=== PATIENT | female | born 1940 | race Caucasian/White ===

== ENCOUNTER 2022-04-25 10:07 | Inpatient (IN) | payer MEDICARE ==
[~2022-04-25] VITALS: Ht 160 cm; Wt 107.8 kg
[2022-04-25] MEDS ORDERED: RIVA20TA2 PO (11:02)
[2022-04-25] MEDS ORDERED: OXYC1TAB11 PO (11:02)
[2022-04-25] MEDS ORDERED: CYCL10TA25 PO (11:02)
[2022-04-25] MEDS ORDERED: METO50TA7 PO (11:02)
[2022-04-25] MEDS ORDERED: LEVO100T7 PO (11:02)
[2022-04-25] MEDS ORDERED: CFTR1PB IV (11:02)
[2022-04-25] MEDS ORDERED: CYAN-41 PO (11:02)
[2022-04-25 11:15] VITALS: BP 112/65
[2022-04-25] MEDS ORDERED: FLEET ENEMA ADULT 1 EA BTL PR PRN (11:15)
[2022-04-25] MEDS ORDERED: MELATONIN 3 MG TABLET PO PRN (11:15)
[2022-04-25] MEDS ORDERED: diphenhydrAMINE 25 MG TAB (BENADRYL) PO PRN (11:15)
[2022-04-25] MEDS ORDERED: BISACODYL 10 MG SUPP (DULCOLAX) PR PRN (11:15)
[2022-04-25] MEDS ORDERED: guaiFENesin/CODEINE (ROBITUSSIN AC) 10ML UDC PO PRN (11:15)
[2022-04-25] MEDS ORDERED: ACETAMINOPHEN 325 MG TABLET PO PRN (11:15)
[2022-04-25] MEDS ORDERED: ALPRAZolam 0.25 MG (XANAX) TAB PO PRN (11:15)
[2022-04-25] MEDS ORDERED: LACTULOSE SYRUP 10GM/15ML (ENULOSE) 30ML UDC PO PRN (11:15)
[2022-04-25] MEDS ORDERED: CALCIUM CARBONATE 500 MG (TUMS) TAB.CHEW PO PRN (11:15)
[2022-04-25] MEDS ORDERED: LOPERAMIDE 2 MG (IMODIUM) TABLET PO PRN (11:15)
[2022-04-25] MEDS ORDERED: DOCUSATE SODIUM 100 MG (COLACE) CAP PO PRN (11:15)
[2022-04-25] MEDS ORDERED: ONDANSETRON 4 MG (ZOFRAN) ORAL DISSOLVE TAB PO PRN (11:15)
--- NOTE | 2022-04-25 11:54 | Physical Therapy Evaluation ---
PT Evaluation-General Medical Diagnosis Admission Date Apr 25, 2022 at 11:00 Medical Diagnosis: debility Onset Date: Apr 21, 2022 Therapy Diagnosis Therapy Diagnosis: impaired mobility, strength Precautions Precautions/Isolations: Fall Prevention, Standard Precautions Referral Physician: Opal Ortiz DO Reason for Referral: Evaluation/Treatment Medical History Additional Medical History knee surg Reviewed History: Yes Social History Home: [facility] Current Living Status: Children Entry Into Home: Stairs With Railing PT Steps Into Home: 5 Patient states she doesn't have to go to the basement or second floor. Prior Prior Level of Function SCALE: Activities may be completed with or without assistive devices. 9-Xxnaxrlbap-fushaxm completes the activity by him/herself with no assistance from a helper. 5-Set-up or Clean-up Assistance-helper sets up or cleans up; patient completes activity. Glidden assists only prior to or following the activity. 4-Supervision or Touching Assistance-helper provides verbal cues and/or touching/steadying and/or contact guard assistance as patient completes activity. Assistance may be provided throughout the activity or intermittently. 3-Partial/Moderate Assistance-helper does LESS THAN HALF the effort. Glidden lifts, holds or supports trunk or limbs, but provides less than half the effort. 2-Substantial/Maximal Assistance-helper does MORE THAN HALF the effort. Glidden lifts or holds trunk or limbs and provides more than half the effort. 7-Pesedenje-lpgdil does ALL the effort. Patient does none of the effort to complete the activity. Or, the assistance of 2 or more helpers is required for the patient to complete the activity. If activity was not attempted, code reason: 7-Patient Refused. 9-Not Applicable-not attempted and the patient did not perform the activity before the current illness, exacerbation or injury. 10-Not Attempted due to Environmental Limitations-(lack of equipment, weather restraints, etc.). 88-Not Attempted due to Medical Conditions or Safety Concerns. Bed Mobility: 6 Transfers (B,C,W/C): 6 Gait: 6 Indoor Mobility (Ambulation): Independent PT Evaluation-Current Subjective Patient in family vehicle pre tx, agrees to PT, has 9/10 low back pain. Will be co-treating with OT for part of tx due to poor patient mobility, strength, endurance, severe pain with activity, coordinate UE and LE during activity, safety and reduce risk of falls. Pain Section J - Health Conditions 1. Rarely or not at all 2. Occasionally 3. Frequently 4. Almost constantly 8. Unable to answer Pain Effect on Sleep: 4 Pain Interference with Therapy: 4 Pain Interference w/Day-to-Day: 4 Pt/Family Goals to be independent at home Objective Patient Orientation: Person, Place, Situation ROM/Strength ROM Lower Extremities WNL Strength Lower Extremities LLE (hip flexion 3/5, knee flexion 4/5, knee extension 4/5, dorsiflexion 4/5), RLE (hip flexion 3/5, knee flexion 4/5, knee extension 4/5, dorsiflexion 4/5) Sensory Vision: Functional Hearing: Impaired Sensation Right Lower Extremit: Intact Sensation Left Lower Extremity: Intact Transfers Roll Left & Right (QC): 6 Sit to Lying (QC): 4 Lying to Sitting/Side of Bed(Q: 4 Sit to Stand (QC): 4 Chair/Ori-sh-Qzltk Xfer(QC): 4 Toilet Transfer (QC): 4 Car Transfer (QC): 4 Patient performs rolling with independence, supine <-> sit SBA, sit <-> stand and transfers CGA, car transfer CGA. Patient has a lot of pain with movement, needs cues for hand placement and safety. Gait Does the Patient Walk?: Yes Mode of Locomotion: Walk Anticipated Mode of Locomotion: Walk Walk 10 feet (QC): 4 Walk 50 ft with 2 Turns(QC): 4 Walk 150 ft (QC): 4 Walking 10ft/uneven surface-QC: 4 Distance: 150'x2 Gait Assistive Device: FWW Comments/Gait Description Patient can ambulate 150' with a rolling walker with CGA (including 50' with at least 2 turns of 90 degrees and 10' over an uneven surface), gait is antalgic, has poor foot clearance, tends to slide feet across the floor, slow ambulation Wheelchair Training Does the Pt Use a Wheelchair?: No Wheel 50 ft with 2 turns (QC): 9 Wheel 150 ft (QC): 9 Stairs 1 Step (curb) (QC): 4 4 Steps (QC): 88 12 Steps (QC): 88 Walking Assistive Device: Walker Patient can go up and down 1 step using a rolling walker with CGA, cues for foot placement and safety. Balance Sitting Static: Normal Sitting Dynamic: Normal Standing Static: Normal Standing Dynamic: Good Picking up an Object (QC): 4 (CGA using a awning erector) Treatment Patient also toileted and performed some dressing. PT performed bed mobility and transfers, ambulation, stair training, positioning and safety during toileting and dressing, OT performed toileting, dressing, UE positioning and safety during activity. Assessment/Needs Patient in recliner post tx with nurse call, phone, tray, all needs met. Patient has impaired mobility, strength, endurance, severe pain with activity. However, just CGA for transfers and ambulation. Rehab Potential: Fair PT Short Term Goals Short Term Goals Time Frame: May 02, 2022 Sit to stand: 4 (SBA) Chair/oxm-sw-myeky transfer: 4 (SBA) Walk 10 feet: 4 (SBA) Walk 50 feet with two turns: 4 (SBA) Walk 150 feet: 4 (SBA) PT Seed Sorter Goals Seed Sorter Goals PT Jail Goals Time Frame: May 09, 2022 Roll Left to Right (QC): 6 Sit to Lying (QC): 6 Lying-Sitting on Side/Bed(QC): 6 Sit to Stand (QC): 6 Chair/Dju-fz-Kawjr Xfer(QC): 6 Toilet/Commode Transfer (QC): 6 Car Transfer (QC): 6 Does the Patient Walk: Yes Walk 10 feet (QC): 6 Walk 10ft-Uneven Surface(QC): 6 Walk 50ft with 2 Turns (QC): 6 Walk 150 ft (QC): 6 Wheel 50 feet with 2 turns (QC: 9 Wheel 150 feet: 9 1 Step (curb) (QC): 4 (SBA) 4 Steps (QC): 4 (SBA) 12 Steps (QC): 88 Picking up an Object (QC): 6 (using awning erector) PT Plan Problem List Problem List: Activity Tolerance, Functional Strength, Safety, Balance, Gait, Transfer, Bed Mobility, ROM Treatment/Plan Treatment Plan: Continue Plan of Care Treatment Plan: Bed Mobility, Education, Functional Activity Larry, Functional Strength, Group Therapy, Gait, Safety, Therapeutic Exercise, Transfers Treatment Duration: May 09, 2022 Frequency: At least 5 of 7 days/Wk (IRF) Estimated Hrs Per Day: 1.5 hours per day Patient and/or Family Agrees t: Yes Safety Risks/Education Patient Education: Gait Training, Transfer Techniques, Steps, Correct Positioning, Safety Issues Teaching Recipient: Patient Teaching Methods: Demonstration, Discussion Response to Teaching: Reinforcement Needed Discharge Recommendations Plan Patient will perform bed mobility and transfer training, balance and endurance training, functional strengthening, stair training, gait training, and education, to improve functional mobility and independence at home. Therapy Discharge Recommendati: Home & Family, Post Acute PT Time Time In: 1100 Time Out: 1210 DATE: Apr 25, 2022 Total Billed Treatment Time: 60 Total Billed Treatment 1 visit EVM 10' FA 50' PT eval from 2025-0715, OT eval from [id number], co-treat from [id number] MEE SURESH PT Apr 25, 2022 11:54
--- NOTE | 2022-04-25 11:54 | Occupational Therapy Eval ---
OT Evaluation-General/PLF Medical Diagnosis Admission Date Apr 25, 2022 at 11:00 Medical Diagnosis: debility Onset Date: Apr 21, 2022 Therapy Diagnosis Therapy Diagnosis: Decreased ADL status, weakness Precautions Precautions/Isolations: Fall Prevention, Standard Precautions Referral Physician: Angel Brown Reason: Evaluation/Treatment Medical History Additional Medical History nephrolithiasis, HTN, hypothyroidism, morbid obesity, permanent afib, hypertrophic nonobstructive cardiomyopathy, SSS s/p pacemaker placement, HADLEY on CPAP, ESWL, hemorrhoidectomy, L breast biopsy, L knee replacement. Current History ED via EMS from home with reports of rigors upon awakening and new onset of midline low back pain. Social History Home: Single Level Current Living Status: Children (daughter and son in law) ADL-Prior Level of Function SCALE: Activities may be completed with or without assistive devices. 0-Xxmmfggytg-ktsfzlo completes the activity by him/herself with no assistance from a helper. 5-Set-up or Clean-up Assistance-helper sets up or cleans up; patient completes activity. Chamberlain assists only prior to or following the activity. 4-Supervision or Touching Assistance-helper provides verbal cues and/or touching/steadying and/or contact guard assistance as patient completes activity. Assistance may be provided throughout the activity or intermittently. 3-Partial/Moderate Assistance-helper does LESS THAN HALF the effort. Chamberlain lifts, holds or supports trunk or limbs, but provides less than half the effort. 2-Substantial/Maximal Assistance-helper does MORE THAN HALF the effort. [place]lain lifts or holds trunk or limbs and provides more than half the effort. 5-Rkuyusziy-zvxfhj does ALL the effort. Patient does none of the effort to complete the activity. Or, the assistance of 2 or more helpers is required for the patient to complete the activity. If activity was not attempted, code reason: 7-Patient Refused. 9-Not Applicable-not attempted and the patient did not perform the activity before the current illness, exacerbation or injury. 10-Not Attempted due to Environmental Limitations-(lack of equipment, weather restraints, etc.). 88-Not Attempted due to Medical Conditions or Safety Concerns. ADL PLOF Comments Pt reports IND with ADLs and functional mobility at PLOF, no AD. Pt's family reports she should have been using an AD, but pt didn't want to. Pt has a walk in shower with SC. Pt typically assists with cooking/cleaning and letting her daughter's dog outside. Self Care: Independent Functional Cognition: Independent DME/Equipment: Bath Chair, Shower OT Current Status Subjective Pt agreeable to OT Tx. Reports pain 9/10 in low back, indicates this is new since her recent illnesses. Pain Numeric Pain Scale: 9 Location: Lower Location Body Site: Back Mental Status/Objective Patient Orientation: Person, Place, Situation Current Glasses/Contacts: Yes Hearing Aids: No Dentures/Partials: Yes (at home) Hand Dominance: Right Upper Extremity ROM WFL, RUE shoulder flexion to approx 90 degrees, LUE shoulder flexion to approx 110 degrees Upper Extremity Coordination WFL Upper Extremity Sensation WFL Upper Extremity Strength grossly 3+/5 ADL-Treatment Eating (QC): 6 Oral Hygiene (QC): 5 (per pt report) Shower/Bathe Self (QC): 4 (SBA) Upper Body Dressing (QC): 5 (Per pt report) Lower Body Dressing (QC): 4 (Per pt report, SBA) On/Off Footwear (QC): 6 (IND donning/doffing gripper socks and slip on shoes at chair level.) Toileting Hygiene (QC): 4 (SBA) Other Treatments OT evaluation complete. OT/PT cotreat due to skill of 2 clinicians required which a pc network technician could not perform in order to coordinate UE/LEs, decrease fall risk, and due to pt's limitations in pain, strength, and activity tolerance. OT focused on UE placement, ADLs, and cues for sequencing and safety. PT focused on LE placement, gross overall movement, and transfers/mobility. Pt completed functional transfers and mobility using FWW, including car transfer, uneven surface, functional mobility using FWW, step, bed mobility. Pt transferred onto toilet to complete toileting, then transferred to recliner to complete ADLs. Post tx, pt in recliner, call light in reach and all needs met. IND with rolling, SBA supine to/from sit, CGA sit to/from stand, CGA car transfer, CGA 150' with FWW. Pt requires cues for UE placement with walker/transfers. Education OT Patient Education: Correct positioning, Energy conservation, Exercise program, Modified ADL techniques, Progress toward Goal/Update tx plan, Purpose of tx/functional activities, Rehab process Teaching Recipient: Patient Teaching Methods: Discussion Response to Teaching: Verbalize Understanding BIMS CAM BIMS Expression of Ideas and Wants: Without Difficulty Understanding Verbal Content: Understands Brief Interview/Mental Status: Yes IRF JHONNY BIMS: IRF JHONNY BIMS Response (Comments) Value Repitition of Three Words Three 3 Recalls Socks No, Could Not Recall 0 Recalls Blue No, Could Not Recall 0 Recalls Bed No, Could Not Recall 0 Year Correct 3 Month Accurate Within 5 Days 2 Day Correct 1 Total 9 CAM Mental Status Change/Baseline: 0 Inattention: 0 Disorganized thinkin Altered level of consciousness: 0 OT Short Term Goals Short Term Goals Time Frame: May 01, 2022 Shower/bathe self: 5 Upper body dressin Lower body dressin Putting on/taking off footwear: 5 OT Yarn Polishing Machine Operator Goals Yarn Polishing Machine Operator Goals Time Frame: May 17, 2022 Acute change in mental status: 0 Inattention: 0 Disorganized thinkin Altered level of consciousness: 0 Eating (QC): 6 Oral Hygiene (QC): 6 Toileting Hygiene (QC): 6 Shower/Bathe Self (QC): 6 Upper Body Dressing (QC): 6 Lower Body Dressing (QC): 6 On/Off Footwear (QC): 6 Additional Goals: 1-Demonstrate ADL Tasks, 2-Verbalize Understanding, 3-Improv eStrength/Larry 1=Demonstrate adherence to instructed precautions during ADL tasks. 2=Patient will verbalize/demonstrate understanding of assistive devices/modifications for ADL. 3=Patient will improve strength/tolerance for activity to enable patient to p erform ADL's. OT Education/Plan Problem List/Assessment Assessment: Decreased Activ Tolerance, Decreased UE Strength, Impaired Funct Balance, Impaired I ADL's, Impaired Self-Care Skills Discharge Recommendations Plan/Recommendations: Continue POC Treatment Plan/Plan of Care Patient would benefit from OT for education, treatment and training to promote independence in ADL's, mobility, safety and/or upper extremity function for ADL's. Plan of Care: ADL Retraining, Functional Mobility, Group Exercise/Act as Ind, U E Funct Exercise/Act Treatment Duration: May 17, 2022 Frequency: At least 5 of 7 days/Wk (IRF) Estimated Hrs Per Day: 1.5 hours per day Agreement: Yes Rehab Potential: Good Time Start Time: 11:10 Stop Time: 12:10 DATE: Apr 25, 2022 Total Time Billed (hr/min): 60 Billed Treatment Time OT eval from [id number], co-treat from [id number] 1, EVL (10'), FA 2 (30'), ADL (20') JESS REY OT Apr 25, 2022 11:54
--- NOTE | 2022-04-25 12:15 | PM&R Post Admission Assessment ---
PM&R HP Date of Visit: Apr 25, 2022 Time of Visit: 13:00 History of Present Illness CC: Debility from sepsis and E coli bacteremia HPI: This is an 81yoWF clinic patient of [facility] who has a h/o AF and HADLEY on CPAP who presents to the ARU following a hospital course at [facility] where she was admitted for sepsis from UTI and ultimately revealed E coli bacteremia sensitive to Rocephin. Patient feels much better today. Bowels are moving. PLOF was independent with all ADL's and no use of AD. Patient maintained on OAC. Patient has had multiple admits recently for various issues and is in need of strengthening in order to maintain clinical stability. Past Ccccfjf-Ugbeww-Qlukkv Hx Past Med/Social Hx: Reviewed Nursing Past Med/Soc Hx, Reviewed and Corrections made Patient Social History Marrital Status: Employed/Student: retired Alcohol Use: Denies Use Smoking Status: Never a Smoker Immunizations Up To Date Date of Influenza Vaccine: Feb 23, 2022 Past Medical History Respiratory: Sleep Apnea Currently Using CPAP: Yes Currently Using BIPAP: No Cardiac: Atrial Fibrillation, High Cholesterol, Hypertension Genitourinary: Bladder Infection Gastrointestinal: Gastroesophageal Reflux Musculoskeletal: Arthritis, Chronic Back Pain Endocrine: Hypothyroidsim Prior Level of Function Bed Mobility: 6 Transfers: 6 Gait: 6 Indoor Mobility (Ambulation): Independent Self Care: Independent Functional Cognition: Independent Current Level of Fuctioning Roll Left to Right: 6 Sit to Lyin Lying to Sitting/Side of Bed: 4 Sit to Stand: 4 Chair/Kqw-yr-Babpa Xfer: 4 Car Transfer: 4 Does the Patient Walk: Yes Mode of Locomotion: Walk Anticipated Mode of Locomotion: Walk Walk 10 feet: 4 Walk 50 ft with 2 Turns: 4 Walk 150 ft: 4 Walking 10ft on uneven surface: 4 Gait Assistive Device: FWW Does the Pt Use a Wheelchair: No Wheel 50 ft with 2 turns: 9 Wheel 150 ft: 9 1 Step (curb): 4 4 Steps: 88 Walking Assistive Device: Walker 12 Steps: 88 Picking up an Object: 4 (CGA using a metal extrusion supervisor) Eatin Oral Hygiene: 5 (per pt report) Shower/Bathe Self: 4 (SBA) Upper Body Dressin (Per pt report) Lower Body Dressin (Per pt report, SBA) On/Off Footwear: 6 (IND donning/doffing gripper socks and slip on shoes at chair level.) Toileting Hygiene: 4 (SBA) PM&R Allergy/Meds/Data Review Allergies Coded Allergies: No Known Drug Allergies (Unverified , 04/25/22) Home Medications Scheduled Ceftriaxone Sod (Ceftriaxone), 1 GM IV DAILY, (Reported) Cyanocobalamin (Vitamin B-12) (Vitamin B-12), 1,000 MCG PO DAILY, (Reported) Levothyroxine Sodium (Levothyroxine Sodium), 100 MCG PO DAILY, (Reported) Metoprolol Succinate (Metoprolol Succinate), 50 MG PO DAILY, (Reported) Rivaroxaban (Xarelto Tablet), 20 MG PO DAILY, (Reported) Scheduled PRN Cyclobenzaprine HCl (Cyclobenzaprine HCl), 10 MG PO Q8H PRN for MUSCLE SPASMS, (Reported) Oxycodone HCl/Acetaminophen (Oxycodone-Acetaminophen 5-325), 1 EACH PO Q4H PRN for PAIN-SEVERE, (Reported) Current Medications Current Medications Reviewed Review of Systems Constitutional: see HPI, dizziness, malaise, weakness EENTM: no symptoms reported Respiratory: no symptoms reported Cardiovascular: no symptoms reported Gastrointestinal: no symptoms reported Genitourinary: no symptoms reported Musculoskeletal: back pain, joint pain, muscle pain, muscle stiffness, muscle cramps, muscle twitching, muscle weakness Skin: no symptoms reported Psychiatric/Neurological: No Symptoms Reported All Other Systems Reviewed Negative Unless Noted: Yes Physical Exam Physical Exam Vital Signs Capillary Refill : Height, Weight, BMI Height: '" Weight: lbs. oz. kg; BMI Method: General Appearance: No Apparent Distress, WD/WN, Chronically ill, Obese Eyes: Bilateral Eye Normal Inspection, Bilateral Eye PERRL HEENT: PERRL/EOMI, Normal ENT Inspection, Pharynx Normal Neck: Full Range of Motion, Normal Inspection, Non Tender, Supple, Carotid Bruit Respiratory: Chest Non Tender, Lungs Clear, Normal Breath Sounds, No Accessory Muscle Use, No Respiratory Distress Cardiovascular: Regular Rate, Rhythm, No Edema, No Gallop, No JVD, No Murmur, Normal Peripheral Pulses Gastrointestinal: Normal Bowel Sounds, No Organomegaly, No Pulsatile Mass, Non Tender, Soft Back: Normal Inspection, No CVA Tenderness, Decreased Range of Motion Extremity: Normal Capillary Refill, Normal Inspection, Non Tender, No Calf Tenderness, No Pedal Edema Neurologic/Psychiatric: Alert, Oriented x3, No Motor/Sensory Deficits, Normal Mood/Affect, Abnormal Gait, Motor Weakness (generalized) Skin: Normal Color, Warm/Dry Lymphatic: No Adenopathy PM&R Medical Assessment & Plan REHAB/MEDICAL ASSESSMENT AND PLAN: REHAB IMPAIRMENT GROUP: Debility ETIOLOGIC DIAGNOSIS: Debility The comorbidities that impact the patients function and/or functional outcome by: poor stamina, advanced age, recent bacteremia, fall risk REHAB PLAN: The patient is being admitted to our comprehensive inpatient rehabilitation facility and can tolerate the intensity of service consisting of at least: 180 minutes of therapy a day, 5 out of 7 days a week Rehab treatment will consist of: PT OT will focus on regaining function with use of AD in order to prevent fall and increase stamina in order to regain independence The patient/family has a good understanding of our discharge process and will benefit from an interdisciplinary inpatient rehabilitation program. The patient has potential to make improvement and is in need of at least two of the following multidisciplinary therapies including but not limited to physical, occupational, speech, and prosthetics and orthotics. Additionally the patient will need services from respiratory, nutritional services, wound care, psychology, etc. (Customize this to each patient). Given the patients complex condition and risk of further medical complications, rehabilitation services cannot be safely or effectively provided at a lower level of care such as a retirement facility. BARRIERS TO DISCHARGE: advanced age ESTIMATED LOS: 7 days DISPOSITION: Home RELEVANT CHANGES SINCE PREADMISSION SCREENING: I have compared the patients medical and functional status at the time of the preadmission screening and there are: no changes PROGNOSIS: Good REHABILITATION GOALS: 1. PT OT will focus on regaining function with use of AD in order to prevent fall and increase stamina in order to regain independence All the above goals were reviewed with the patient and he/she is in agreement. By signing this document, I acknowledge that I have personally performed a full physical examination on this patient within 24 hours of admission to this inpatient rehabilitation facility and have determined the patient to be able to tolerate the above course of treatment at an intensive level for a reasonable period of time. I will be completing a detailed individualized Plan of Care for this patient by day #4 of the patients stay based upon the Preadmission Screen, the Post-Admission Evaluation, and the therapy evaluations. Admission Dx/Comorbidities: (1) Debility ICD Codes: R53.81 - Other malaise Assessment/Plan Assessment and Plan Assess & Plan/Chief Complaint Assessment: Debility E coli bacteremia maintained on Rocephin HADLEY on CPAP HTN HLP AF UTI OA Chronic pain Plan: Pain control IV abx Monitor closely BM regimen PT OT JEYSON SHEFFIELD DO Apr 25, 2022 12:15
[2022-04-25] MEDS ORDERED: RX-CYCLOBENZAPRINE 10 MG (FLEXERIL) TAB PPK#3 PO PRN (12:30)
[2022-04-25] MEDS ORDERED: CATHETER FLUSH 10 ML SYR IVP PRN (13:00)
--- NOTE | 2022-04-25 13:05 | ST Cognitive Linguistic Eval ---
Speech Evaluation-General Medical Diagnosis Debility Onset Date: Apr 21, 2022 Therapy Diagnosis Therapy Diagnosis: Intact (Baseline) Cognition Precautions Precautions: Fall Precautions/Isolations: Fall Prevention, Standard Precautions Referral Referring Physician: Dr. Ortiz Reason for Referral: Evaluation/Treatment Medical History Current History The patient is an 81 year old female with a past medical history of nephrolithiasis, HTN, hypothyroidism, morbid obesity, permanent atrial fibrillation, hypertrophic non-obstructive cardiomyopathy, SSS s/p pacemaker placement, HADLEY (receiving CPAP), and L knee replacement, who presented to the acute rehabilitation unit with new onset of low back pain. Reviewed History: Yes Social History Current Living Status: Children Speech PLF-Current Status Prior Level of Function The patient (and the patient's son) denied recent concerns, changes, or difficulties with her cognitive, speech, or language ability. Per patient and son, the patient's cognition is at baseline function. Subjective The patient was seated upright in her recliner, awake and alert, upon entrance to her room by the clinician. The patient's son is present at bedside and remains for the assessment. The patient greeted the clinician appropriately and was agreeable to participation in the cognitive linguistic evaluation. Language Eval: Auditory Comprehends Simple Yes/No Ques: Functional Indent/Objects Multiple Martel: Functional Follows 1-Step Commands: Functional Follows General Conversations: Functional Language Eval: Verbal Language Completes Spontaneous Greeting: Functional Produces Auto, Serial Info: Functional Imitates Simple Words/Phrases: Functional Word Finding: Functional Requests Basic Needs: Functional States Basic Personal Info: Functional Language Evaluation: Reading Follows Simple Written Direct: Functional The patient's son provided the patient with his reading glasses which aided the patient's vision. Per son, he will bring the patient's glasses to her in the near future. Cognitive Patient Orientation The patient was independently oriented to self, location, month, day of the week, and year. Objective Cognitive Domain Attention: WNL Memory: WNL Problem Solving: Mild (Baseline.) Visuospatial Skills: Mild (Aided with the presence of reading glasses.) Composite Severity Rating: WNL (Minimal impairments (baseline).) Clock Drawing Severity Rating: WNL Objective Formal/Standardized Tests [facility] Mental Status Exam (UMS) Results The patient demonstrated a result of +26/30 on the SLUMS correlating to cognitive linguistic skills within normal limits per SLUMS protocol. Oral Motor/Speech Production The patient does not display dysarthria or apraxia of speech. The patient is 100% intelligible in known and unknown contexts. Impression The patient displayed minimal cognitive deficits throughout the standardized screening in the areas of problem solving. The clinician discussed the patient's impairments with the patient and the patient's son. Per patient's son (and patient), the patient is currently at baseline cognitive function. If a decline in the patient's cognitive status is appreciated by the patient, family member o r staff, the clinician encourages a follow up evaluation and consult. Speech-Plan Treatment Plan Speech Therapy Treatment Plan: Discontinue ST Treatment Duration: Apr 25, 2022 Frequency: 1 time per week Estimated Hrs Per Day: .5 hour per day Rehab Potential: Good Pt/Family Agrees to Plan: Yes Safety Risks/Education Teaching Recipient: Patient, Family Teaching Methods: Discussion Response to Teaching: Verbalize Understanding Education Topics Provided: Results, Recommendations, Plan of Care Time Speech Therapy Time In: 12:10 Speech Therapy Time Out: 12:40 DATE: Apr 25, 2022 Total Billed Time: 30 Billed Treatment Time 1, NOLBERTO JUNG ELIZABETH ST Apr 25, 2022 13:05
--- NOTE | 2022-04-25 13:16 | Occupational Ther Daily Note ---
OT Current Status-Daily Note Subjective Pt up in recliner, agreeable to OT tx. Mental Status/Objective Patient Orientation: Normal For Age ADL-Treatment Therapy Code Descriptions/Definitions Functional [place] Measure: 0=Not Assessed/NA 4=Minimal Assistance 1=Total Assistance 5=Supervision or Setup 2=Maximal Assistance 6=Modified [place] 3=Moderate Assistance 7=Complete IndependenceSCALE: Activities may be completed with or without assistive devices. 4-Qqgnwqvypv-nrhxvix completes the activity by him/herself with no assistance from a helper. 5-Set-up or Clean-up Assistance-helper sets up or cleans up; patient completes activity. [place] assists only prior to or following the activity. 4-Supervision or Touching Assistance-helper provides verbal cues and/or touching/steadying and/or contact guard assistance as patient completes activity. Assistance may be provided throughout the activity or intermittently. 3-Partial/Moderate Assistance-helper does LESS THAN HALF the effort. [place] lifts, holds or supports trunk or limbs, but provides less than half the effort. 2-Substantial/Maximal Assistance-helper does MORE THAN HALF the effort. [place] lifts or holds trunk or limbs and provides more than half the effort. 0-Oygeatmhw-ubhdvv does ALL the effort. Patient does none of the effort to complete the activity. Or, the assistance of 2 or more helpers is required for the patient to complete the activity. If activity was not attempted, code reason: 7-Patient Refused. 9-Not Applicable-not attempted and the patient did not perform the activity before the current illness, exacerbation or injury. 10-Not Attempted due to Environmental Limitations-(lack of equipment, weather restraints, etc.). 88-Not Attempted due to Medical Conditions or Safety Concerns. Eating (QC): 6 Other Treatment Pt up in recliner after lunch, agreeable to OT tx with focus on increasing BUE strength, fine motor strength/coordination and activity tolerance. Pt removed beads from moderate resistance theraputty, able to locate all beads without cues. Post tx, pt in recliner, call light in reach and all needs met. OT Short Term Goals Short Term Goals Time Frame: May 01, 2022 Shower/bathe self: 5 Upper body dressin Lower body dressin Putting on/taking off footwear: 5 OT Longterm Goals Defensive Line Coach Goals Time Frame: May 17, 2022 Acute change in mental status: 0 Inattention: 0 Disorganized thinkin Altered level of consciousness: 0 Eating (QC): 6 Oral Hygiene (QC): 6 Toileting Hygiene (QC): 6 Shower/Bathe Self (QC): 6 Upper Body Dressing (QC): 6 Lower Body Dressing (QC): 6 On/Off Footwear (QC): 6 Additional Goals: 1-Demonstrate ADL Tasks, 2-Verbalize Understanding, 3- ImproveStrength/Larry 1=Demonstrate adherence to instructed precautions during ADL tasks. 2=Patient will verbalize/demonstrate understanding of assistive devices/modifications for ADL. 3=Patient will improve strength/tolerance for activity to enable patient to perform ADL's. OT Education/Plan Problem List/Assessment Assessment: Decreased Activ Tolerance, Decreased UE Strength, Impaired Funct Balance, Impaired I ADL's, Impaired Self-Care Skills Discharge Recommendations Plan/Recommendations: Continue POC Treatment Plan/Plan of Care Patient would benefit from OT for education, treatment and training to promote independence in ADL's, mobility, safety and/or upper extremity function for ADL's. Plan of Care: ADL Retraining, Functional Mobility, Group Exercise/Act as Ind, UE Funct Exercise/Act Treatment Duration: May 17, 2022 Frequency: At least 5 of 7 days/Wk (IRF) Estimated Hrs Per Day: 1.5 hours per day Agreement: Yes Rehab Potential: Good Time Start Time: 12:55 Stop Time: 13:10 DATE: Apr 25, 2022 Total Time Billed (hr/min): 15 Billed Treatment Time 1, FA JESS REY OT Apr 25, 2022 13:16
[2022-04-25] MEDS: CATHETER FLUSH 10 ML SYR IVP SCH ×2 (14:00→20:54)
--- NOTE | 2022-04-25 14:28 | Physical Therapy Daily Note ---
PT Daily Note-Current Subjective Pt. in recliner, agrees to sup and seated LE ex. Pt. c/o pain in low back with attempts to move trunk and body up in chair and as she raised and lowered her head and trunk in he recliner Pain Numeric Pain Scale: 6 Location: Medial Location Body Site: Back Pain Description: Ache Section J - Health Conditions 1. Rarely or not at all 2. Occasionally 3. Frequently 4. Almost constantly 8. Unable to answer Pain Effect on Sleep: 4 Pain Interference with Therapy: 4 Pain Interference w/Day-to-Day: 4 Appearance appears fatigued, eyes closed mostly, low voice Mental Status Patient Orientation: Normal For Age Transfers SCALE: Activities may be completed with or without assistive devices. 9-Xtwgxabrnr-bqmgxuo completes the activity by him/herself with no assistance from a helper. 5-Set-up or Clean-up Assistance-helper sets up or cleans up; patient completes activity. [place] assists only prior to or following the activity. 4-Supervision or Touching Assistance-helper provides verbal cues and/or touching/steadying and/or contact guard assistance as patient completes activity. Assistance may be provided throughout the activity or intermittently. 3-Partial/Moderate Assistance-helper does LESS THAN HALF the effort. [place] lifts, holds or supports trunk or limbs, but provides less than half the effort. 2-Substantial/Maximal Assistance-helper does MORE THAN HALF the effort. [place] lifts or holds trunk or limbs and provides more than half the effort. 3-Bknewjajy-jkbijy does ALL the effort. Patient does none of the effort to complete the activity. Or, the assistance of 2 or more helpers is required for the patient to complete the activity. If activity was not attempted, code reason: 7-Patient Refused. 9-Not Applicable-not attempted and the patient did not perform the activity before the current illness, exacerbation or injury. 10-Not Attempted due to Environmental Limitations-(lack of equipment, weather restraints, etc.). 88-Not Attempted due to Medical Conditions or Safety Concerns. scooted self up in recliner with it reclined Exercises Supine Ex: Bridging, Ankle pumps, Quad Set, Glut sets, Heel Slides, Scooting, Straight leg raise, Hip abd/add Supine Reps: 15 Treatments instruction in use of recliner for positioning and comfort, sup and sit LE exs Assessment Current Status: Good Progress pt. fatigued PT Short Term Goals Short Term Goals Time Frame: May 02, 2022 Sit to stand: 4 (SBA) Chair/zmt-rt-zwvuq transfer: 4 (SBA) Walk 10 feet: 4 (SBA) Walk 50 feet with two turns: 4 (SBA) Walk 150 feet: 4 (SBA) PT Residential Goals Drawer In Hand Goals PT Residential Goals Time Frame: May 09, 2022 Roll Left & Right (QC): 6 Sit to Lying (QC): 6 Lying-Sitting on Side/Bed(QC): 6 Sit to Stand (QC): 6 Chair/Ngu-zp-Pqgsj Xfer(QC): 6 Toilet Transfer (QC): 6 Car Transfer (QC): 6 Does the Patient Walk: Yes Walk 10 feet (QC): 6 Walk 50ft with 2 Turns (QC): 6 Walk 150 ft (QC): 6 Walking 10ft on Uneven Surface: 6 1 Step (curb) (QC): 4 (SBA) 4 Steps (QC): 4 (SBA) 12 Steps (QC): 88 Picking up an Object (QC): 6 (using molding plasterer) Wheel 50 feet with 2 turns (QC: 9 Wheel 150 feet: 9 PT Plan Treatment/Plan Treatment Plan: Continue Plan of Care Treatment Plan: Bed Mobility, Education, Functional Activity Larry, Functional Strength, Group Therapy, Gait, Safety, Therapeutic Exercise, Transfers Treatment Duration: May 09, 2022 Frequency: At least 5 of 7 days/Wk (IRF) Estimated Hrs Per Day: 1.5 hours per day Patient and/or Family Agrees t: Yes Safety Risks/Education Patient Education: Correct Positioning, Safety Issues Teaching Recipient: Patient Teaching Methods: Demonstration, Discussion Response to Teaching: Verbalize Understanding, Return Demonstration, Reinforcement Needed Time Time In: 1410 Time Out: 1425 DATE: Apr 25, 2022 Total Billed Treatment Time: 15 Total Billed Treatment 1,EX15m NIKITA NEWELL RN MATERNAL CHILD Apr 25, 2022 14:28
[2022-04-25] MEDS: oxyCODONE/APAP 5/325MG (PERCOCET 5) TABLET PO PRN (17:36)
[2022-04-25] MEDS: SENNA W/DOCUSATE (SENOKOT S) TABLET PO SCH (20:53)
[2022-04-25] MEDS: DOCUSATE SODIUM 100 MG (COLACE) CAP PO SCH (20:53)
[2022-04-25 20:54] VITALS: BP 106/56
[2022-04-25] MEDS: polyethylene glycoL POWDER 17 GM (MIRALAX) PACK PO SCH (21:10)
[2022-04-26] MEDS: CATHETER FLUSH 10 ML SYR IVP SCH ×3 (04:10→21:48)
[2022-04-26] MEDS: oxyCODONE/APAP 5/325MG (PERCOCET 5) TABLET PO PRN ×4 (04:10→21:37)
[2022-04-26] MEDS: LEVOTHYROXINE 100 MCG (LEVOTHROID) TAB PO SCH (06:00)
[2022-04-26 06:12] LABS: BASOPHILS % (AUTO) 0 % (0-10); EOSINOPHILS # (AUTO) 0.1 10^3/uL (0.0-0.3); EOSINOPHILS % (AUTO) 1 % (0-10); HEMATOCRIT 27 % (35-52); HEMOGLOBIN 8.1 g/dL (11.5-16.0); LYMPHOCYTES # (AUTO) 1.2 10^3/uL (1.0-4.0); LYMPHOCYTES % (AUTO) 15 % (12-44); MEAN CORPUSCULAR HEMOGLOBIN 25 pg (25-34); MEAN CORPUSCULAR HGB CONC 31 g/dL (32-36); MEAN CORPUSCULAR VOLUME 81 fL (80-99); MEAN PLATELET VOLUME 10.7 fL (9.0-12.2); MONOCYTES # (AUTO) 0.6 10^3/uL (0.0-1.0); MONOCYTES % (AUTO) 8 % (0-12); NEUTROPHILS # (AUTO) 5.9 10^3/uL (1.8-7.8); NEUTROPHILS % (AUTO) 74 % (42-75); PLATELET COUNT 262 10^3/uL (130-400)
[2022-04-26 06:30] LABS: ALBUMIN 2.6 GM/DL (3.2-4.5)
[2022-04-26 06:31] LABS: CALCIUM 8.1 MG/DL (8.5-10.1)
[2022-04-26 06:34] LABS: BILIRUBIN,TOTAL 0.8 MG/DL (0.1-1.0)
[2022-04-26 06:36] LABS: CREATININE SERUM 0.7 MG/DL (0.60-1.30)
--- NOTE | 2022-04-26 07:14 | PM&R H&P / Post Admit Assess ---
DAVID WARD 04/26/22 0714: History of Present Illness HPI/Chief Complaint Carmen Saunders (goes by [place]) is an 81yo F who was [facility] after having a UTI caused by E.coli. She was being treated for chronic back pain and reported a h/o poor eating/nutrition. She has been seen for her conditions by her PCP Nadeen Carpenter in [place], and said that the best alleviator of her back pain has been Biofreeze treatments. She was seen with her daughter in the room, both of them requested a medication plan that uses [facility] for the pharmacy, saying they would want a handwritten prescription if necessary. Source: patient, family Exam Limitations: no limitations Date Seen 04/25/22 Attending Physician [facility] PCP Admitting Physician: Opal Sheffield DO Attending Physician: Opal Sheffield DO Referring Physician Date of Admission Apr 25, 2022 at 11:00 Home Medications & Allergies Home Medications Reviewed patient Home Medication Reconciliation performed by pharmacy medication reconciliations emg technician and/or nursing. Patients Allergies have been reviewed. Allergies Allergies Coded Allergies No Known Drug Allergies (Oegqpyxiqu91/1/22) Past Fmuaqzc-Kfkzes-Fndbuf Hx Past Med/Social Hx: Reviewed Nursing Past Med/Soc Hx, Reviewed and Corrections made Patient Social History Marrital Status: Number of Children: 4 Number of living children: 4 Employed/Student: retired Alcohol Use: Denies Use Recreational Drug Use: No Smoking Status: Former Smoker 2nd Hand Smoke Exposure: No Physical Abuse Screen: No Sexual Abuse: No Recent Foreign Travel: No Contact w/other who traveled: No Recent Hopitalizations: Yes Recent Infectious Disease Expo: No Social History very active before Covid pandemic, smoked for 75 years but quit cold turkey, no drinking, rec drugs. no caffeine Immunizations Up To Date Tetanus Booster (TDap): Unknown Pediatric: No Date of Influenza Vaccine: Feb 23, 2022 Seasonal Allergies Seasonal Allergies: Yes Past Medical History Surgeries: Breast, Joint Replacement Cataract, hemmoroid Respiratory: Sleep Apnea Currently Using CPAP: Yes Currently Using BIPAP: No Cardiac: Atrial Fibrillation, High Cholesterol, Hypertension : No Reproductive: No Sexually Transmitted Disease: No HIV/AIDS: No Female Reproductive Disorders: Denies Genitourinary: Bladder Infection Gastrointestinal: Gastroesophageal Reflux Musculoskeletal: Arthritis, Chronic Back Pain Endocrine: Hypothyroidsim Are Your Blood Sugars Over 250: No HEENT: Macular Degeneration Loss of Vision: Right Hearing Impairment: Denies Cancer: Had a Breast biopsy (can't recall exactly how long ago) results came back negative. History of Blood Disorders: No Adverse Reaction to Blood [place]: No Family History Cancer (Brother(67yo) and Sister(60yo) both had bladder cancer) Review of Systems Constitutional: weakness Respiratory: no symptoms reported Cardiovascular: no symptoms reported Gastrointestinal: diarrhea, loss of appetite Genitourinary: no symptoms reported : No Control/STD Prophylaxis: None Musculoskeletal: back pain, muscle pain Skin: no symptoms reported Psychiatric/Neurological: No Symptoms Reported Physical Exam Exam Vital Signs Vital Signs Date Time Temp Pulse Resp B/P (MAP) Pulse Ox O2 Delivery O2 Flow Rate FiO2 04/25/22 21:16 98 Room Air 04/25/22 20:54 36.4 81 18 106/56 (73) Capillary Refill : General Appearance: No Apparent Distress, WD/WN, Chronically ill, Obese HEENT: PERRL/EOMI, Normal ENT Inspection, Pharynx Normal Neck: Full Range of Motion, Normal Inspection, Non Tender, Supple Respiratory: Chest Non Tender, Lungs Clear, Normal Breath Sounds, No Accessory Muscle Use, No Respiratory Distress Cardiovascular: Regular Rate, Rhythm, No Edema, No Gallop, No JVD, No Murmur, Normal Peripheral Pulses Gastrointestinal: Normal Bowel Sounds, No Organomegaly, No Pulsatile Mass, Non Tender, Soft Back: No CVA Tenderness, Decreased Range of Motion, Vertebral Tenderness Extremity: Normal Capillary Refill, Normal Inspection, Non Tender, No Calf Tenderness, No Pedal Edema Neurologic/Psychiatric: Alert, Oriented x3, No Motor/Sensory Deficits, Normal Mood/Affect Reflexes: 2+ Bicep (R), 2+ Bicep (L), 2+ Tricep (R), 2+ Tricep (L), 2+ Knee (R), 2+ Knee (L), 2+ Ankle (R), 2+ Ankle (L) Skin: Normal Color, Warm/Dry Lymphatic: No Adenopathy Results Results/Procedures Labs Laboratory Tests 04/26/22 05:55 Patient resulted labs reviewed. Assessment/Plan Assessment and Plan Assess & Plan/Chief Complaint A: Bacteremia 2/2 E.coli Chronic Back pain Poor nutrition P: Abx Rehab and Biofreeze Meal plan Post Admission Physician Asses The preadmission screen agrees with the post admission assessment that the patient is a good candidate for inpatient rehabilitation. The patient will have a comprehensive program of inpatient rehabilitation with a goal of maximizing level of functional independence prior to discharge home with [family]. The patient will have PT/OT ninety minutes per day, each discipline, five days a week for gait, strengthening, conditioning, balance, ADLs, any patient/family/caregiver training as necessary. Speech therapy to do cognitive assessment and treat as indicated. Rehabilitation nursing to assist with bowel, bladder, skin, wound care, medication administration, pain management. Cast Iron Dipper to assist with discharge planning, community reentry. SCD's for DVT prophylaxis. She appears to be well motivated to participate in three hours of therapy a day. She should be able to tolerate three hours of therapy a day from a medical standpoint. She should benefit from the three hours of therapy a day. She has a reasonable discharge plan, reasonable discharge rehabilitation goals and a supportive family. She has various comorbidities that need to be closely monitored with medications and treatments adjusted on a daily basis as needed. These include: [] Barriers to discharge for this patient who had been independent prior to this are for her to be modified independent to supervision for ADLs and mobility s kills prior to discharge home with [family], so as to lessen the burden of the caregivers. Risks for this patient include: 1. Fall 2. Fracture 3. DVT 4. Pulmonary embolism 5. Wound infection 6. Skin breakdown 7. Contractures 8. Poorly controlled pain 9. Urinary retention 10. UTI 11. Respiratory infection 12. Aspiration [] Estimated Length of Stay: []days Prognosis: Rehab prognosis appears good for goal of discharge home with [family] modified independent to supervision for ADLs and mobility skills. General: Alert, Oriented X3, Cooperative, No Acute Distress HEENT: Atraumatic, PERRLA, Mucous Memb Moist/[place] Neck: No JVD, No Thyromegaly, +2 Carotid Pulse No Bruit, No LAD Lungs: Clear to Auscultation Heart: Other (Afib) Abdomen: Normal Bowel Sounds, No Tenderness Extremities: No Clubbing, No Cyanosis, Normal Pulses Skin: No Rashes, No Significant Lesion Neuro: Normal Speech, Strength at 5/5 X4 Ext, Normal Tone, Sensation Intact, Cranial Nerves 3-12 NL Psych/Mental Status: Mental Status NL, Mood NL Supervisory-Addendum Brief Verification & Attestation Participated in pt care: history Personally performed: exam, history Care discussed with: Medical Student Procedures: n/a OPAL SHEFFIELD DO 04/27/22 0540: History of Present Illness Source: patient, family Exam Limitations: no limitations Time Seen by a Provider: 10:00 Past Qwnwmoy-Kyvceh-Ruohqs Hx Past Med/Social Hx: Reviewed Nursing Past Med/Soc Hx, Reviewed and Corrections made Patient Social History Marrital Status: single Review of Systems Constitutional: see HPI Physical Exam Exam General Appearance: No Apparent Distress, WD/WN, Chronically ill, Obese Post Admission Physician Asses Date seen by provider: Apr 25, 2022 Time seen by provider: 10:00 Admisison Dx: (1) Debility General: Alert, Oriented X3, Cooperative, No Acute Distress Supervisory-Addendum Brief Verification & Attestation Participated in pt care: history, MDM, physical Personally performed: exam, history, MDM, supervision of care Care discussed with: Medical Student Procedures: n/a Results interpretation: Verified all documentation Verification and Attestation of Medical Student E/M Service A medical student performed and documented this service in my presence. I reviewed and verified all information documented by the medical student and made modifications to such information, when appropriate. I personally performed the physical exam and medical decision making. Opal Sheffield, Apr 27, 2022,05:39 DAVID WARD Apr 26, 2022 07:14 OPAL SHEFFIELD DO Apr 27, 2022 05:40
[2022-04-26 07:42] VITALS: BP 104/70
[2022-04-26] MEDS: CYANOCOBALAMIN 1,000 MCG (VITAMIN B-12) TABLET PO SCH (08:13)
[2022-04-26] MEDS: SENNA W/DOCUSATE (SENOKOT S) TABLET PO SCH ×2 (08:13→21:48)
[2022-04-26] MEDS: DOCUSATE SODIUM 100 MG (COLACE) CAP PO SCH ×2 (08:13→21:47)
[2022-04-26] MEDS: meTOproloL SUCCINATE 50 MG (TOPROL XL) TAB PO SCH (08:14)
[2022-04-26] MEDS: RIVAROXABAN 20 MG TABLET (XARELTO) PO SCH (08:14)
[2022-04-26] MEDS ORDERED: CEFTRIAXONE SOD IV SCH (09:00)
[2022-04-26 09:09] VITALS: BP 106/59
[2022-04-26] MEDS: cefTRIAXone 1 GM/50 ML (PRE-MIX) IV SCH (09:14)
[2022-04-26] MEDS: CYCLOBENZAPRINE 10 MG (FLEXERIL) TAB PO PRN (09:20)
[2022-04-26] MEDS: polyethylene glycoL POWDER 17 GM (MIRALAX) PACK PO SCH ×2 (09:25→21:48)
--- NOTE | 2022-04-26 10:05 | Occupational Ther Daily Note ---
OT Current Status-Daily Note Subjective Pt agreeable to OT tx, rates 10/10 pain across lower back. Pain Numeric Pain Scale: 10-Worst Possible Pain Location: Lower Location Body Site: Back Mental Status/Objective Patient Orientation: Normal For Age ADL-Treatment Therapy Code Descriptions/Definitions Functional [place] Measure: 0=Not Assessed/NA 4=Minimal Assistance 1=Total Assistance 5=Supervision or Setup 2=Maximal Assistance 6=Modified [place] 3=Moderate Assistance 7=Complete IndependenceSCALE: Activities may be completed with or without assistive devices. 6-Tfkyyktbyo-kxbykbi completes the activity by him/herself with no assistance from a helper. 5-Set-up or Clean-up Assistance-helper sets up or cleans up; patient completes a ctivity. [place] assists only prior to or following the activity. 4-Supervision or Touching Assistance-helper provides verbal cues and/or touching/steadying and/or contact guard assistance as patient completes activity. Assistance may be provided throughout the activity or intermittently. 3-Partial/Moderate Assistance-helper does LESS THAN HALF the effort. [place] lifts, holds or supports trunk or limbs, but provides less than half the effort. 2-Substantial/Maximal Assistance-helper does MORE THAN HALF the effort. [place] lifts or holds trunk or limbs and provides more than half the effort. 1-Yvtbomegm-dbccuq does ALL the effort. Patient does none of the effort to complete the activity. Or, the assistance of 2 or more helpers is required for the patient to complete the activity. If activity was not attempted, code reason: 7-Patient Refused. 9-Not Applicable-not attempted and the patient did not perform the activity before the current illness, exacerbation or injury. 10-Not Attempted due to Environmental Limitations-(lack of equipment, weather restraints, etc.). 88-Not Attempted due to Medical Conditions or Safety Concerns. Eating (QC): 6 Oral Hygiene (QC): 6 Shower/Bathe Self (QC): 5 Upper Body Dressing (QC): 5 Lower Body Dressing (QC): 5 On/Off Footwear: 5 (slip on shoes. Pt declined socks due to back pain.) Toileting Hygiene (QC): 6 Toilet Transfer (QC): 6 Other Treatment Pt in recliner, used FWW to transfer into bathroom. Pt completed toileting, showering, dressing, and oral care, taking rest breaks as needed for pain. Pt then completed functional tasks at recliner in order to increase BUE strength, fine motor strength and activity tolerance. Pt removed beads from moderate r esistance, green, theraputty, locating all beads without cues. Pt then completed fine motor rubber band activity, placing/removing rubber bands from pegboard, following printed pattern. Pt had several errors on 1st pattern, 0 errors on 2nd pattern, and 2 errors on last pattern. Pt states she has had vision deficits since getting COVID, but hasn't been back to her eye doctor for new prescription. Post tx, pt in recliner, call light in reach and all needs met. Education OT Patient Education: Correct positioning, Energy conservation, Modified ADL techniques, Progress toward Goal/Update tx plan, Purpose of tx/functional activities, Rehab process Teaching Recipient: Patient Teaching Methods: Discussion Response to Teaching: Verbalize Understanding OT Short Term Goals Short Term Goals Time Frame: May 01, 2022 Shower/bathe self: 5 Upper body dressin Lower body dressin Putting on/taking off footwear: 5 OT Longterm Goals [place]der Goals Time Frame: May 17, 2022 Acute change in mental status: 0 Inattention: 0 Disorganized thinkin Altered level of consciousness: 0 Eating (QC): 6 Oral Hygiene (QC): 6 Toileting Hygiene (QC): 6 Shower/Bathe Self (QC): 6 Upper Body Dressing (QC): 6 Lower Body Dressing (QC): 6 On/Off Footwear (QC): 6 Additional Goals: 1-Demonstrate ADL Tasks, 2-Verbalize Understanding, 3- ImproveStrength/Larry 1=Demonstrate adherence to instructed precautions during ADL tasks. 2=Patient will verbalize/demonstrate understanding of assistive devices/modifications for ADL. 3=Patient will improve strength/tolerance for activity to enable patient to perform ADL's. OT Education/Plan Problem List/Assessment Assessment: Decreased Activ Tolerance, Decreased UE Strength, Impaired Funct Balance, Impaired I ADL's Discharge Recommendations Plan/Recommendations: Continue POC Treatment Plan/Plan of Care Patient would benefit from OT for education, treatment and training to promote independence in ADL's, mobility, safety and/or upper extremity function for ADL's. Plan of Care: ADL Retraining, Functional Mobility, Group Exercise/Act as Ind, UE Funct Exercise/Act Treatment Duration: May 17, 2022 Frequency: At least 5 of 7 days/Wk (IRF) Estimated Hrs Per Day: 1.5 hours per day Agreement: Yes Rehab Potential: Good Time Start Time: 09:00 Stop Time: 10:30 DATE: Apr 26, 2022 Total Time Billed (hr/min): 90 Billed Treatment Time 1, ADL 4 (60'), FA 2 (30') JESS ERY OT Apr 26, 2022 10:05
--- NOTE | 2022-04-26 10:33 | Individualized Plan of Care ---
Individualized Plan of Care Rehab Nursing IPOC Order Admission Date Apr 25, 2022 at 11:00 Current Orders Orders Admission Order(Inpt,Obs,Sdc) (04/25/22 11:11) Vital Signs: Per Unit Policy ( 08,16,00 (04/25/22 11:11) Brennan Leong (04/25/22 11:11) Sequential Compression Device (04/25/22 11:11) Piccoloist-Inpt Rehab Con (04/25/22 11:11) Rehab Nursing Orders-Ipoc (04/25/22 11:11) Physical Therapy Rehab Orders (04/25/22 11:11) Occupational Therapy Rehab Ord (04/25/22 11:11) Speech Therapy Rehab Orders (04/25/22 11:11) Cbc With Automated Diff (04/26/22 06:00) Comprehensive Metabolic Panel (04/26/22 06:00) Precautions (Aru) (04/25/22 11:11) Weekly Weight WEEK (04/25/22 11:11) Rehab-Intensity Of Therapy (04/25/22 11:11) Initiate Admission Nursing Pro .admission (04/25/22 11:11) Alprazolam Tablet (Xanax Tablet) (04/25/22 11:15) Calcium Carbonate Chew Tablet (Antacid C (04/25/22 11:15) Diphenhydramine Tablet (Benadryl Tablet) (04/25/22 11:15) Docusate Sodium Capsule (Colace Capsule) (04/25/22 21:00) Docusate Sodium Capsule (Colace Capsule) (04/25/22 11:15) Bisacodyl Suppository (Dulcolax Supposit (04/25/22 11:15) Lactulose Oral Solution (Enulose Oral So (04/25/22 11:15) Na Phos/Na Biphos Enema (Fleet Enema Preet (04/25/22 11:15) Guaifenesin/Codeine Syrup (Robitussin Ac (04/25/22 11:15) Loperamide Tablet (Imodium Tablet) (04/25/22 11:15) Melatonin Tablet (Melatonin Tablet) (04/25/22 11:15) Polyethylene Glycol Powder Pkt (Miralax (04/25/22 21:00) Ondansetron Oral Dissolve Tab (Zofran (04/25/22 11:15) Senna S Tablet (Senokot S Tablet) (04/25/22 21:00) Acetaminophen Tablet/Caplet (Tylenol T (04/25/22 11:15) Code/Resuscitation (04/25/22 11:11) Initiate Admission Nursing Pro .admission (04/25/22 11:11) Admission Arrival Bed Request (04/25/22 11:19) Sodium 2g (2000 Mg) (04/25/22 Breakfast) Nursing Communication (Order) (04/25/22 11:30) Patient Visit (04/25/22 ) Speech Sound Lang Comp (04/25/22 ) Treat. Speech/Lang/Voice (04/25/22 ) Cyanocobalamin Tablet (Vitamin B-12 Tabl (04/26/22 09:00) Rx-Cyclobenzaprine Tablet (Rx-Flexeril T (04/25/22 12:30) Levothyroxine Tablet (Synthroid Tablet) (04/26/22 06:30) Metoprolol Succinate (Xl) Tab (Toprol Xl (04/26/22 09:00) Oxycodone/Apap 5/325mg Tablet (Percocet (04/25/22 12:30) Rivaroxaban Tablet (Xarelto Tablet) (04/26/22 08:00) (Nf) Ceftriaxone Sod (Ceftriaxone) (04/26/22 09:00) Ceftriaxone 1 Gm Pre-Mix (Rocephin 1 Gm (04/26/22 09:00) Cyclobenzaprine Tablet (Flexeril Tablet) (04/25/22 13:00) Sodium Chloride Flush (Catheter Flush Sy (04/25/22 13:00) Sodium Chloride Flush (Catheter Flush Sy (04/25/22 14:00) Patient Visit (04/25/22 ) Exercise Therap, Ea 15 Min (04/25/22 ) Patient Visit (04/25/22 ) Pt Eval Moderate Complexity (04/25/22 ) Functional Activities, Ea 15 (04/25/22 ) Iron Test (Fe) (04/26/22 10:11) Vitamin B 12 (04/26/22 10:11) Patient Visit (04/26/22 ) Gait Training, Ea 15 Min (04/26/22 ) Exercise Therap, Ea 15 Min (04/26/22 ) Patient Visit (04/26/22 ) Exercise Therap, Ea 15 Min (04/26/22 ) Gait Training, Ea 15 Min (04/26/22 ) Rehab Nursing Orders: Ongoing Assess. of Cognitive Status, Ongoing Assess. of Function Status, Bladder Management, Bladder Scan, Bladder Training, Bowel M anagement, Bowel Training, Disease Management & Educaiton, DVT Prophylaxis, Fall Prevention, Fluid/Electrolyte/Nutrition Mgmt, Infection Prevention, Medication Management & Education, Management of Risks & Complications, Management of Skin Intergrity, Nutrition Management, Pain Management, Patient/Family Support, Wound Management Intensity of Therapy to be met Patient to be seen: Min.3h per day/5 of 7d PT IPOC Problem List: Activity Tolerance, Functional Strength, Safety, Balance, Gait, Transfer, Bed Mobility, ROM Treatment Plan: Continue Plan of Care Bed Mobility, Education, Functional Activity Larry, Functional Strength, Group Therapy, Gait, Safety, Therapeutic Exercise, Transfers Treatment Duration: May 09, 2022 Frequency: At least 5 of 7 days/Wk (IRF) Estimated Hrs Per Day: 1.5 hours per day OT IPOC Problems: Decreased Activ Tolerance, Decreased UE Strength, Impaired Funct Balance, Impaired I ADL's OT Treatment, Training and Edu: Yes Plan of Care: ADL Retraining, Functional Mobility, Group Exercise/Act as Ind, UE Funct Exercise/Act Treatment Duration: May 17, 2022 Frequency: At least 5 of 7 days/Wk (IRF) Estimated Hrs Per Day: 1.[address] IPOC Speech Therapy Treatment Plan: Discontinue ST Treatment Duration: Apr 25, 2022 Frequency: 1 time per week Estimated Hrs Per Day: .5 hour per day Piccoloist/Case Mgmt Piccoloist/Case Managemen: Discharge Planning Dietitian/Story Teller Dietitian/Story Teller to monitor nutritional status and make changes and/or recommendations as needed and work with speech pathology on dietary upgrades as the occur. Physician IPOC Medical Issues being managed closely and that require the 24 hour availability of a physician: Recent sepsis with bacteremia from UTI will require close monitoring to prevent any setback and decompensation and will require close monitoring of IV abx Medical Issues: Bowel/Bladder Function, DVT Prophylaxis, Falls Precautions, F luid/Electrolyte/Nutrition Balance, Infection Protection, Pain Management Brief Synthesis of Preadmission Screen, Post-Admission Evaluation, and Therapy Evaluations: Recent PT OT will require aggressive therapy in order to regain prior PLOF in order to return home Medical Prognosis: Good Anticipated Length of Stay: 7 days JEYSON SHEFFIELD DO Apr 26, 2022 10:33
--- NOTE | 2022-04-26 10:33 | PM&R Progress Note ---
Subjective HPI/CC On Admission Date Seen by Provider: Apr 26, 2022 Carmen Saunders (goes by Mary) is an 81yo F who was transfered to ARU from [facility] after having a UTI caused by E.coli. She was being treated for chronic back pain and reported a h/o poor eating/nutrition. She has been seen for her conditions by her PCP Nadeen Carpenter in [place], and said that the best alleviator of her back pain has been Biofreeze treatments. She was seen with her daughter in the room, both of them requested a medication plan that uses [facility] for the pharmacy, saying they would want a handwritten prescription if necessary. Subjective/Events-last exam 04/26/2022: Pt is having a lot of pain Percocet and Flexeril given Biofreeze will be added IV Rocephin will be continued for the full 14 days Metoprolol will be maintained even though BP is 109 Review of Systems General: Fatigue, Malaise Objective Exam Vital Signs Vital Signs Date Time Temp Pulse Resp B/P (MAP) Pulse Ox O2 Delivery O2 Flow Rate FiO2 04/26/22 21:45 NIV CPAP 04/26/22 21:00 36.7 86 18 113/66 (82) 96 Capillary Refill : General Appearance: No Apparent Distress, WD/WN, Chronically ill, Obese HEENT: PERRL/EOMI, Normal ENT Inspection, Pharynx Normal Neck: Full Range of Motion, Normal Inspection, Non Tender, Supple Respiratory: Chest Non Tender, Lungs Clear, Normal Breath Sounds, No Accessory Muscle Use, No Respiratory Distress Cardiovascular: Regular Rate, Rhythm, No Edema, No Gallop, No JVD, No Murmur, Normal Peripheral Pulses Gastrointestinal: Normal Bowel Sounds, No Organomegaly, No Pulsatile Mass, Non Tender, Soft Back: No CVA Tenderness, Decreased Range of Motion, Vertebral Tenderness Extremity: Normal Capillary Refill, Normal Inspection, Non Tender, No Calf Tenderness, No Pedal Edema Neurologic/Psychiatric: Alert, Oriented x3, No Motor/Sensory Deficits, Normal Mood/Affect Reflexes: 2+ Bicep (R), 2+ Bicep (L), 2+ Tricep (R), 2+ Tricep (L), 2+ Knee (R), 2+ Knee (L), 2+ Ankle (R), 2+ Ankle (L) Skin: Normal Color, Warm/Dry Lymphatic: No Adenopathy Results/Procedures Lab Laboratory Tests 04/26/22 05:55 Patient resulted labs reviewed. FIM Transfers Therapy Code Descriptions/Definitions Functional [place] Measure: 0=Not Assessed/NA 4=Minimal Assistance 1=Total Assistance 5=Supervision or Setup 2=Maximal Assistance 6=Modified [place] 3=Moderate Assistance 7=Complete IndependenceSCALE: Activities may be completed with or without assistive devices. 0-Apzsrltgki-fpwzcfi completes the activity by him/herself with no assistance from a helper. 5-Set-up or Clean-up Assistance-helper sets up or cleans up; patient completes activity. [place] assists only prior to or following the activity. 4-Supervision or Touching Assistance-helper provides verbal cues and/or touching/steadying and/or contact guard assistance as patient completes activity. Assistance may be provided throughout the activity or intermittently. 3-Partial/Moderate Assistance-helper does LESS THAN HALF the effort. [place] lifts, holds or supports trunk or limbs, but provides less than half the effort. 2-Substantial/Maximal Assistance-helper does MORE THAN HALF the effort. [place] lifts or holds trunk or limbs and provides more than half the effort. 4-Xdlnuultl-lnujls does ALL the effort. Patient does none of the effort to complete the activity. Or, the assistance of 2 or more helpers is required for the patient to complete the activity. If activity was not attempted, code reason: 7-Patient Refused. 9-Not Applicable-not attempted and the patient did not perform the activity before the current illness, exacerbation or injury. 10-Not Attempted due to Environmental Limitations-(lack of equipment, weather restraints, etc.). 88-Not Attempted due to Medical Conditions or Safety Concerns. Roll Left to Right (QC): 6 Sit to Lying (QC): 4 Sit to Stand (QC): 4 Chair/Rsd-br-Mchoy Xfer(QC): 4 Car Transfer (QC): 4 Gait Training Does the Patient Walk?: Yes Walk 10 feet (QC): 4 Walk 50 ft with 2 Turns(QC): 4 Walk 150 ft (QC): 4 Walking 10ft/uneven surface-QC: 4 Gait Assistive Device: FWW Wheelchair Training Does the Pt Use a Wheelchair?: No Wheel 50 ft with 2 turns (QC): 9 Wheel 150 ft (QC): 9 Stair Training 1 Step (curb) (QC): 4 4 Steps (QC): 88 12 Steps (QC): 88 Balance Picking up an Object (QC): 4 (CGA using a shake cutter) ADL-Treatment Eating (QC): 6 Oral Hygiene (QC): 6 Shower/Bathe Self (QC): 5 Upper Body Dressing (QC): 5 Lower Body Dressing (QC): 5 On/Off Footwear (QC): 5 (slip on shoes. Pt declined socks due to back pain.) Toileting Hygiene (QC): 6 Toilet Transfer (QC): 6 Assessment/Plan Assessment and Plan Assess & Plan/Chief Complaint Assessment: Debility E coli bacteremia maintained on Rocephin HADLEY on CPAP HTN HLP AF UTI OA Chronic pain Plan: Pain control IV abx Monitor closely BM regimen PT OT 04/26/2022: Supportive care Rocephin (1) Debility JEYSON SHEFFIELD DO Apr 26, 2022 10:33
--- NOTE | 2022-04-26 11:00 | Physical Therapy Daily Note ---
PT Daily Note-Current Subjective Pt found seated upon entry. Agreed to PT. Does not rate or report any change in pain. Pain Numeric Pain Scale: 0-No Pain Section J - Health Conditions 1. Rarely or not at all 2. Occasionally 3. Frequently 4. Almost constantly 8. Unable to answer Pain Effect on Sleep: 4 Pain Interference with Therapy: 4 Pain Interference w/Day-to-Day: 4 Mental Status Patient Orientation: Person, Time, Situation Transfers SCALE: Activities may be completed with or without assistive devices. 4-Hoyyujomif-fhkqbja completes the activity by him/herself with no assistance from a helper. 5-Set-up or Clean-up Assistance-helper sets up or cleans up; patient completes activity. [place] assists only prior to or following the activity. 4-Supervision or Touching Assistance-helper provides verbal cues and/or touching/steadying and/or contact guard assistance as patient completes activity. Assistance may be provided throughout the activity or intermittently. 3-Partial/Moderate Assistance-helper does LESS THAN HALF the effort. [place] lift s, holds or supports trunk or limbs, but provides less than half the effort. 2-Substantial/Maximal Assistance-helper does MORE THAN HALF the effort. [place] lifts or holds trunk or limbs and provides more than half the effort. 5-Pcfhhnten-ugfqxy does ALL the effort. Patient does none of the effort to complete the activity. Or, the assistance of 2 or more helpers is required for the patient to complete the activity. If activity was not attempted, code reason: 7-Patient Refused. 9-Not Applicable-not attempted and the patient did not perform the activity before the current illness, exacerbation or injury. 10-Not Attempted due to Environmental Limitations-(lack of equipment, weather restraints, etc.). 88-Not Attempted due to Medical Conditions or Safety Concerns. Sit to Stand (QC): 4 Pt CGA /c sit<->stand trfs. Gait Training Does the Patient Walk?: Yes Distance: 200, 200, 200 Walk 10 feet (QC): 4 Walk 50 ft with 2 Turns(QC): 4 Walk 150 ft (QC): 4 Gait Persons Needed: 1 Gait Assistive Device: FWW Pt CGA /c gait training. Required standing RBs. Amb. 600ft total Wheelchair Training Does the Pt Use a Wheelchair?: No Exercises Seated Therapy Exercises: Ankle pumps, Long arc quads, Hip flexion, Hip abd/add Seated Reps: 20 Pt tolerated exercises well /c no report of increase pain. Assessment Current Status: Good Progress Pt tolerated Tx well and did not report any changes in pain. Continue to progress pt as tolerated per POC. PT Short Term Goals Short Term Goals Time Frame: May 02, 2022 Sit to stand: 4 (SBA) Chair/ilo-lp-jkwry transfer: 4 (SBA) Walk 10 feet: 4 (SBA) Walk 50 feet with two turns: 4 (SBA) Walk 150 feet: 4 (SBA) PT Halfway Goals Halfway Goals PT Seasonal Clerk Goals Time Frame: May 09, 2022 Roll Left & Right (QC): 6 Sit to Lying (QC): 6 Lying-Sitting on Side/Bed(QC): 6 Sit to Stand (QC): 6 Chair/Xca-od-Tuhfq Xfer(QC): 6 Toilet Transfer (QC): 6 Car Transfer (QC): 6 Does the Patient Walk: Yes Walk 10 feet (QC): 6 Walk 50ft with 2 Turns (QC): 6 Walk 150 ft (QC): 6 Walking 10ft on Uneven Surface: 6 1 Step (curb) (QC): 4 (SBA) 4 Steps (QC): 4 (SBA) 12 Steps (QC): 88 Picking up an Object (QC): 6 (using regional psychiatric director) Wheel 50 feet with 2 turns (QC: 9 Wheel 150 feet: 9 PT Plan Treatment/Plan Treatment Plan: Continue Plan of Care Treatment Plan: Bed Mobility, Education, Functional Activity Larry, Functional Strength, Group Therapy, Gait, Safety, Therapeutic Exercise, Transfers Treatment Duration: May 09, 2022 Frequency: At least 5 of 7 days/Wk (IRF) Estimated Hrs Per Day: 1.5 hours per day Patient and/or Family Agrees t: Yes Time Time In: 0800 Time Out: 0900 DATE: Apr 26, 2022 Total Billed Treatment Time: 60 Total Billed Treatment 1 visit GT 2x EX 2x MIGUEL MEIER SUPERVISOR FISH BAIT PROCESSING Apr 26, 2022 11:00
--- NOTE | 2022-04-26 13:39 | Physical Therapy Daily Note ---
PT Daily Note-Current Subjective Pt found sitting upon entry. Agreed to PT. Reports back pain 9/10. Pain Numeric Pain Scale: 9 Section J - Health Conditions 1. Rarely or not at all 2. Occasionally 3. Frequently 4. Almost constantly 8. Unable to answer Pain Effect on Sleep: 4 Pain Interference with Therapy: 4 Pain Interference w/Day-to-Day: 4 Mental Status Patient Orientation: Person, Time, Situation Transfers SCALE: Activities may be completed with or without assistive devices. 0-Sceqzoxzgz-aruhtra completes the activity by him/herself with no assistance from a helper. 5-Set-up or Clean-up Assistance-helper sets up or cleans up; patient completes activity. [place] assists only prior to or following the activity. 4-Supervision or Touching Assistance-helper provides verbal cues and/or touching/steadying and/or contact guard assistance as patient completes activity. Assistance may be provided throughout the activity or intermittently. 3-Partial/Moderate Assistance-helper does LESS THAN HALF the effort. [place] lifts, holds or supports trunk or limbs, but provides less than half the effort. 2-Substantial/Maximal Assistance-helper does MORE THAN HALF the effort. [place] lifts or holds trunk or limbs and provides more than half the effort. 5-Tivqegiuy-hqofqb does ALL the effort. Patient does none of the effort to complete the activity. Or, the assistance of 2 or more helpers is required for the patient to complete the activity. If activity was not attempted, code reason: 7-Patient Refused. 9-Not Applicable-not attempted and the patient did not perform the activity before the current illness, exacerbation or injury. 10-Not Attempted due to Environmental Limitations-(lack of equipment, weather restraints, etc.). 88-Not Attempted due to Medical Conditions or Safety Concerns. Sit to Stand (QC): 4 Pt SBA /c sit <->stand trfs. Gait Training Does the Patient Walk?: Yes Distance: 400, 200, 200 Walk 10 feet (QC): 4 Walk 50 ft with 2 Turns(QC): 4 Walk 150 ft (QC): 4 Gait Persons Needed: 1 Gait Assistive Device: FWW Pt SBA /c gait training. Amb. 800ft total. Wheelchair Training Does the Pt Use a Wheelchair?: No Exercises Seated Therapy Exercises: Ankle pumps, Long arc quads, Hip flexion Seated Reps: 15 Pt completed exercises /c no report of increase pain. Assessment Current Status: Fair Progress Pt continues to report back pain. Requires VCs for foot clearance during gait. Continue to progress pt as tolerated per POC. PT Short Term Goals Short Term Goals Time Frame: May 02, 2022 Sit to stand: 4 (SBA) Chair/atq-cm-tzbje transfer: 4 (SBA) Walk 10 feet: 4 (SBA) Walk 50 feet with two turns: 4 (SBA) Walk 150 feet: 4 (SBA) PT Halfway Goals Stick Feeder Goals PT Stick Feeder Goals Time Frame: May 09, 2022 Roll Left & Right (QC): 6 Sit to Lying (QC): 6 Lying-Sitting on Side/Bed(QC): 6 Sit to Stand (QC): 6 Chair/Aez-wz-Uaygt Xfer(QC): 6 Toilet Transfer (QC): 6 Car Transfer (QC): 6 Does the Patient Walk: Yes Walk 10 feet (QC): 6 Walk 50ft with 2 Turns (QC): 6 Walk 150 ft (QC): 6 Walking 10ft on Uneven Surface: 6 1 Step (curb) (QC): 4 (SBA) 4 Steps (QC): 4 (SBA) 12 Steps (QC): 88 Picking up an Object (QC): 6 (using helminthology teacher) Wheel 50 feet with 2 turns (QC: 9 Wheel 150 feet: 9 PT Plan Treatment/Plan Treatment Plan: Continue Plan of Care Treatment Plan: Bed Mobility, Education, Functional Activity Larry, Functional Strength, Group Therapy, Gait, Safety, Therapeutic Exercise, Transfers Treatment Duration: May 09, 2022 Frequency: At least 5 of 7 days/Wk (IRF) Estimated Hrs Per Day: 1.5 hours per day Patient and/or Family Agrees t: Yes Time Time In: 1300 Time Out: 1330 DATE: Apr 26, 2022 Total Billed Treatment Time: 30 Total Billed Treatment 1 visit GT 1x EX 1x MAJOR,MIGUEL METAPHYSICIAN Apr 26, 2022 13:39
--- NOTE | 2022-04-26 13:40 | Progress Note ---
DAVID WARD 04/26/22 1340: Progress Note S: Carmen Saunders (goes by Mary) is an 81yo F who was transfered to [facility] from [facility] after having a UTI caused by E.coli. She was being treated for chronic back pain and reported a h/o poor eating/nutrition. She has been seen for her conditions by her PCP Nadeen Carpenter in [place], and said that the best alleviator of her back pain has been Biofreeze treatments which her daughter was said to be bringing in today 04/26/22. She was seen with her daughter in the room. She is acclimating well to her treatments. She had low blood pressure today and was behaving a little more lethargic, pain is being managed well. O: V/S: T(36.5) HR(80) RR(20) BP(106/59) SpO2(96 RA) Exam: General Appearance: No Apparent Distress, WD/WN, Obese Neck: Full Range of Motion, Normal Inspection, Non Tender, Supple, Respiratory: Chest Non Tender, Lungs Clear, Normal Breath Sounds, No Accessory Muscle Use, No Respiratory Distress Cardiovascular: Regular Rate, Rhythm, No Edema, No Gallop, No JVD, No Murmur, Normal Peripheral Pulses Gastrointestinal: Normal Bowel Sounds, No Organomegaly, No Pulsatile Mass, Non Tender, Soft Back: Normal Inspection, denies tenderness, Decreased Range of Motion Extremity: Normal Capillary Refill, Normal Inspection, Non Tender, No Calf Tenderness, No Pedal Edema Neurologic/Psychiatric: Alert, Oriented x3, No Motor/Sensory Deficits, Normal Mood/Affect, Abnormal Gait, Motor Weakness (generalized) Skin: Normal Color, Warm/Dry Lymphatic: No Adenopathy Labs: labs shown signs of anemia A: Debility Poor nutrition Hypotension Pain Chronic anemia P: Aggressive pain management OT PT given metoprolol for low BP meal plan Check Ferritin/B12 levels OPAL SHEFFIELD DO 04/27/22 9241: Supervisory-Addendum Brief Verification & Attestation Participated in pt care: history, MDM, physical Personally performed: exam, history, MDM, supervision of care Care discussed with: Medical Student Procedures: n/a Results interpretation: Verified all documentation Verification and Attestation of Medical Student E/M Service A medical student performed and documented this service in my presence. I reviewed and verified all information documented by the medical student and made modifications to such information, when appropriate. I personally performed the physical exam and medical decision making. Opal Sheffield, Apr 27, 2022,06:27 DAVID WARD Apr 26, 2022 13:40 OPAL SHEFFIELD DO Apr 27, 2022 06:27
[2022-04-26 21:00] VITALS: BP 113/66
[2022-04-27] MEDS: oxyCODONE/APAP 5/325MG (PERCOCET 5) TABLET PO PRN ×4 (02:13→19:46)
[2022-04-27] MEDS: LEVOTHYROXINE 100 MCG (LEVOTHROID) TAB PO SCH (06:24)
[2022-04-27] MEDS: CATHETER FLUSH 10 ML SYR IVP SCH ×3 (06:24→20:01)
--- NOTE | 2022-04-27 06:50 | PM&R Progress Note ---
Subjective HPI/CC On Admission Date Seen by Provider: Apr 27, 2022 Time Seen by Provider: 12:30 Carmen Saunders (goes by Mary) is an 81yo F who was transfered to [facility] from [facility] after having a UTI caused by E.coli. She was being treated for chronic back pain and reported a h/o poor eating/nutrition. She has been seen for her conditions by her PCP Nadeen Carpenter in [place], and said that the best alleviator of her back pain has been Biofreeze treatments. She was seen with her daughter in the room, both of them requested a medication plan that uses [facility] for the pharmacy, saying they would want a handwritten prescription if necessary. Subjective/Events-last exam 04/27/2022: Still complaining of a lot of back pain but it is muscle skeletal in nature IV antibiotics continue Supportive care we will continue K pad will be ordered Patient appears to be very tired and unsure if she will totally recover from this illness 04/26/2022: Pt is having a lot of pain Percocet and Flexeril given Biofreeze will be added IV Rocephin will be continued for the full 14 days Metoprolol will be maintained even though BP is 109 Review of Systems General: Fatigue, Malaise Musculoskeletal: back pain Objective Exam Vital Signs Vital Signs Date Time Temp Pulse Resp B/P (MAP) Pulse Ox O2 Delivery O2 Flow Rate FiO2 04/27/22 20:30 Room Air 04/27/22 19:26 36.9 80 20 109/54 (72) 98 Capillary Refill : General Appearance: No Apparent Distress, WD/WN, Chronically ill, Obese HEENT: PERRL/EOMI, Normal ENT Inspection, Pharynx Normal Neck: Full Range of Motion, Normal Inspection, Non Tender, Supple Respiratory: Chest Non Tender, Lungs Clear, Normal Breath Sounds, No Accessory Muscle Use, No Respiratory Distress Cardiovascular: Regular Rate, Rhythm, No Edema, No Gallop, No JVD, No Murmur, Normal Peripheral Pulses Gastrointestinal: Normal Bowel Sounds, No Organomegaly, No Pulsatile Mass, Non Tender, Soft Back: No CVA Tenderness, Decreased Range of Motion, Vertebral Tenderness Extremity: Normal Capillary Refill, Normal Inspection, Non Tender, No Calf Tenderness, No Pedal Edema Neurologic/Psychiatric: Alert, Oriented x3, No Motor/Sensory Deficits, Normal Mood/Affect Reflexes: 2+ Bicep (R), 2+ Bicep (L), 2+ Tricep (R), 2+ Tricep (L), 2+ Knee (R), 2+ Knee (L), 2+ Ankle (R), 2+ Ankle (L) Skin: Normal Color, Warm/Dry Lymphatic: No Adenopathy Results/Procedures Lab Patient resulted labs reviewed. FIM Transfers Therapy Code Descriptions/Definitions Functional [place] Measure: 0=Not Assessed/NA 4=Minimal Assistance 1=Total Assistance 5=Supervision or Setup 2=Maximal Assistance 6=Modified [place] 3=Moderate Assistance 7=Complete IndependenceSCALE: Activities may be completed with or without assistive devices. 4-Tkltawhoqq-adfvrnl completes the activity by him/herself with no assistance from a helper. 5-Set-up or Clean-up Assistance-helper sets up or cleans up; patient completes activity. [place] assists only prior to or following the activity. 4-Supervision or Touching Assistance-helper provides verbal cues and/or touching/steadying and/or contact guard assistance as patient completes activity. Assistance may be provided throughout the activity or intermittently. 3-Partial/Moderate Assistance-helper does LESS THAN HALF the effort. [place] lifts, holds or supports trunk or limbs, but provides less than half the effort. 2-Substantial/Maximal Assistance-helper does MORE THAN HALF the effort. [place] lifts or holds trunk or limbs and provides more than half the effort. 9-Umtqkzaud-njyebl does ALL the effort. Patient does none of the effort to complete the activity. Or, the assistance of 2 or more helpers is required for the patient to complete the activity. If activity was not attempted, code reason: 7-Patient Refused. 9-Not Applicable-not attempted and the patient did not perform the activity before the current illness, exacerbation or injury. 10-Not Attempted due to Environmental Limitations-(lack of equipment, weather restraints, etc.). 88-Not Attempted due to Medical Conditions or Safety Concerns. Roll Left to Right (QC): 6 Sit to Lying (QC): 4 Sit to Stand (QC): 4 Chair/Qqn-dr-Saojp Xfer(QC): 4 Car Transfer (QC): 4 Gait Training Does the Patient Walk?: Yes Distance: 400, 200, 200 Walk 10 feet (QC): 4 Walk 50 ft with 2 Turns(QC): 4 Walk 150 ft (QC): 4 Walking 10ft/uneven surface-QC: 4 Gait Persons Needed: 1 Gait Assistive Device: FWW Wheelchair Training Does the Pt Use a Wheelchair?: No Wheel 50 ft with 2 turns (QC): 9 Wheel 150 ft (QC): 9 Stair Training 1 Step (curb) (QC): 4 4 Steps (QC): 88 12 Steps (QC): 88 Balance Picking up an Object (QC): 4 (CGA using a knitting machine operator automatic) ADL-Treatment Eating (QC): 6 Oral Hygiene (QC): 6 Shower/Bathe Self (QC): 5 Upper Body Dressing (QC): 5 Lower Body Dressing (QC): 5 On/Off Footwear (QC): 5 (slip on shoes. Pt declined socks due to back pain.) Toileting Hygiene (QC): 6 Toilet Transfer (QC): 6 Assessment/Plan Assessment and Plan Assess & Plan/Chief Complaint Assessment: Debility E coli bacteremia maintained on Rocephin HADLEY on CPAP HTN HLP AF UTI OA Chronic pain Plan: Pain control IV abx Monitor closely BM regimen PT OT 04/26/2022: Supportive care Rocephin 04/27/2022: Pain control Try to resolve apathy (1) Debility JYESON SHEFFIELD DO Apr 27, 2022 06:50
[2022-04-27] MEDS: SENNA W/DOCUSATE (SENOKOT S) TABLET PO SCH ×2 (09:24→19:46)
[2022-04-27] MEDS: cefTRIAXone 1 GM/50 ML (PRE-MIX) IV SCH (09:24)
[2022-04-27] MEDS: CYANOCOBALAMIN 1,000 MCG (VITAMIN B-12) TABLET PO SCH (09:24)
[2022-04-27] MEDS: polyethylene glycoL POWDER 17 GM (MIRALAX) PACK PO SCH ×2 (09:24→20:01)
[2022-04-27] MEDS: RIVAROXABAN 20 MG TABLET (XARELTO) PO SCH (09:24)
[2022-04-27] MEDS: meTOproloL SUCCINATE 50 MG (TOPROL XL) TAB PO SCH (09:24)
[2022-04-27] MEDS: DOCUSATE SODIUM 100 MG (COLACE) CAP PO SCH ×2 (09:24→19:46)
[2022-04-27 09:50] VITALS: BP 113/60
--- NOTE | 2022-04-27 11:04 | Physical Therapy Daily Note ---
PT Daily Note-Current Subjective Pt in bed upon arrival and agrees to PT. Reports her back is hurting quite a bit today. Pain Numeric Pain Scale: 9 Location Body Site: Back Section J - Health Conditions 1. Rarely or not at all 2. Occasionally 3. Frequently 4. Almost constantly 8. Unable to answer Pain Effect on Sleep: 4 Pain Interference with Therapy: 4 Pain Interference w/Day-to-Day: 4 Mental Status Patient Orientation: Person, Place, Time, Situation Transfers SCALE: Activities may be completed with or without assistive devices. 6-Anftkgjjew-rvtsndh completes the activity by him/herself with no assistance from a helper. 5-Set-up or Clean-up Assistance-helper sets up or cleans up; patient completes activity. [place] assists only prior to or following the activity. 4-Supervision or Touching Assistance-helper provides verbal cues and/or touching/steadying and/or contact guard assistance as patient completes activity. Assistance may be provided throughout the activity or intermittently. 3-Partial/Moderate Assistance-helper does LESS THAN HALF the effort. [place] lifts, holds or supports trunk or limbs, but provides less than half the effort. 2-Substantial/Maximal Assistance-helper does MORE THAN HALF the effort. [place] lifts or holds trunk or limbs and provides more than half the effort. 3-Cmfupscur-ezzykw does ALL the effort. Patient does none of the effort to complete the activity. Or, the assistance of 2 or more helpers is required for the patient to complete the activity. If activity was not attempted, code reason: 7-Patient Refused. 9-Not Applicable-not attempted and the patient did not perform the activity before the current illness, exacerbation or injury. 10-Not Attempted due to Environmental Limitations-(lack of equipment, weather restraints, etc.). 88-Not Attempted due to Medical Conditions or Safety Concerns. Sit to Stand (QC): 4 Gait Training Does the Patient Walk?: Yes Distance: 300' Walk 10 feet (QC): 5 Walk 50 ft with 2 Turns(QC): 4 Walk 150 ft (QC): 4 Gait Persons Needed: 1 Gait Assistive Device: FWW slow, antalgic Treatments Pt TFs from bed and amb into BR. Uses BR independently and then amb into ma and TFs back to recliner post treatment w/ call light nearby and all needs met. Assessment Current Status: Good Progress The further the pt ambs today the less antalgic her gait becomes but fatigues towards end of treatment. PT Short Term Goals Short Term Goals Time Frame: May 02, 2022 Sit to stand: 4 (SBA) Chair/sbs-nx-tnmnf transfer: 4 (SBA) Walk 10 feet: 4 (SBA) Walk 50 feet with two turns: 4 (SBA) Walk 150 feet: 4 (SBA) PT Long-Term Goals Long-Term Goals PT Long-Term Goals Time Frame: May 09, 2022 Roll Left & Right (QC): 6 Sit to Lying (QC): 6 Lying-Sitting on Side/Bed(QC): 6 Sit to Stand (QC): 6 Chair/Pjp-kj-Rcres Xfer(QC): 6 Toilet Transfer (QC): 6 Car Transfer (QC): 6 Does the Patient Walk: Yes Walk 10 feet (QC): 6 Walk 50ft with 2 Turns (QC): 6 Walk 150 ft (QC): 6 Walking 10ft on Uneven Surface: 6 1 Step (curb) (QC): 4 (SBA) 4 Steps (QC): 4 (SBA) 12 Steps (QC): 88 Picking up an Object (QC): 6 (using tellers supervisor) Wheel 50 feet with 2 turns (QC: 9 Wheel 150 feet: 9 PT Plan Problem List Problem List: Activity Tolerance, Functional Strength Treatment/Plan Treatment Plan: Continue Plan of Care Treatment Plan: Bed Mobility, Education, Functional Activity Larry, Functional Strength, Group Therapy, Gait, Safety, Therapeutic Exercise, Transfers Treatment Duration: May 09, 2022 Frequency: At least 5 of 7 days/Wk (IRF) Estimated Hrs Per Day: 1.5 hours per day Patient and/or Family Agrees t: Yes Safety Risks/Education Patient Education: Gait Training, Transfer Techniques Teaching Recipient: Patient Teaching Methods: Discussion Response to Teaching: Return Demonstration Time Time In: 814 Time Out: 08 DATE: Apr 27, 2022 Total Billed Treatment Time: 20 Total Billed Treatment 1, Gt JACKELYN CHAUDHARY SENIOR ADMINISTRATOR SUPPORT Apr 27, 2022 11:04
[2022-04-27] MEDS: IRON SUCROSE 200 MG/10 ML (VENOFER) VIAL IV SCH (13:18)
[2022-04-27 19:26] VITALS: BP 109/54
[2022-04-28] MEDS: oxyCODONE/APAP 5/325MG (PERCOCET 5) TABLET PO PRN ×4 (03:07→20:10)
[2022-04-28] MEDS: LEVOTHYROXINE 100 MCG (LEVOTHROID) TAB PO SCH (06:04)
[2022-04-28] MEDS: CATHETER FLUSH 10 ML SYR IVP SCH ×3 (06:04→20:14)
--- NOTE | 2022-04-28 06:18 | PM&R Progress Note ---
Subjective HPI/CC On Admission Date Seen by Provider: Apr 28, 2022 Time Seen by Provider: 13:00 Carmen Saunders (goes by Mary) is an 81yo F who was transfered to [facility] from [facility] after having a UTI caused by E.coli. She was being treated for chronic back pain and reported a h/o poor eating/nutrition. She has been seen for her conditions by her PCP Nadeen Carpenter in [place], and said that the best alleviator of her back pain has been Biofreeze treatments. She was seen with her daughter in the room, both of them requested a medication plan that uses [facility] for the pharmacy, saying they would want a handwritten prescription if necessary. Subjective/Events-last exam 04/28/2022: No major issues Back pain is still presents Bilateral lower back is where pain is will get xray tomorrow 04/27/2022: Still complaining of a lot of back pain but it is muscle skeletal in nature IV antibiotics continue Supportive care we will continue K pad will be ordered Patient appears to be very tired and unsure if she will totally recover from this illness 04/26/2022: Pt is having a lot of pain Percocet and Flexeril given Biofreeze will be added IV Rocephin will be continued for the full 14 days Metoprolol will be maintained even though BP is 109 Review of Systems General: Fatigue, Malaise Musculoskeletal: back pain Objective Exam Vital Signs Vital Signs Date Time Temp Pulse Resp B/P (MAP) Pulse Ox O2 Delivery O2 Flow Rate FiO2 04/28/22 09:03 98 Room Air 04/28/22 07:30 36.6 52 20 138/76 (96) Capillary Refill : General Appearance: No Apparent Distress, WD/WN, Chronically ill, Obese HEENT: PERRL/EOMI, Normal ENT Inspection, Pharynx Normal Neck: Full Range of Motion, Normal Inspection, Non Tender, Supple Respiratory: Chest Non Tender, Lungs Clear, Normal Breath Sounds, No Accessory Muscle Use, No Respiratory Distress Cardiovascular: Regular Rate, Rhythm, No Edema, No Gallop, No JVD, No Murmur, Normal Peripheral Pulses Gastrointestinal: Normal Bowel Sounds, No Organomegaly, No Pulsatile Mass, Non Tender, Soft Back: No CVA Tenderness, Decreased Range of Motion, Vertebral Tenderness Extremity: Normal Capillary Refill, Normal Inspection, Non Tender, No Calf Tenderness, No Pedal Edema Neurologic/Psychiatric: Alert, Oriented x3, No Motor/Sensory Deficits, Normal Mood/Affect Reflexes: 2+ Bicep (R), 2+ Bicep (L), 2+ Tricep (R), 2+ Tricep (L), 2+ Knee (R), 2+ Knee (L), 2+ Ankle (R), 2+ Ankle (L) Skin: Normal Color, Warm/Dry Lymphatic: No Adenopathy Results/Procedures Lab Patient resulted labs reviewed. FIM Transfers Therapy Code Descriptions/Definitions Functional [place] Measure: 0=Not Assessed/NA 4=Minimal Assistance 1=Total Assistance 5=Supervision or Setup 2=Maximal Assistance 6=Modified [place] 3=Moderate Assistance 7=Complete IndependenceSCALE: Activities may be completed with or without assistive devices. 7-Bczhtobtqx-rthffeg completes the activity by him/herself with no assistance from a helper. 5-Set-up or Clean-up Assistance-helper sets up or cleans up; patient completes activity. [place] assists only prior to or following the activity. 4-Supervision or Touching Assistance-helper provides verbal cues and/or touching/steadying and/or contact guard assistance as patient completes activity. Assistance may be provided throughout the activity or intermittently. 3-Partial/Moderate Assistance-helper does LESS THAN HALF the effort. [place] lifts, holds or supports trunk or limbs, but provides less than half the effort. 2-Substantial/Maximal Assistance-helper does MORE THAN HALF the effort. [place] lifts or holds trunk or limbs and provides more than half the effort. 6-Tbkvdvyje-fmmzpo does ALL the effort. Patient does none of the effort to compl ete the activity. Or, the assistance of 2 or more helpers is required for the patient to complete the activity. If activity was not attempted, code reason: 7-Patient Refused. 9-Not Applicable-not attempted and the patient did not perform the activity before the current illness, exacerbation or injury. 10-Not Attempted due to Environmental Limitations-(lack of equipment, weather restraints, etc.). 88-Not Attempted due to Medical Conditions or Safety Concerns. Roll Left to Right (QC): 6 Sit to Lying (QC): 4 Sit to Stand (QC): 4 Chair/Emt-nu-Jkohv Xfer(QC): 4 Car Transfer (QC): 4 Gait Training Does the Patient Walk?: Yes Distance: 300' Walk 10 feet (QC): 5 Walk 50 ft with 2 Turns(QC): 4 Walk 150 ft (QC): 4 Walking 10ft/uneven surface-QC: 4 Gait Persons Needed: 1 Gait Assistive Device: FWW Wheelchair Training Does the Pt Use a Wheelchair?: No Wheel 50 ft with 2 turns (QC): 9 Wheel 150 ft (QC): 9 Stair Training 1 Step (curb) (QC): 4 4 Steps (QC): 88 12 Steps (QC): 88 Balance Picking up an Object (QC): 4 (CGA using a insurance salesman) ADL-Treatment Eating (QC): 6 Oral Hygiene (QC): 6 Shower/Bathe Self (QC): 5 Upper Body Dressing (QC): 5 Lower Body Dressing (QC): 5 On/Off Footwear (QC): 5 (slip on shoes. Pt declined socks due to back pain.) Toileting Hygiene (QC): 6 Toilet Transfer (QC): 6 Assessment/Plan Assessment and Plan Assess & Plan/Chief Complaint Assessment: Debility E coli bacteremia maintained on Rocephin HADLEY on CPAP HTN HLP AF UTI OA Chronic pain Plan: Pain control IV abx Monitor closely BM regimen PT OT 04/26/2022: Supportive care Rocephin 04/27/2022: Pain control Try to resolve apathy 04/28/2022: Xray tomorrow Monitor pain Kpad (1) Debility JEYSON SHEFFIELD DO Apr 28, 2022 06:18
[2022-04-28 07:30] VITALS: BP 138/76
[2022-04-28] MEDS: meTOproloL SUCCINATE 50 MG (TOPROL XL) TAB PO SCH (08:08)
[2022-04-28] MEDS: SENNA W/DOCUSATE (SENOKOT S) TABLET PO SCH ×2 (08:08→20:10)
[2022-04-28] MEDS: cefTRIAXone 1 GM/50 ML (PRE-MIX) IV SCH (08:08)
[2022-04-28] MEDS: CYANOCOBALAMIN 1,000 MCG (VITAMIN B-12) TABLET PO SCH (08:08)
[2022-04-28] MEDS: polyethylene glycoL POWDER 17 GM (MIRALAX) PACK PO SCH ×2 (08:08→20:14)
[2022-04-28] MEDS: DOCUSATE SODIUM 100 MG (COLACE) CAP PO SCH ×2 (08:08→20:10)
[2022-04-28] MEDS: RIVAROXABAN 20 MG TABLET (XARELTO) PO SCH (08:09)
[2022-04-28 19:57] VITALS: BP 106/70
[2022-04-29] MEDS: oxyCODONE/APAP 5/325MG (PERCOCET 5) TABLET PO PRN ×4 (01:17→20:11)
--- NOTE | 2022-04-29 05:22 | PM&R Progress Note ---
Subjective HPI/CC On Admission Date Seen by Provider: Apr 29, 2022 Time Seen by Provider: 08:30 Carmen Saunders (goes by Mary) is an 81yo F who was transfered to [facility] from [facility] after having a UTI caused by E.coli. She was being treated for chronic back pain and reported a h/o poor eating/nutrition. She has been seen for her conditions by her PCP Nadeen Carpenter in [place], and said that the best alleviator of her back pain has been Biofreeze treatments. She was seen with her daughter in the room, both of them requested a medication plan that uses [facility] for the pharmacy, saying they would want a handwritten prescription if necessary. Subjective/Events-last exam 04/29/2022: Doing well Back pain is an issue Xray reveals severe DJD 04/28/2022: No major issues Back pain is still presents Bilateral lower back is where pain is will get xray tomorrow 04/27/2022: Still complaining of a lot of back pain but it is muscle skeletal in nature IV antibiotics continue Supportive care we will continue K pad will be ordered Patient appears to be very tired and unsure if she will totally recover from this illness 04/26/2022: Pt is having a lot of pain Percocet and Flexeril given Biofreeze will be added IV Rocephin will be continued for the full 14 days Metoprolol will be maintained even though BP is 109 Review of Systems General: Fatigue, Malaise Musculoskeletal: back pain Objective Exam Vital Signs Vital Signs Date Time Temp Pulse Resp B/P (MAP) Pulse Ox O2 Delivery O2 Flow Rate FiO2 04/29/22 20:10 36.4 74 20 124/55 (78) 94 NIV CPAP Capillary Refill : General Appearance: No Apparent Distress, WD/WN, Chronically ill, Obese HEENT: PERRL/EOMI, Normal ENT Inspection, Pharynx Normal Neck: Full Range of Motion, Normal Inspection, Non Tender, Supple Respiratory: Chest Non Tender, Lungs Clear, Normal Breath Sounds, No Accessory Muscle Use, No Respiratory Distress Cardiovascular: Regular Rate, Rhythm, No Edema, No Gallop, No JVD, No Murmur, Normal Peripheral Pulses Gastrointestinal: Normal Bowel Sounds, No Organomegaly, No Pulsatile Mass, Non Tender, Soft Back: No CVA Tenderness, Decreased Range of Motion, Vertebral Tenderness Extremity: Normal Capillary Refill, Normal Inspection, Non Tender, No Calf Tenderness, No Pedal Edema Neurologic/Psychiatric: Alert, Oriented x3, No Motor/Sensory Deficits, Normal Mood/Affect Reflexes: 2+ Bicep (R), 2+ Bicep (L), 2+ Tricep (R), 2+ Tricep (L), 2+ Knee (R), 2+ Knee (L), 2+ Ankle (R), 2+ Ankle (L) Skin: Normal Color, Warm/Dry Lymphatic: No Adenopathy Results/Procedures Lab Laboratory Tests 04/29/22 05:40 Patient resulted labs reviewed. FIM Transfers Therapy Code Descriptions/Definitions Functional [place] Measure: 0=Not Assessed/NA 4=Minimal Assistance 1=Total Assistance 5=Supervision or Setup 2=Maximal Assistance 6=Modified [place] 3=Moderate Assistance 7=Complete IndependenceSCALE: Activities may be completed with or without assistive devices. 2-Xaigwjdhnw-cnvdycx completes the activity by him/herself with no assistance from a helper. 5-Set-up or Clean-up Assistance-helper sets up or cleans up; patient completes activity. [place] assists only prior to or following the activity. 4-Supervision or Touching Assistance-helper provides verbal cues and/or touc karma/steadying and/or contact guard assistance as patient completes activity. Assistance may be provided throughout the activity or intermittently. 3-Partial/Moderate Assistance-helper does LESS THAN HALF the effort. [place] lifts, holds or supports trunk or limbs, but provides less than half the effort. 2-Substantial/Maximal Assistance-helper does MORE THAN HALF the effort. [place] lifts or holds trunk or limbs and provides more than half the effort. 0-Vquvhvysf-hteuog does ALL the effort. Patient does none of the effort to complete the activity. Or, the assistance of 2 or more helpers is required for the patient to complete the activity. If activity was not attempted, code reason: 7-Patient Refused. 9-Not Applicable-not attempted and the patient did not perform the activity be fore the current illness, exacerbation or injury. 10-Not Attempted due to Environmental Limitations-(lack of equipment, weather restraints, etc.). 88-Not Attempted due to Medical Conditions or Safety Concerns. Roll Left to Right (QC): 6 Sit to Lying (QC): 4 Sit to Stand (QC): 4 Chair/Cly-eg-Ykzop Xfer(QC): 4 Car Transfer (QC): 4 Gait Training Does the Patient Walk?: Yes Distance: 300' Walk 10 feet (QC): 5 Walk 50 ft with 2 Turns(QC): 4 Walk 150 ft (QC): 4 Walking 10ft/uneven surface-QC: 4 Gait Persons Needed: 1 Gait Assistive Device: FWW Wheelchair Training Does the Pt Use a Wheelchair?: No Wheel 50 ft with 2 turns (QC): 9 Wheel 150 ft (QC): 9 Stair Training 1 Step (curb) (QC): 4 4 Steps (QC): 88 12 Steps (QC): 88 Balance Picking up an Object (QC): 4 (CGA using a supervisor epoxy fabrication) ADL-Treatment Eating (QC): 6 Oral Hygiene (QC): 6 Shower/Bathe Self (QC): 5 Upper Body Dressing (QC): 5 Lower Body Dressing (QC): 5 On/Off Footwear (QC): 5 (slip on shoes. Pt declined socks due to back pain.) Toileting Hygiene (QC): 6 Toilet Transfer (QC): 6 Assessment/Plan Assessment and Plan Assess & Plan/Chief Complaint Assessment: Debility E coli bacteremia maintained on Rocephin HADLEY on CPAP HTN HLP AF UTI OA Chronic pain Plan: Pain control IV abx Monitor closely BM regimen PT OT 04/26/2022: Supportive care Rocephin 04/27/2022: Pain control Try to resolve apathy 04/28/2022: Xray tomorrow Monitor pain Kpad 04/29/2022: Xray reviewed (1) Debility JEYSON SHEFFIELD DO Apr 29, 2022 05:22
[2022-04-29] MEDS: LEVOTHYROXINE 100 MCG (LEVOTHROID) TAB PO SCH (05:43)
[2022-04-29] MEDS: CATHETER FLUSH 10 ML SYR IVP SCH ×3 (06:01→22:25)
[2022-04-29 06:14] LABS: BASOPHILS # (AUTO) 0.1 10^3/uL (0.0-0.1); BASOPHILS % (AUTO) 1 % (0-10); EOSINOPHILS # (AUTO) 0.1 10^3/uL (0.0-0.3); EOSINOPHILS % (AUTO) 1 % (0-10); HEMATOCRIT 28 % (35-52); LYMPHOCYTES # (AUTO) 1.8 10^3/uL (1.0-4.0); LYMPHOCYTES % (AUTO) 23 % (12-44); MEAN CORPUSCULAR HEMOGLOBIN 24 pg (25-34); MEAN CORPUSCULAR HGB CONC 29 g/dL (32-36); MEAN CORPUSCULAR VOLUME 83 fL (80-99); MEAN PLATELET VOLUME 9.9 fL (9.0-12.2); MONOCYTES # (AUTO) 0.6 10^3/uL (0.0-1.0); MONOCYTES % (AUTO) 8 % (0-12); NEUTROPHILS # (AUTO) 5.1 10^3/uL (1.8-7.8); NEUTROPHILS % (AUTO) 65 % (42-75); PLATELET COUNT 412 10^3/uL (130-400); WHITE BLOOD COUNT 7.9 10^3/uL (4.3-11.0)
[2022-04-29 06:29] LABS: ALBUMIN 2.7 GM/DL (3.2-4.5)
[2022-04-29 06:30] LABS: POTASSIUM 4.1 MMOL/L (3.6-5.0)
[2022-04-29 06:31] LABS: CALCIUM 8.3 MG/DL (8.5-10.1)
[2022-04-29 06:32] LABS: TOTAL PROTEIN 6.2 GM/DL (6.4-8.2)
[2022-04-29 06:34] LABS: BILIRUBIN,TOTAL 0.6 MG/DL (0.1-1.0)
[2022-04-29 06:36] LABS: CREATININE SERUM 0.77 MG/DL (0.60-1.30)
[2022-04-29 07:27] VITALS: BP 123/66
[2022-04-29] MEDS: CYANOCOBALAMIN 1,000 MCG (VITAMIN B-12) TABLET PO SCH (07:50)
[2022-04-29] MEDS: RIVAROXABAN 20 MG TABLET (XARELTO) PO SCH (07:50)
[2022-04-29] MEDS: DOCUSATE SODIUM 100 MG (COLACE) CAP PO SCH ×2 (07:50→20:11)
[2022-04-29] MEDS: polyethylene glycoL POWDER 17 GM (MIRALAX) PACK PO SCH ×2 (07:50→20:22)
[2022-04-29] MEDS: SENNA W/DOCUSATE (SENOKOT S) TABLET PO SCH ×2 (08:25→20:22)
--- NOTE | 2022-04-29 09:04 | Physical Therapy Daily Note ---
PT Daily Note-Current Subjective Pt found seated on EOB /c nurse present upon entry. Agreed to PT. Reports back pain but does not describe or rate. States that her pain has not been any better. Pain Numeric Pain Scale: 0-No Pain Section J - Health Conditions 1. Rarely or not at all 2. Occasionally 3. Frequently 4. Almost constantly 8. Unable to answer Pain Effect on Sleep: 4 Pain Interference with Therapy: 4 Pain Interference w/Day-to-Day: 4 Mental Status Patient Orientation: Person, Time, Situation Transfers SCALE: Activities may be completed with or without assistive devices. 6-Esuixtopkw-jtjafcu completes the activity by him/herself with no assistance from a helper. 5-Set-up or Clean-up Assistance-helper sets up or cleans up; patient completes activity. [place] assists only prior to or following the activity. 4-Supervision or Touching Assistance-helper provides verbal cues and/or touching/steadying and/or contact guard assistance as patient completes activity. Assistance may be provided throughout the activity or intermittently. 3-Partial/Moderate Assistance-helper does LESS THAN HALF the effort. [place] lifts, holds or supports trunk or limbs, but provides less than half the effort. 2-Substantial/Maximal Assistance-helper does MORE THAN HALF the effort. [place] lifts or holds trunk or limbs and provides more than half the effort. 0-Ijpawvbti-kihouq does ALL the effort. Patient does none of the effort to complete the activity. Or, the assistance of 2 or more helpers is required for the patient to complete the activity. If activity was not attempted, code reason: 7-Patient Refused. 9-Not Applicable-not attempted and the patient did not perform the activity be fore the current illness, exacerbation or injury. 10-Not Attempted due to Environmental Limitations-(lack of equipment, weather restraints, etc.). 88-Not Attempted due to Medical Conditions or Safety Concerns. Sit to Stand (QC): 6 Pt independent /c sit<->stand trfs. Gait Training Does the Patient Walk?: Yes Distance: 500, 100 Walk 10 feet (QC): 6 Walk 50 ft with 2 Turns(QC): 6 Walk 150 ft (QC): 6 Gait Persons Needed: 1 Gait Assistive Device: FWW Pt independent /c gait training. Amb. 600ft total. Wheelchair Training Does the Pt Use a Wheelchair?: No Exercises Seated Therapy Exercises: Hip abd/add Seated Reps: 20 Standing: Hamstring curls, Heel/toe raises, 3 way Ex=Flex, Abd, Ext, Side steps, Step-ups Standing Reps: 10 Pt tolerated exercises well /c no report in increased pain. Requires seated/standing RBs between sets. Assessment Current Status: Fair Progress Pt tolerated Tx well /c no report of increased pain. Continue to progress pt as tolerated per POC to increase strength and improve functional ability. PT Short Term Goals Short Term Goals Time Frame: May 02, 2022 Sit to stand: 4 (SBA) Chair/stg-mg-wmlci transfer: 4 (SBA) Walk 10 feet: 4 (SBA) Walk 50 feet with two turns: 4 (SBA) Walk 150 feet: 4 (SBA) PT Nursing Home Goals Nursing Home Goals PT Quality Process Engineer Goals Time Frame: May 09, 2022 Roll Left & Right (QC): 6 Sit to Lying (QC): 6 Lying-Sitting on Side/Bed(QC): 6 Sit to Stand (QC): 6 Chair/Kci-dh-Ulmye Xfer(QC): 6 Toilet Transfer (QC): 6 Car Transfer (QC): 6 Does the Patient Walk: Yes Walk 10 feet (QC): 6 Walk 50ft with 2 Turns (QC): 6 Walk 150 ft (QC): 6 Walking 10ft on Uneven Surface: 6 1 Step (curb) (QC): 4 (SBA) 4 Steps (QC): 4 (SBA) 12 Steps (QC): 88 Picking up an Object (QC): 6 (using market development manager) Wheel 50 feet with 2 turns (QC: 9 Wheel 150 feet: 9 PT Plan Treatment/Plan Treatment Plan: Continue Plan of Care Treatment Plan: Bed Mobility, Education, Functional Activity Larry, Functional Strength, Group Therapy, Gait, Safety, Therapeutic Exercise, Transfers Treatment Duration: May 09, 2022 Frequency: At least 5 of 7 days/Wk (IRF) Estimated Hrs Per Day: 1.5 hours per day Patient and/or Family Agrees t: Yes Time Time In: 0800 Time Out: 0900 DATE: Apr 29, 2022 Total Billed Treatment Time: 60 Total Billed Treatment 1 visit GT 2x EX 2x MAJOR,MIGUEL BEAVER TRAPPER Apr 29, 2022 09:04
[2022-04-29] MEDS: cefTRIAXone 1 GM/50 ML (PRE-MIX) IV SCH (09:11)
[2022-04-29] MEDS: meTOproloL SUCCINATE 50 MG (TOPROL XL) TAB PO SCH (09:11)
[2022-04-29 09:12] VITALS: BP 113/71
[2022-04-29] MEDS: IRON SUCROSE 200 MG/10 ML (VENOFER) VIAL IV SCH (09:37)
--- NOTE | 2022-04-29 11:20 | Occupational Ther Daily Note ---
OT Current Status-Daily Note Subjective Pt in recliner, rates back pain 10/10. Mental Status/Objective Patient Orientation: Normal For Age ADL-Treatment Therapy Code Descriptions/Definitions Functional [place] Measure: 0=Not Assessed/NA 4=Minimal Assistance 1=Total Assistance 5=Supervision or Setup 2=Maximal Assistance 6=Modified [place] 3=Moderate Assistance 7=Complete IndependenceSCALE: Activities may be completed with or without assistive devices. 5-Ouzloppwyh-fbkjwuu completes the activity by him/herself with no assistance from a helper. 5-Set-up or Clean-up Assistance-helper sets up or cleans up; patient completes activity. [place] assists only prior to or following the activity. 4-Supervision or Touching Assistance-helper provides verbal cues and/or touching/steadying and/or contact guard assistance as patient completes activity. Assistance may be provided throughout the activity or intermittently. 3-Partial/Moderate Assistance-helper does LESS THAN HALF the effort. [place] lifts, holds or supports trunk or limbs, but provides less than half the effort. 2-Substantial/Maximal Assistance-helper does MORE THAN HALF the effort. [place] lifts or holds trunk or limbs and provides more than half the effort. 0-Mhyuldtls-cltsvs does ALL the effort. Patient does none of the effort to complete the activity. Or, the assistance of 2 or more helpers is required for the patient to complete the activity. If activity was not attempted, code reason: 7-Patient Refused. 9-Not Applicable-not attempted and the patient did not perform the activity before the current illness, exacerbation or injury. 10-Not Attempted due to Environmental Limitations-(lack of equipment, weather restraints, etc.). 88-Not Attempted due to Medical Conditions or Safety Concerns. Eating (QC): 6 Oral Hygiene (QC): 6 Shower/Bathe Self (QC): 5 Upper Body Dressing (QC): 5 Lower Body Dressing (QC): 5 On/Off Footwear: 5 Toileting Hygiene (QC): 6 Toilet Transfer (QC): 6 Other Treatment Pt in recliner, used FWW to transfer into bathroom. Pt completed toileting, showering, dressing, and grooming tasks, then returned to recliner. Pt required some encouragement to attempt LE dressing by herself due to back pain, but able to do it when she attempted. In order to increase BUE strength and fine motor coordination, pt completed reaching pegboard task. Pt able to place x100 pegs into foam pegboard, pt favored RUE with task, requiring cues to complete some pegs with LUE. Post tx, pt in recliner, call light in reach and all needs met. Education OT Patient Education: Correct positioning, Energy conservation, Modified ADL techniques, Progress toward Goal/Update tx plan, Purpose of tx/functional activities, Rehab process Teaching Recipient: Patient Teaching Methods: Discussion Response to Teaching: Verbalize Understanding OT Short Term Goals Short Term Goals Time Frame: May 01, 2022 Shower/bathe self: 5 Upper body dressin Lower body dressin Putting on/taking off footwear: 5 OT Longterm Goals Longterm Goals Time Frame: May 17, 2022 Acute change in mental status: 0 Inattention: 0 Disorganized thinkin Altered level of consciousness: 0 Eating (QC): 6 Oral Hygiene (QC): 6 Toileting Hygiene (QC): 6 Shower/Bathe Self (QC): 6 Upper Body Dressing (QC): 6 Lower Body Dressing (QC): 6 On/Off Footwear (QC): 6 Additional Goals: 1-Demonstrate ADL Tasks, 2-Verbalize Understanding, 3- ImproveStrength/Larry 1=Demonstrate adherence to instructed precautions during ADL tasks. 2=Patient will verbalize/demonstrate understanding of assistive devices/modifications for ADL. 3=Patient will improve strength/tolerance for activity to enable patient to perform ADL's. OT Education/Plan Problem List/Assessment Assessment: Decreased Activ Tolerance, Decreased UE Strength, Impaired I ADL's Discharge Recommendations Plan/Recommendations: Continue POC Treatment Plan/Plan of Care Patient would benefit from OT for education, treatment and training to promote independence in ADL's, mobility, safety and/or upper extremity function for ADL's. Plan of Care: ADL Retraining, Functional Mobility, Group Exercise/Act as Ind, UE Funct Exercise/Act Treatment Duration: May 17, 2022 Frequency: At least 5 of 7 days/Wk (IRF) Estimated Hrs Per Day: 1.5 hours per day Agreement: Yes Rehab Potential: Good Time Start Time: 10:15 Stop Time: 11:45 DATE: Apr 29, 2022 Total Time Billed (hr/min): 90 Billed Treatment Time 1, ADL 4 (60'), FA 2 (30') JESS REY OT Apr 29, 2022 11:20
--- NOTE | 2022-04-29 11:43 | Progress Note ---
DAVID WARD 04/29/22 1143: Progress Note S: Carmen Saunders (goes by Mary) is an 81yo F who was transfered to [facility] from [facility] after having a UTI caused by E.coli. She was being treated for chronic back pain and reported a h/o poor eating/nutrition. She has been seen for her conditions by her PCP Nadeen Carpenter in [place], and said that the best alleviator of her back pain has been Biofreeze treatments which her daughter was said to be bringing in today 04/26/22. Patient on encounter today was sitting up in bed and appeared to be fatigued, she continues to complain of b/l lower back pain around L2-L5, she is going in to recieve an X-ray to rule out any possible Fx. She continues to show improvement and has consistent BMs. D/C plans have been made and scheduled for 05/02/22. O: V/S: T(36.4) HR(60) RR(22) BP(113/71) SpO2(97 RA) Exam: General Appearance: No Apparent Distress, WD/WN, Obese Neck: Full Range of Motion, Normal Inspection, Non Tender, Supple, Respiratory: Chest Non Tender, Lungs Clear, Normal Breath Sounds, No Accessory Muscle Use, No Respiratory Distress Cardiovascular: Regular Rate, Rhythm, No Edema, No Gallop, No JVD, No Murmur, Normal Peripheral Pulses Gastrointestinal: Normal Bowel Sounds, No Organomegaly, No Pulsatile Mass, Non Tender, Soft Back: Normal Inspection, moderate lower back b/l tenderness, Decreased Range of Motion Extremity: Normal Capillary Refill, Normal Inspection, Non Tender, No Calf Tenderness, No Pedal Edema Neurologic/Psychiatric: Alert, Oriented x3, No Motor/Sensory Deficits, Normal Mood/Affect, Abnormal Gait, Motor Weakness (generalized) Skin: Normal Color, Warm/Dry Lymphatic: No Adenopathy Labs: labs shown signs of anemia, high platelet count(~450), low Iron A: Debility Poor nutrition MSK somatic dysfunction of lumbar region Pain Chronic anemia P: Aggressive pain management OT PT given metoprolol for low BP meal plan admin IV iron Lower back Imaging OPAL SHEFFIELD DO 04/30/22 7424: Supervisory-Addendum Brief Verification & Attestation Participated in pt care: history, MDM, physical Personally performed: exam, history, MDM, supervision of care Care discussed with: Medical Student Procedures: n/a Results interpretation: Verified all documentation Verification and Attestation of Medical Student E/M Service A medical student performed and documented this service in my presence. I reviewed and verified all information documented by the medical student and made modifications to such information, when appropriate. I personally performed the physical exam and medical decision making. Opal Sheffield Apr 30, 2022,05:24 DAVID WARD Apr 29, 2022 11:43 OPAL SHEFFIELD DO Apr 30, 2022 05:24
--- NOTE | 2022-04-29 13:04 | Diagnostic Imaging Report ---
INDICATION: Low back pain. Frontal and lateral lumbar spinal radiographs are performed. I have no priors. FINDINGS: There are severe degenerative changes to the discs, endplates, and facets throughout the lumbar spine. There is grade 1 anterolisthesis of L4 on L5 and grade 1 retrolisthesis of L3 on L4. There is disc space narrowing, endplate sclerosis, bulky osteophytes, and sclerotic facet hypertrophy on a chronic degenerative basis as well as rightward convexity degenerative lumbar rotoscoliotic curvature. No definite acute endplate irregularity or appreciable acute fracture. There are aortic atherosclerotic vascular calcifications. IMPRESSION: 1. Severe degenerative changes likely account for multilevel listheses and rightward convexity rotoscoliosis. A fracture deformity could not be identified at this two-view radiographic series. 2. The severity of degenerative changes would likely result in underlying stenosis of canal and/or neural foramina, and if there are neurologic symptoms present or is otherwise indicated, nonemergent follow-up with outpatient lumbar MRI may provide additional utility. Dictated by: Dictated on workstation # [id number]
--- NOTE | 2022-04-29 13:33 | Physical Therapy Daily Note ---
PT Daily Note-Current Subjective Pt found seated upon entry. Agreed to PT. Does not rate or report any change in pain. Pain Numeric Pain Scale: 0-No Pain Section J - Health Conditions 1. Rarely or not at all 2. Occasionally 3. Frequently 4. Almost constantly 8. Unable to answer Pain Effect on Sleep: 4 Pain Interference with Therapy: 4 Pain Interference w/Day-to-Day: 4 Mental Status Patient Orientation: Person, Time, Situation Transfers SCALE: Activities may be completed with or without assistive devices. 6-Adbxqxnxlt-khsbphz completes the activity by him/herself with no assistance from a helper. 5-Set-up or Clean-up Assistance-helper sets up or cleans up; patient completes activity. [place] assists only prior to or following the activity. 4-Supervision or Touching Assistance-helper provides verbal cues and/or touching/steadying and/or contact guard assistance as patient completes activity. Assistance may be provided throughout the activity or intermittently. 3-Partial/Moderate Assistance-helper does LESS THAN HALF the effort. [place] lift s, holds or supports trunk or limbs, but provides less than half the effort. 2-Substantial/Maximal Assistance-helper does MORE THAN HALF the effort. [place] lifts or holds trunk or limbs and provides more than half the effort. 5-Btabhvekw-poguax does ALL the effort. Patient does none of the effort to complete the activity. Or, the assistance of 2 or more helpers is required for the patient to complete the activity. If activity was not attempted, code reason: 7-Patient Refused. 9-Not Applicable-not attempted and the patient did not perform the activity before the current illness, exacerbation or injury. 10-Not Attempted due to Environmental Limitations-(lack of equipment, weather restraints, etc.). 88-Not Attempted due to Medical Conditions or Safety Concerns. Sit to Stand (QC): 6 Pt is independent /c sit<->stand trfs. Gait Training Does the Patient Walk?: Yes Distance: 300, 100 Walk 10 feet (QC): 6 Walk 50 ft with 2 Turns(QC): 6 Walk 150 ft (QC): 6 Gait Persons Needed: 1 Gait Assistive Device: FWW Pt is independent /c gait training. Amb. 400ft total. Wheelchair Training Does the Pt Use a Wheelchair?: No Exercises Seated Therapy Exercises: Hip abd/add Seated Reps: 20 Standing: Heel/toe raises, Step-ups Standing Reps: 10 Pt tolerated exercises well /c no report of increased pain. YTB used for seated abd. Ball used for seated add. Assessment Current Status: Fair Progress Pt tolerates Tx well /c no report of increased pain. Requires seated RBs between exercises. Continue to progress pt as tolerated per POC to increase functional ability and decrease pain. PT Short Term Goals Short Term Goals Time Frame: May 02, 2022 Sit to stand: 4 (SBA) Chair/cwz-is-kiuro transfer: 4 (SBA) Walk 10 feet: 4 (SBA) Walk 50 feet with two turns: 4 (SBA) Walk 150 feet: 4 (SBA) PT Foundation Relations Director Goals Senior Care Goals PT Senior Care Goals Time Frame: May 09, 2022 Roll Left & Right (QC): 6 Sit to Lying (QC): 6 Lying-Sitting on Side/Bed(QC): 6 Sit to Stand (QC): 6 Chair/Kdt-nt-Crqcp Xfer(QC): 6 Toilet Transfer (QC): 6 Car Transfer (QC): 6 Does the Patient Walk: Yes Walk 10 feet (QC): 6 Walk 50ft with 2 Turns (QC): 6 Walk 150 ft (QC): 6 Walking 10ft on Uneven Surface: 6 1 Step (curb) (QC): 4 (SBA) 4 Steps (QC): 4 (SBA) 12 Steps (QC): 88 Picking up an Object (QC): 6 (using digital performance analyst) Wheel 50 feet with 2 turns (QC: 9 Wheel 150 feet: 9 PT Plan Treatment/Plan Treatment Plan: Continue Plan of Care Treatment Plan: Bed Mobility, Education, Functional Activity Larry, Functional Strength, Group Therapy, Gait, Safety, Therapeutic Exercise, Transfers Treatment Duration: May 09, 2022 Frequency: At least 5 of 7 days/Wk (IRF) Estimated Hrs Per Day: 1.5 hours per day Patient and/or Family Agrees t: Yes Time Time In: 1300 Time Out: 1330 DATE: Apr 29, 2022 Total Billed Treatment Time: 30 Total Billed Treatment 1 visit GT 1x EX 1x MAJORMIGUEL ASSEMBLY REPAIRER Apr 29, 2022 13:33
[2022-04-29] MEDS ORDERED: PATIENT MAY USE OWN MED,SINGLE MED TP PRN (13:45)
[2022-04-29] MEDS: BIOFREEZE GEL TP PRN ×2 (15:18→20:11)
[2022-04-29 20:10] VITALS: BP 124/55
[2022-04-29] MEDS: CYCLOBENZAPRINE 10 MG (FLEXERIL) TAB PO PRN (23:01)
[2022-04-30] MEDS: oxyCODONE/APAP 5/325MG (PERCOCET 5) TABLET PO PRN ×4 (03:59→21:01)
[2022-04-30] MEDS: BIOFREEZE GEL TP PRN ×4 (03:59→18:38)
[2022-04-30] MEDS: LEVOTHYROXINE 100 MCG (LEVOTHROID) TAB PO SCH (06:16)
[2022-04-30] MEDS: CATHETER FLUSH 10 ML SYR IVP SCH ×3 (06:16→21:01)
[2022-04-30 07:25] VITALS: BP 114/72
[2022-04-30] MEDS: CYCLOBENZAPRINE 10 MG (FLEXERIL) TAB PO PRN ×2 (07:30→18:38)
[2022-04-30] MEDS: RIVAROXABAN 20 MG TABLET (XARELTO) PO SCH (07:30)
[2022-04-30] MEDS: CYANOCOBALAMIN 1,000 MCG (VITAMIN B-12) TABLET PO SCH (07:30)
[2022-04-30] MEDS: meTOproloL SUCCINATE 50 MG (TOPROL XL) TAB PO SCH (07:31)
[2022-04-30] MEDS: DOCUSATE SODIUM 100 MG (COLACE) CAP PO SCH ×2 (08:12→21:01)
[2022-04-30] MEDS: polyethylene glycoL POWDER 17 GM (MIRALAX) PACK PO SCH ×2 (08:12→21:00)
[2022-04-30] MEDS: SENNA W/DOCUSATE (SENOKOT S) TABLET PO SCH ×2 (08:12→21:00)
--- NOTE | 2022-04-30 09:12 | PM&R Progress Note ---
Subjective HPI/CC On Admission Date Seen by Provider: Apr 30, 2022 Time Seen by Provider: 09:00 Carmen Saunders (goes by Mary) is an 81yo F who was transfered to [facility] from [facility] after having a UTI caused by E.coli. She was being treated for chronic back pain and reported a h/o poor eating/nutrition. She has been seen for her conditions by her PCP Nadeen Carpenter in [place], and said that the best alleviator of her back pain has been Biofreeze treatments. She was seen with her daughter in the room, both of them requested a medication plan that uses [facility] for the pharmacy, saying they would want a handwritten prescription if necessary. Subjective/Events-last exam 04/30/2022: No issues reported Back pain discussed Replace IV 04/29/2022: Doing well Back pain is an issue Xray reveals severe DJD 04/28/2022: No major issues Back pain is still presents Bilateral lower back is where pain is will get xray tomorrow 04/27/2022: Still complaining of a lot of back pain but it is muscle skeletal in nature IV antibiotics continue Supportive care we will continue K pad will be ordered Patient appears to be very tired and unsure if she will totally recover from this illness 04/26/2022: Pt is having a lot of pain Percocet and Flexeril given Biofreeze will be added IV Rocephin will be continued for the full 14 days Metoprolol will be maintained even though BP is 109 Review of Systems General: Fatigue, Malaise Objective Exam Vital Signs Vital Signs Date Time Temp Pulse Resp B/P (MAP) Pulse Ox O2 Delivery O2 Flow Rate FiO2 04/30/22 21:00 NIV CPAP 04/30/22 19:47 36.2 84 20 99/65 (76) 95 Capillary Refill : General Appearance: No Apparent Distress, WD/WN, Chronically ill, Obese HEENT: PERRL/EOMI, Normal ENT Inspection, Pharynx Normal Neck: Full Range of Motion, Normal Inspection, Non Tender, Supple Respiratory: Chest Non Tender, Lungs Clear, Normal Breath Sounds, No Accessory Muscle Use, No Respiratory Distress Cardiovascular: Regular Rate, Rhythm, No Edema, No Gallop, No JVD, No Murmur, Normal Peripheral Pulses Gastrointestinal: Normal Bowel Sounds, No Organomegaly, No Pulsatile Mass, Non Tender, Soft Back: No CVA Tenderness, Decreased Range of Motion, Vertebral Tenderness Extremity: Normal Capillary Refill, Normal Inspection, Non Tender, No Calf Tenderness, No Pedal Edema Neurologic/Psychiatric: Alert, Oriented x3, No Motor/Sensory Deficits, Normal Mood/Affect Reflexes: 2+ Bicep (R), 2+ Bicep (L), 2+ Tricep (R), 2+ Tricep (L), 2+ Knee (R), 2+ Knee (L), 2+ Ankle (R), 2+ Ankle (L) Skin: Normal Color, Warm/Dry Lymphatic: No Adenopathy Results/Procedures Lab Patient resulted labs reviewed. FIM Transfers Therapy Code Descriptions/Definitions Functional [place] Measure: 0=Not Assessed/NA 4=Minimal Assistance 1=Total Assistance 5=Supervision or Setup 2=Maximal Assistance 6=Modified [place] 3=Moderate Assistance 7=Complete IndependenceSCALE: Activities may be completed with or without assistive devices. 5-Jjzovfhvwn-twlbohs completes the activity by him/herself with no assistance from a helper. 5-Set-up or Clean-up Assistance-helper sets up or cleans up; patient completes activity. [place] assists only prior to or following the activity. 4-Supervision or Touching Assistance-helper provides verbal cues and/or touching/steadying and/or contact guard assistance as patient completes activi ty. Assistance may be provided throughout the activity or intermittently. 3-Partial/Moderate Assistance-helper does LESS THAN HALF the effort. [place] lifts, holds or supports trunk or limbs, but provides less than half the effort. 2-Substantial/Maximal Assistance-helper does MORE THAN HALF the effort. [place] lifts or holds trunk or limbs and provides more than half the effort. 4-Ecibzukpa-utdwxy does ALL the effort. Patient does none of the effort to complete the activity. Or, the assistance of 2 or more helpers is required for the patient to complete the activity. If activity was not attempted, code reason: 7-Patient Refused. 9-Not Applicable-not attempted and the patient did not perform the activity before the current illness, exacerbation or injury. 10-Not Attempted due to Environmental Limitations-(lack of equipment, weather restraints, etc.). 88-Not Attempted due to Medical Conditions or Safety Concerns. Roll Left to Right (QC): 6 Sit to Lying (QC): 4 Sit to Stand (QC): 6 Chair/Wnv-fj-Jjkil Xfer(QC): 4 Car Transfer (QC): 4 Gait Training Does the Patient Walk?: Yes Distance: 300, 100 Walk 10 feet (QC): 6 Walk 50 ft with 2 Turns(QC): 6 Walk 150 ft (QC): 6 Walking 10ft/uneven surface-QC: 4 Gait Persons Needed: 1 Gait Assistive Device: FWW Wheelchair Training Does the Pt Use a Wheelchair?: No Wheel 50 ft with 2 turns (QC): 9 Wheel 150 ft (QC): 9 Stair Training 1 Step (curb) (QC): 4 4 Steps (QC): 88 12 Steps (QC): 88 Balance Picking up an Object (QC): 4 (CGA using a non emergency services ambulance driver) ADL-Treatment Eating (QC): 6 Oral Hygiene (QC): 6 Shower/Bathe Self (QC): 5 Upper Body Dressing (QC): 5 Lower Body Dressing (QC): 5 On/Off Footwear (QC): 5 Toileting Hygiene (QC): 6 Toilet Transfer (QC): 6 Assessment/Plan Assessment and Plan Assess & Plan/Chief Complaint Assessment: Debility E coli bacteremia maintained on Rocephin HADLEY on CPAP HTN HLP AF UTI OA Chronic pain Plan: Pain control IV abx Monitor closely BM regimen PT OT 04/26/2022: Supportive care Rocephin 04/27/2022: Pain control Try to resolve apathy 04/28/2022: Xray tomorrow Monitor pain Kpad 04/29/2022: Xray reviewed 04/30/2022: Pain control Xray reviewed w/patient (1) Debility JEYSON SHEFFIELD DO Apr 30, 2022 09:12
--- NOTE | 2022-04-30 09:20 | Occupational Ther Daily Note ---
OT Current Status-Daily Note Subjective Pt in recliner, agreeable to OT Tx. Rates pain 5/10 in low back. Mental Status/Objective Patient Orientation: Normal For Age ADL-Treatment Therapy Code Descriptions/Definitions Functional [place] Measure: 0=Not Assessed/NA 4=Minimal Assistance 1=Total Assistance 5=Supervision or Setup 2=Maximal Assistance 6=Modified [place] 3=Moderate Assistance 7=Complete IndependenceSCALE: Activities may be completed with or without assistive devices. 5-Ncyjqbtupq-wfqdpqm completes the activity by him/herself with no assistance from a helper. 5-Set-up or Clean-up Assistance-helper sets up or cleans up; patient completes activity. [place] assists only prior to or following the activity. 4-Supervision or Touching Assistance-helper provides verbal cues and/or touching/steadying and/or contact guard assistance as patient completes activity. Assistance may be provided throughout the activity or intermittently. 3-Partial/Moderate Assistance-helper does LESS THAN HALF the effort. [place] lifts, holds or supports trunk or limbs, but provides less than half the effort. 2-Substantial/Maximal Assistance-helper does MORE THAN HALF the effort. [place] lifts or holds trunk or limbs and provides more than half the effort. 4-Gpaabxedk-shjsfd does ALL the effort. Patient does none of the effort to complete the activity. Or, the assistance of 2 or more helpers is required for the patient to complete the activity. If activity was not attempted, code reason: 7-Patient Refused. 9-Not Applicable-not attempted and the patient did not perform the activity befo re the current illness, exacerbation or injury. 10-Not Attempted due to Environmental Limitations-(lack of equipment, weather re straints, etc.). 88-Not Attempted due to Medical Conditions or Safety Concerns. Toileting Hygiene (QC): 6 Toilet Transfer (QC): 6 Other Treatment Pt in recliner, agreeable to OT Tx. Pt used FWW to transfer into bathroom, complete toileting, then used FWW to perform functional mobility to therapy gym. OT Tx focused on increasing BUE Strength and activity tolerance. Pt completed arm bike, x10 mins, 20 Watt resistance, no rest breaks. She then removed beads from moderate resistance (green) theraputty, able to locate all beads without cues. Pt placed/removed 1" pegs from foam pegboard for bilaterally reaching activity. Pt completed x100 pegs total. Pt then sorted cards by color, then high to low. Pt completed graded clothes pins, ranging 1-5 lbs, x1 round BUEs. Pt used FWW to return to her room, complete toileting, then transfer to recliner. Post tx, pt in recliner, call light in reach and all needs met. Education OT Patient Education: Correct positioning, Energy conservation, Modified ADL techniques, Progress toward Goal/Update tx plan, Purpose of tx/functional activities, Rehab process Teaching Recipient: Patient Teaching Methods: Discussion Response to Teaching: Verbalize Understanding BIMS CAM BIMS Expression of Ideas and Wants: Without Difficulty Understanding Verbal Content: Usually Understands Brief Interview/Mental Status: Yes IRF JHONNY BIMS: IRF JHONNY BIMS Response (Comments) Value Repitition of Three Words One 1 Recalls Socks No, Could Not Recall 0 Recalls Blue Yes, No Cue Required 2 Recalls Bed Yes, No Cue Required 2 Year Correct 3 Month Accurate Within 5 Days 2 Day Incorrect or No Answer 0 Total 10 CAM Mental Status Change/Baseline: 0 Inattention: 0 Disorganized thinkin Altered level of consciousness: 0 OT Short Term Goals Short Term Goals Time Frame: May 01, 2022 Shower/bathe self: 5 Upper body dressin Lower body dressin Putting on/taking off footwear: 5 OT Building Estimator Goals Intermediate Goals Time Frame: May 17, 2022 Acute change in mental status: 0 Inattention: 0 Disorganized thinkin Altered level of consciousness: 0 Eating (QC): 6 Oral Hygiene (QC): 6 Toileting Hygiene (QC): 6 Shower/Bathe Self (QC): 6 Upper Body Dressing (QC): 6 Lower Body Dressing (QC): 6 On/Off Footwear (QC): 6 Additional Goals: 1-Demonstrate ADL Tasks, 2-Verbalize Understanding, 3- ImproveStrength/Larry 1=Demonstrate adherence to instructed precautions during ADL tasks. 2=Patient will verbalize/demonstrate understanding of assistive devices/modifications for ADL. 3=Patient will improve strength/tolerance for activity to enable patient to perform ADL's. OT Education/Plan Problem List/Assessment Assessment: Decreased Activ Tolerance, Decreased UE Strength, Impaired I ADL's Discharge Recommendations Plan/Recommendations: Continue POC Treatment Plan/Plan of Care Patient would benefit from OT for education, treatment and training to promote independence in ADL's, mobility, safety and/or upper extremity function for ADL's. Plan of Care: ADL Retraining, Functional Mobility, Group Exercise/Act as Ind, UE Funct Exercise/Act Treatment Duration: May 17, 2022 Frequency: At least 5 of 7 days/Wk (IRF) Estimated Hrs Per Day: 1.5 hours per day Agreement: Yes Rehab Potential: Good Time Start Time: 09:00 Stop Time: 10:30 DATE: Apr 30, 2022 Total Time Billed (hr/min): 90 Billed Treatment Time 1, ADL (20'), EX (10'), FA 4 (60') JESS REY OT Apr 30, 2022 09:20
[2022-04-30] MEDS: cefTRIAXone 1 GM/50 ML (PRE-MIX) IV SCH (10:54)
--- NOTE | 2022-04-30 11:51 | Physical Therapy Daily Note ---
PT Daily Note-Current Subjective Pt found seated on EOB upon entry. Agreed to PT. States that she has been feeling better since she first got to the rehab center. Does not rate or report any change in pain. Pain Numeric Pain Scale: 0-No Pain Section J - Health Conditions 1. Rarely or not at all 2. Occasionally 3. Frequently 4. Almost constantly 8. Unable to answer Pain Effect on Sleep: 4 Pain Interference with Therapy: 4 Pain Interference w/Day-to-Day: 4 Mental Status Patient Orientation: Normal For Age Transfers SCALE: Activities may be completed with or without assistive devices. 4-Rzjmovagnf-jktevlu completes the activity by him/herself with no assistance from a helper. 5-Set-up or Clean-up Assistance-helper sets up or cleans up; patient completes activity. [place] assists only prior to or following the activity. 4-Supervision or Touching Assistance-helper provides verbal cues and/or touching/steadying and/or contact guard assistance as patient completes activity. Assistance may be provided throughout the activity or intermittently. 3-Partial/Moderate Assistance-helper does LESS THAN HALF the effort. [place] lifts, holds or supports trunk or limbs, but provides less than half the effort. 2-Substantial/Maximal Assistance-helper does MORE THAN HALF the effort. [place] lifts or holds trunk or limbs and provides more than half the effort. 6-Scykzwzup-hvgnxu does ALL the effort. Patient does none of the effort to comp lete the activity. Or, the assistance of 2 or more helpers is required for the patient to complete the activity. If activity was not attempted, code reason: 7-Patient Refused. 9-Not Applicable-not attempted and the patient did not perform the activity before the current illness, exacerbation or injury. 10-Not Attempted due to Environmental Limitations-(lack of equipment, weather restraints, etc.). 88-Not Attempted due to Medical Conditions or Safety Concerns. Sit to Stand (QC): 6 Pt independent /c sit<->stand trfs. Gait Training Does the Patient Walk?: Yes Distance: 400, 100 Walk 10 feet (QC): 6 Walk 50 ft with 2 Turns(QC): 6 Walk 150 ft (QC): 6 Gait Persons Needed: 1 Gait Assistive Device: FWW Pt independent /c gait training. Amb. 500ft total. Wheelchair Training Does the Pt Use a Wheelchair?: No Exercises Seated Therapy Exercises: Hip abd/add Seated Reps: 20 Standing: Hamstring curls, Heel/toe raises, 3 way Ex=Flex, Abd, Ext, Marching, Side steps, Step-ups Standing Reps: 15 Pt tolerated exercises well /c no report of increased pain. Assessment Current Status: Fair Progress Pt tolerated Tx well /c no report of increased pain. Continue to progress pt as tolerated to increase strength and functional ability. PT Short Term Goals Short Term Goals Time Frame: May 02, 2022 Sit to stand: 4 (SBA) Chair/aqc-vk-eyfak transfer: 4 (SBA) Walk 10 feet: 4 (SBA) Walk 50 feet with two turns: 4 (SBA) Walk 150 feet: 4 (SBA) PT [facility] Goals [facility] Goals PT Accelerator Operator Goals Time Frame: May 09, 2022 Roll Left & Right (QC): 6 Sit to Lying (QC): 6 Lying-Sitting on Side/Bed(QC): 6 Sit to Stand (QC): 6 Chair/Vhj-kc-Uniyb Xfer(QC): 6 Toilet Transfer (QC): 6 Car Transfer (QC): 6 Does the Patient Walk: Yes Walk 10 feet (QC): 6 Walk 50ft with 2 Turns (QC): 6 Walk 150 ft (QC): 6 Walking 10ft on Uneven Surface: 6 1 Step (curb) (QC): 4 (SBA) 4 Steps (QC): 4 (SBA) 12 Steps (QC): 88 Picking up an Object (QC): 6 (using fundraiser) Wheel 50 feet with 2 turns (QC: 9 Wheel 150 feet: 9 PT Plan Treatment/Plan Treatment Plan: Continue Plan of Care Treatment Plan: Bed Mobility, Education, Functional Activity Larry, Functional Strength, Group Therapy, Gait, Safety, Therapeutic Exercise, Transfers Treatment Duration: May 09, 2022 Frequency: At least 5 of 7 days/Wk (IRF) Estimated Hrs Per Day: 1.5 hours per day Patient and/or Family Agrees t: Yes Time Time In: 0800 Time Out: 0900 DATE: Apr 30, 2022 Total Billed Treatment Time: 60 Total Billed Treatment 1 visit GT 2x EX 2x MAJOR,MIGUEL DRAFTER ELECTROMECHANICAL Apr 30, 2022 11:51
--- NOTE | 2022-04-30 12:39 | Progress Note ---
DAVID WARD 04/30/22 1239: Progress Note Hospital Course: Mary Saunders is an 81yo F clinic patient of [facility] who has a h/o AF and HADLEY on CPAP who presented to the ARU 04/25/22 following a hospital course at [facility] where she was admitted for sepsis from UTI and ultimately revealed E coli bacteremia sensitive to Rocephin. Patient feels much better today. Bowels are moving. PLOF was independent with all ADL's and no use of AD. Patient maintained on OAC. Mary entered the ARU with moderate debility and need of strengthening. She entered with low appetite and history of malnourishment, where a meal plan was t hen made for her. She handled her PT/OT treatments well, eating and passing stools consistently, though she continued to complain of lower lumbar back pain b/l. X-ray images were then taken 04/29/22 revealing sever DJD. Her continued improvement led to a plan for DC being established for 05/01/22 where she will be released with her family and continue to recover at home. OPAL SHEFFIELD DO 05/01/22 0543: Supervisory-Addendum Brief Verification & Attestation Participated in pt care: history, MDM, physical Personally performed: exam, history, MDM, supervision of care Care discussed with: Medical Student Procedures: n/a Results interpretation: Verified all documentation Verification and Attestation of Medical Student E/M Service A medical student performed and documented this service in my presence. I reviewed and verified all information documented by the medical student and made modifications to such information, when appropriate. I personally performed the physical exam and medical decision making. Opal Sheffield May 01, 2022,05:43 DAVID WARD Apr 30, 2022 12:39 OPAL SHEFFIELD DO May 01, 2022 05:43
--- NOTE | 2022-04-30 13:59 | Physical Therapy Daily Note ---
PT Daily Note-Current Subjective Pt found seated upon entry. Agreed to PT. States that her back feels sore. Does not rate pain. Pain Numeric Pain Scale: 0-No Pain Section J - Health Conditions 1. Rarely or not at all 2. Occasionally 3. Frequently 4. Almost constantly 8. Unable to answer Pain Effect on Sleep: 4 Pain Interference with Therapy: 4 Pain Interference w/Day-to-Day: 4 Mental Status Patient Orientation: Normal For Age Transfers SCALE: Activities may be completed with or without assistive devices. 6-Hijxyyrdzf-csfqkqj completes the activity by him/herself with no assistance from a helper. 5-Set-up or Clean-up Assistance-helper sets up or cleans up; patient completes activity. [place] assists only prior to or following the activity. 4-Supervision or Touching Assistance-helper provides verbal cues and/or touching/steadying and/or contact guard assistance as patient completes activity. Assistance may be provided throughout the activity or intermittently. 3-Partial/Moderate Assistance-helper does LESS THAN HALF the effort. [place] lift s, holds or supports trunk or limbs, but provides less than half the effort. 2-Substantial/Maximal Assistance-helper does MORE THAN HALF the effort. [place] lifts or holds trunk or limbs and provides more than half the effort. 7-Zbyhkpaiq-xlqbzh does ALL the effort. Patient does none of the effort to complete the activity. Or, the assistance of 2 or more helpers is required for the patient to complete the activity. If activity was not attempted, code reason: 7-Patient Refused. 9-Not Applicable-not attempted and the patient did not perform the activity before the current illness, exacerbation or injury. 10-Not Attempted due to Environmental Limitations-(lack of equipment, weather restraints, etc.). 88-Not Attempted due to Medical Conditions or Safety Concerns. Sit to Stand (QC): 6 Pt independent /c sit<->stand trfs. Gait Training Does the Patient Walk?: Yes Distance: 400, 100 Walk 10 feet (QC): 6 Walk 50 ft with 2 Turns(QC): 6 Walk 150 ft (QC): 6 Gait Persons Needed: 1 Gait Assistive Device: FWW Pt independent /c gait training. Amb. 500ft total. Wheelchair Training Does the Pt Use a Wheelchair?: No Exercises Seated Therapy Exercises: Hip abd/add Seated Reps: 20 Standing: Step-ups Standing Reps: 10 Pt tolerated exercises well /c no report of increased pain. Assessment Current Status: Fair Progress Pt tolerated Tx well /c no report of increased pain. Continue to progress pt as tolerated per POC to increase functional ability. PT Short Term Goals Short Term Goals Time Frame: May 02, 2022 Sit to stand: 4 (SBA) Chair/qlm-qh-yxktl transfer: 4 (SBA) Walk 10 feet: 4 (SBA) Walk 50 feet with two turns: 4 (SBA) Walk 150 feet: 4 (SBA) PT Wireless Team Member Goals Senior Living Goals PT Senior Living Goals Time Frame: May 09, 2022 Roll Left & Right (QC): 6 Sit to Lying (QC): 6 Lying-Sitting on Side/Bed(QC): 6 Sit to Stand (QC): 6 Chair/Kor-wb-Ncmpv Xfer(QC): 6 Toilet Transfer (QC): 6 Car Transfer (QC): 6 Does the Patient Walk: Yes Walk 10 feet (QC): 6 Walk 50ft with 2 Turns (QC): 6 Walk 150 ft (QC): 6 Walking 10ft on Uneven Surface: 6 1 Step (curb) (QC): 4 (SBA) 4 Steps (QC): 4 (SBA) 12 Steps (QC): 88 Picking up an Object (QC): 6 (using quality assurance tech) Wheel 50 feet with 2 turns (QC: 9 Wheel 150 feet: 9 PT Plan Treatment/Plan Treatment Plan: Continue Plan of Care Treatment Plan: Bed Mobility, Education, Functional Activity Larry, Functional Strength, Group Therapy, Gait, Safety, Therapeutic Exercise, Transfers Treatment Duration: May 09, 2022 Frequency: At least 5 of 7 days/Wk (IRF) Estimated Hrs Per Day: 1.5 hours per day Patient and/or Family Agrees t: Yes Time Time In: 1300 Time Out: 1330 DATE: Apr 30, 2022 Total Billed Treatment Time: 30 Total Billed Treatment 1 visit GT 1x EX 1x MAJOR,MIGUEL CASE INVESTIGATOR Apr 30, 2022 13:59
[2022-04-30 19:47] VITALS: BP 99/65
[2022-05-01] MEDS: oxyCODONE/APAP 5/325MG (PERCOCET 5) TABLET PO PRN ×4 (03:03→21:27)
[2022-05-01] MEDS: CATHETER FLUSH 10 ML SYR IVP SCH ×3 (06:11→21:27)
[2022-05-01] MEDS: LEVOTHYROXINE 100 MCG (LEVOTHROID) TAB PO SCH (06:11)
--- NOTE | 2022-05-01 06:22 | PM&R Progress Note ---
Subjective HPI/CC On Admission Date Seen by Provider: May 01, 2022 Time Seen by Provider: 09:00 Carmen Saunders (goes by Mary) is an 81yo F who was transfered to [facility] from [facility] after having a UTI caused by E.coli. She was being treated for chronic back pain and reported a h/o poor eating/nutrition. She has been seen for her conditions by her PCP Nadeen Carpenter in [place], and said that the best alleviator of her back pain has been Biofreeze treatments. She was seen with her daughter in the room, both of them requested a medication plan that uses [facility] for the pharmacy, saying they would want a handwritten prescription if necessary. Subjective/Events-last exam 05/01/2022: Doing well No issues DC tomorrow 04/30/2022: No issues reported Back pain discussed Replace IV 04/29/2022: Doing well Back pain is an issue Xray reveals severe DJD 04/28/2022: No major issues Back pain is still presents Bilateral lower back is where pain is will get xray tomorrow 04/27/2022: Still complaining of a lot of back pain but it is muscle skeletal in nature IV antibiotics continue Supportive care we will continue K pad will be ordered Patient appears to be very tired and unsure if she will totally recover from this illness 04/26/2022: Pt is having a lot of pain Percocet and Flexeril given Biofreeze will be added IV Rocephin will be continued for the full 14 days Metoprolol will be maintained even though BP is 109 Review of Systems General: Fatigue, Malaise Objective Exam Vital Signs Vital Signs Date Time Temp Pulse Resp B/P (MAP) Pulse Ox O2 Delivery O2 Flow Rate FiO2 05/01/22 20:00 Room Air 05/01/22 19:24 36.7 80 18 128/60 (82) 96 Capillary Refill : General Appearance: No Apparent Distress, WD/WN, Chronically ill, Obese HEENT: PERRL/EOMI, Normal ENT Inspection, Pharynx Normal Neck: Full Range of Motion, Normal Inspection, Non Tender, Supple Respiratory: Chest Non Tender, Lungs Clear, Normal Breath Sounds, No Accessory Muscle Use, No Respiratory Distress Cardiovascular: Regular Rate, Rhythm, No Edema, No Gallop, No JVD, No Murmur, Normal Peripheral Pulses Gastrointestinal: Normal Bowel Sounds, No Organomegaly, No Pulsatile Mass, Non Tender, Soft Back: No CVA Tenderness, Decreased Range of Motion, Vertebral Tenderness Extremity: Normal Capillary Refill, Normal Inspection, Non Tender, No Calf Tenderness, No Pedal Edema Neurologic/Psychiatric: Alert, Oriented x3, No Motor/Sensory Deficits, Normal Mood/Affect Reflexes: 2+ Bicep (R), 2+ Bicep (L), 2+ Tricep (R), 2+ Tricep (L), 2+ Knee (R), 2+ Knee (L), 2+ Ankle (R), 2+ Ankle (L) Skin: Normal Color, Warm/Dry Lymphatic: No Adenopathy Results/Procedures Lab Patient resulted labs reviewed. FIM Transfers Therapy Code Descriptions/Definitions Functional [place] Measure: 0=Not Assessed/NA 4=Minimal Assistance 1=Total Assistance 5=Supervision or Setup 2=Maximal Assistance 6=Modified [place] 3=Moderate Assistance 7=Complete IndependenceSCALE: Activities may be completed with or without assistive devices. 7-Biopkfaxpi-pprjcva completes the activity by him/herself with no assistance from a helper. 5-Set-up or Clean-up Assistance-helper sets up or cleans up; patient completes activity. [place] assists only prior to or following the activity. 4-Supervision or Touching Assistance-helper provides verbal cues and/or touching/steadying and/or contact guard assistance as patient completes activity. Assistance may be provided throughout the activity or intermittently. 3-Partial/Moderate Assistance-helper does LESS THAN HALF the effort. [place] lifts, holds or supports trunk or limbs, but provides less than half the effort. 2-Substantial/Maximal Assistance-helper does MORE THAN HALF the effort. [place] lifts or holds trunk or limbs and provides more than half the effort. 7-Rnkeivaqv-mqakik does ALL the effort. Patient does none of the effort to com plete the activity. Or, the assistance of 2 or more helpers is required for the patient to complete the activity. If activity was not attempted, code reason: 7-Patient Refused. 9-Not Applicable-not attempted and the patient did not perform the activity before the current illness, exacerbation or injury. 10-Not Attempted due to Environmental Limitations-(lack of equipment, weather restraints, etc.). 88-Not Attempted due to Medical Conditions or Safety Concerns. Roll Left to Right (QC): 6 Sit to Lying (QC): 4 Sit to Stand (QC): 6 Chair/Gdf-qi-Swtdi Xfer(QC): 4 Car Transfer (QC): 4 Gait Training Does the Patient Walk?: Yes Distance: 400, 100 Walk 10 feet (QC): 6 Walk 50 ft with 2 Turns(QC): 6 Walk 150 ft (QC): 6 Walking 10ft/uneven surface-QC: 4 Gait Persons Needed: 1 Gait Assistive Device: FWW Wheelchair Training Does the Pt Use a Wheelchair?: No Wheel 50 ft with 2 turns (QC): 9 Wheel 150 ft (QC): 9 Stair Training 1 Step (curb) (QC): 4 4 Steps (QC): 88 12 Steps (QC): 88 Balance Picking up an Object (QC): 4 (CGA using a cook house supervisor) ADL-Treatment Eating (QC): 6 Oral Hygiene (QC): 6 Shower/Bathe Self (QC): 5 Upper Body Dressing (QC): 5 Lower Body Dressing (QC): 5 On/Off Footwear (QC): 5 Toileting Hygiene (QC): 6 Toilet Transfer (QC): 6 Assessment/Plan Assessment and Plan Assess & Plan/Chief Complaint Assessment: Debility E coli bacteremia maintained on Rocephin HADLEY on CPAP HTN HLP AF UTI OA Chronic pain Plan: Pain control IV abx Monitor closely BM regimen PT OT 04/26/2022: Supportive care Rocephin 04/27/2022: Pain control Try to resolve apathy 04/28/2022: Xray tomorrow Monitor pain Kpad 04/29/2022: Xray reviewed 04/30/2022: Pain control Xray reviewed w/patient 05/01/2022: DC tomorrow (1) Debility JEYSON SHEFFIELD DO May 01, 2022 06:22
[2022-05-01 07:18] VITALS: BP 108/70
[2022-05-01] MEDS: CYANOCOBALAMIN 1,000 MCG (VITAMIN B-12) TABLET PO SCH (08:15)
[2022-05-01] MEDS: SENNA W/DOCUSATE (SENOKOT S) TABLET PO SCH ×2 (08:15→21:26)
[2022-05-01] MEDS: DOCUSATE SODIUM 100 MG (COLACE) CAP PO SCH ×2 (08:15→21:26)
[2022-05-01] MEDS: polyethylene glycoL POWDER 17 GM (MIRALAX) PACK PO SCH ×2 (08:16→21:19)
[2022-05-01] MEDS: RIVAROXABAN 20 MG TABLET (XARELTO) PO SCH (08:16)
[2022-05-01] MEDS: meTOproloL SUCCINATE 50 MG (TOPROL XL) TAB PO SCH (08:16)
[2022-05-01] MEDS ORDERED: CEFD300C3 PO (09:10)
[2022-05-01] MEDS ORDERED: CYAN-41 PO (09:10)
[2022-05-01] MEDS ORDERED: OXYC1TAB11 PO (09:10)
[2022-05-01] MEDS ORDERED: CYCL10TA25 PO (09:10)
--- NOTE | 2022-05-01 09:23 | Physical Therapy Daily Note ---
PT Daily Note-Current Subjective Pt. agrees to Rx. Explains her recent medical history and that she feels she has progressed and is ready to DC tomorrow, compliments the care here. Pt. states she has pain in low back and rates at 6/10 but states it has not interfered with sleep or her therapies Pain Numeric Pain Scale: 6 Location: Lower Location Body Site: Back Pain Description: Dull Section J - Health Conditions 1. Rarely or not at all 2. Occasionally 3. Frequently 4. Almost constantly 8. Unable to answer Pain Effect on Sleep: 1 Pain Interference with Therapy: 1 Pain Interference w/Day-to-Day: 1 Mental Status Patient Orientation: Normal For Age Transfers SCALE: Activities may be completed with or without assistive devices. 0-Vpowktcwkk-iednnny completes the activity by him/herself with no assistance from a helper. 5-Set-up or Clean-up Assistance-helper sets up or cleans up; patient completes activity. [place] assists only prior to or following the activity. 4-Supervision or Touching Assistance-helper provides verbal cues and/or touching/steadying and/or contact guard assistance as patient completes activity. Assistance may be provided throughout the activity or intermittently. 3-Partial/Moderate Assistance-helper does LESS THAN HALF the effort. [place] lifts, holds or supports trunk or limbs, but provides less than half the effort. 2-Substantial/Maximal Assistance-helper does MORE THAN HALF the effort. [place] lifts or holds trunk or limbs and provides more than half the effort. 8-Bzmsyppmb-bneijw does ALL the effort. Patient does none of the effort to complete the activity. Or, the assistance of 2 or more helpers is required for the patient to complete the activity. If activity was not attempted, code reason: 7-Patient Refused. 9-Not Applicable-not attempted and the patient did not perform the activity before the current illness, exacerbation or injury. 10-Not Attempted due to Environmental Limitations-(lack of equipment, weather restraints, etc.). 88-Not Attempted due to Medical Conditions or Safety Concerns. Roll Left & Right (QC): 6 Sit to Lying (QC): 6 Lying to Sitting/Side of Bed(Q: 6 Sit to Stand (QC): 6 Chair/Axp-iu-Lsnsh Xfer(QC): 6 Toilet Transfer (QC): 6 Car Transfer (QC): 6 Gait Training Does the Patient Walk?: Yes Walk 10 feet (QC): 6 Walk 50 ft with 2 Turns(QC): 6 Walk 150 ft (QC): 6 Walking 10ft/uneven surface-QC: 6 Gait Persons Needed: 1 Gait Assistive Device: FWW a few cues for position in FWW and alignment, no LOB, pt. finds FWW helpful and demonstrates safe use of it Wheelchair Training Does the Pt Use a Wheelchair?: No Stair Training Stair Training: Handrails/: 2 handrails #of Steps: 12 1 Step (curb) (QC): 4 4 Steps (QC): 4 12 Steps (QC): 4 Stairs: Pattern: Reciprocal Balance Picking up an Object (QC): 6 Exercises Supine Ex: Bridging, Ankle pumps, Quad Set, Rolling, Glut sets, Heel Slides, Short Arc Quads, Scooting, Straight leg raise, Hip abd/add Supine Reps: 15 Seated Therapy Exercises: Ankle pumps, Sit to stand, Long arc quads, Hip flexion, Hip abd/add Seated Reps: 10 NuStep Minutes: 12 NuStep Workload: 1 Treatments TRFs, gait, steps, toileting x2, AM care at sink, therex , QC complete, up in recliner after Rx with negrete at hand, all needs met Assessment Current Status: Good Progress motivated , gives good effort , goals met PT Short Term Goals Short Term Goals Time Frame: May 02, 2022 Sit to stand: 4 (SBA) Chair/jdf-xz-qmhdv transfer: 4 (SBA) Walk 10 feet: 4 (SBA) Walk 50 feet with two turns: 4 (SBA) Walk 150 feet: 4 (SBA) PT Residential Goals Research Quality Assurance Analyst Goals PT Residential Goals Time Frame: May 09, 2022 Roll Left & Right (QC): 6 Sit to Lying (QC): 6 Lying-Sitting on Side/Bed(QC): 6 Sit to Stand (QC): 6 Chair/Nqv-sb-Fieqx Xfer(QC): 6 Toilet Transfer (QC): 6 Car Transfer (QC): 6 Does the Patient Walk: Yes Walk 10 feet (QC): 6 Walk 50ft with 2 Turns (QC): 6 Walk 150 ft (QC): 6 Walking 10ft on Uneven Surface: 6 1 Step (curb) (QC): 4 (SBA) 4 Steps (QC): 4 (SBA) 12 Steps (QC): 88 Picking up an Object (QC): 6 (using utilization review specialist) Wheel 50 feet with 2 turns (QC: 9 Wheel 150 feet: 9 PT Plan Treatment/Plan Treatment Plan: Continue Plan of Care Treatment Plan: Bed Mobility, Education, Functional Activity Laryr, Functional Strength, Group Therapy, Gait, Safety, Therapeutic Exercise, Transfers Treatment Duration: May 09, 2022 Frequency: At least 5 of 7 days/Wk (IRF) Estimated Hrs Per Day: 1.5 hours per day Patient and/or Family Agrees t: Yes Safety Risks/Education Patient Education: Gait Training, Transfer Techniques, Steps, Correct Positioning, Disease Process, Safety Issues Teaching Recipient: Patient Teaching Methods: Demonstration, Discussion Response to Teaching: Verbalize Understanding, Return Demonstration, Reinforcement Needed Time Time In: 755 Time Out: 925 DATE: May 01, 2022 Total Billed Treatment Time: 90 Total Billed Treatment 1,FA30m,GT25m,EX35m NIKITA NEWELL SHAPER AND PRESSER May 01, 2022 09:23
[2022-05-01] MEDS: IRON SUCROSE 200 MG/10 ML (VENOFER) VIAL IV SCH (09:34)
[2022-05-01] MEDS: cefTRIAXone 1 GM/50 ML (PRE-MIX) IV SCH (09:56)
--- NOTE | 2022-05-01 10:17 | Occupational Ther Daily Note ---
OT Current Status-Daily Note Subjective Pt in recliner, agreeable to OT Tx with focus on ADLs. Pt's RN requests OT to defer shower until after IV antibiotics are given due to difficulty getting an IV site. Pain Numeric Pain Scale: 8 Location: Lower Location Body Site: Back Mental Status/Objective Attachments: IV ADL-Treatment Therapy Code Descriptions/Definitions Functional [place] Measure: 0=Not Assessed/NA 4=Minimal Assistance 1=Total Assistance 5=Supervision or Setup 2=Maximal Assistance 6=Modified [place] 3=Moderate Assistance 7=Complete IndependenceSCALE: Activities may be completed with or without assistive devices. 0-Dngszkuxus-vfkvtzw completes the activity by him/herself with no assistance from a helper. 5-Set-up or Clean-up Assistance-helper sets up or cleans up; patient completes activity. [place] assists only prior to or following the activity. 4-Supervision or Touching Assistance-helper provides verbal cues and/or touching/steadying and/or contact guard assistance as patient completes activity. Assistance may be provided throughout the activity or intermittently. 3-Partial/Moderate Assistance-helper does LESS THAN HALF the effort. [place] lifts, holds or supports trunk or limbs, but provides less than half the effort. 2-Substantial/Maximal Assistance-helper does MORE THAN HALF the effort. [place] lifts or holds trunk or limbs and provides more than half the effort. 1-Gmdlwmciy-nbmhpx does ALL the effort. Patient does none of the effort to complete the activity. Or, the assistance of 2 or more helpers is required for the patient to complete the activity. If activity was not attempted, code reason: 7-Patient Refused. 9-Not Applicable-not attempted and the patient did not perform the activity before the current illness, exacerbation or injury. 10-Not Attempted due to Environmental Limitations-(lack of equipment, weather restraints, etc.). 88-Not Attempted due to Medical Conditions or Safety Concerns. Eating (QC): 6 Oral Hygiene (QC): 6 Shower/Bathe Self (QC): 6 Upper Body Dressing (QC): 6 Lower Body Dressing (QC): 6 On/Off Footwear: 6 (IND slip on shoes, pt would require min A with socks due to back pain.) Toileting Hygiene (QC): 6 Toilet Transfer (QC): 6 Other Treatment Pt up in recliner, agreeable to OT Tx with focus on shower. Pt's nurse requests to hold off on shower until after IV antibiotics are given. In order to increase BUE Strength and activity tolerance, pt completed BUE reaching task with pegboard. Pt able to place/remove x100 pegs into foam pegboard, primarily using LUE due to IV antibiotics in R hand site. Pt's nurse present to unhook IV, then pt used FWW to transfer into bathroom. Pt completed showering, dressing, toileting, etc in bathroom, independently. Pt returned to recliner. Post tx, pt in recliner, call light in reach and all needs met. Education OT Patient Education: Correct positioning, Energy conservation, Modified ADL techniques, Progress toward Goal/Update tx plan, Purpose of tx/functional activities, Rehab process Teaching Recipient: Patient Teaching Methods: Discussion Response to Teaching: Verbalize Understanding OT Short Term Goals Short Term Goals Time Frame: May 01, 2022 Shower/bathe self: 5 Upper body dressin Lower body dressin Putting on/taking off footwear: 5 OT Correction Goals Round Up Ring Hand Goals Time Frame: May 17, 2022 Acute change in mental status: 0 Inattention: 0 Disorganized thinkin Altered level of consciousness: 0 Eating (QC): 6 (met) Oral Hygiene (QC): 6 (met) Toileting Hygiene (QC): 6 (met) Shower/Bathe Self (QC): 6 (met) Upper Body Dressing (QC): 6 (met) Lower Body Dressing (QC): 6 (met) On/Off Footwear (QC): 6 (met) Additional Goals: 1-Demonstrate ADL Tasks, 2-Verbalize Understanding, 3- ImproveStrength/Larry 1=Demonstrate adherence to instructed precautions during ADL tasks. 2=Patient will verbalize/demonstrate understanding of assistive devices/modifications for ADL. 3=Patient will improve strength/tolerance for activity to enable patient to perform ADL's. OT Education/Plan Problem List/Assessment Assessment: Decreased Activ Tolerance, Decreased UE Strength, Impaired I ADL's Discharge Recommendations Plan/Recommendations: Continue POC Treatment Plan/Plan of Care Patient would benefit from OT for education, treatment and training to promote independence in ADL's, mobility, safety and/or upper extremity function for ADL's. Plan of Care: ADL Retraining, Functional Mobility, Group Exercise/Act as Ind, UE Funct Exercise/Act Treatment Duration: May 17, 2022 Frequency: At least 5 of 7 days/Wk (IRF) Estimated Hrs Per Day: 1.5 hours per day Agreement: Yes Rehab Potential: Good Time Start Time: 09:55 Stop Time: 11:25 DATE: May 01, 2022 Total Time Billed (hr/min): 90 Billed Treatment Time 1, FA 3 (45'), ADL 3 (45') JESS REY OT May 01, 2022 10:17
[2022-05-01] MEDS: BIOFREEZE GEL TP PRN ×3 (10:48→21:27)
[2022-05-01 19:24] VITALS: BP 128/60
[2022-05-02] MEDS: oxyCODONE/APAP 5/325MG (PERCOCET 5) TABLET PO PRN ×2 (02:41→10:32)
[2022-05-02] MEDS: BIOFREEZE GEL TP PRN ×2 (02:41→10:32)
--- NOTE | 2022-05-02 05:29 | Discharge Summary ---
Diagnosis/Chief Complaint Date of Admission Apr 25, 2022 at 11:00 Date of Discharge Discharge Date: May 02, 2022 Discharge Diagnosis Assessment: Debility E coli bacteremia maintained on Rocephin HADLEY on CPAP HTN HLP AF UTI OA Chronic pain Plan: Pain control IV abx Monitor closely BM regimen PT OT 04/26/2022: Supportive care Rocephin 04/27/2022: Pain control Try to resolve apathy 04/28/2022: Xray tomorrow Monitor pain Kpad 04/29/2022: Xray reviewed 04/30/2022: Pain control Xray reviewed w/patient 05/01/2022: DC tomorrow (1) Debility Discharge Summary Discharge Physical Examination Allergies: Coded Allergies: No Known Drug Allergies (Unverified , 04/25/22) Vitals & I&Os Vital Signs Date Time Temp Pulse Resp B/P (MAP) Pulse Ox O2 Delivery O2 Flow Rate FiO2 05/02/22 09:00 Room Air 05/02/22 07:44 36.4 80 20 106/62 (77) 95 General Appearance: Alert, Oriented X3, Cooperative Respiratory: Clear to Auscultation Cardiovascular: Regular Rate Psych/Mental Status: Mental Status NL Hospital Course Was the Problem List Reviewed?: Yes Hospital Course: Mary Saunders is an 81yo F clinic patient of [facility] who has a h/o AF and HADLEY on CPAP who presented to the ARU 04/25/22 following a hospital course at [facility] where she was admitted for sepsis from UTI and ultimately revealed E coli bacteremia sensitive to Rocephin. Patient feels much better today. Bowels are moving. PLOF was independent with all ADL's and no use of AD. Patient maintained on OAC. Mary entered the ARU with moderate debility and need of strengthening. She entered with low appetite and history of malnourishment, where a meal plan was then made for her. She handled her PT/OT treatments well, eating and passing stools consistently, though she continued to complain of lower lumbar back pain b/l. X-ray images were then taken 04/29/22 revealing sever DJD. Her continued improvement led to a plan for DC being established for 05/01/22 where she will be released with her family and continue to recover at home. Labs (last 24 hrs) Laboratory Tests 04/26/22 05:55: White Blood Count 8.0, Red Blood Count 3.29L, Hemoglobin 8.1L, Hematocrit 27L, Mean Corpuscular Volume 81, Mean Corpuscular Hemoglobin 25, Mean Corpuscular Hemoglobin Concent 31L, Red Cell Distribution Width 17.9H, Platelet Count 262, Mean Platelet Volume 10.7, Immature Granulocyte % (Auto) 2, Neutrophils (%) (Auto) 74, Lymphocytes (%) (Auto) 15, Monocytes (%) (Auto) 8, Eosinophils (%) (Auto) 1, Basophils (%) (Auto) 0, Neutrophils # (Auto) 5.9, Lymphocytes # (Auto) 1.2, Monocytes # (Auto) 0.6, Eosinophils # (Auto) 0.1, Basophils # (Auto) 0.0, Immature Granulocyte # (Auto) 0.1, Sodium Level 137, Potassium Level 4.0, Chloride Level 104, Carbon Dioxide Level 22, Anion Gap 11, Blood Urea Nitrogen 14, Creatinine 0.70, Estimat Glomerular Filtration Rate 87, BUN/Creatinine Ratio 20, Glucose Level 118H, Calcium Level 8.1L, Corrected Calcium 9.2, Total Bilirubin 0.8, Aspartate Amino Transf (AST/SGOT) 30, Alanine Aminotransferase (ALT/SGPT) 16, Alkaline Phosphatase 86, Total Protein 6.0L, Albumin 2.6L 04/26/22 10:37: Iron Level 25L, Vitamin B12 Level >2000H 04/29/22 05:40: White Blood Count 7.9, Red Blood Count 3.35L, Hemoglobin 8.0L, Hematocrit 28L, Mean Corpuscular Volume 83, Mean Corpuscular Hemoglobin 24L, Mean Corpuscular Hemoglobin Concent 29L, Red Cell Distribution Width 18.9H, Platelet Count 412H, Mean Platelet Volume 9.9, Immature Granulocyte % (Auto) 2, Neutrophils (%) (Auto) 65, Lymphocytes (%) (Auto) 23, Monocytes (%) (Auto) 8, Eosinophils (%) (Auto) 1, Basophils (%) (Auto) 1, Neutrophils # (Auto) 5.1, Lymphocytes # (Auto) 1.8, Monocytes # (Auto) 0.6, Eosinophils # (Auto) 0.1, Basophils # (Auto) 0.1, Immature Granulocyte # (Auto) 0.1, Sodium Level 136, Potassium Level 4.1, Chloride Level 102, Carbon Dioxide Level 26, Anion Gap 8, Blood Urea Nitrogen 11, Creatinine 0.77, Estimat Glomerular Filtration Rate 77, BUN/Creatinine Ratio 14, Glucose Level 122H, Calcium Level 8.3L, Corrected Calcium 9.3, Total Bilirubin 0.6, Aspartate Amino Transf (AST/SGOT) 30, Alanine Aminotransferase (ALT/SGPT) 15, Alkaline Phosphatase 83, Total Protein 6.2L, Albumin 2.7L Pending Labs Laboratory Tests 04/26/22 05:55: White Blood Count 8.0, Red Blood Count 3.29, Hemoglobin 8.1, Hematocrit 27, Mean Corpuscular Volume 81, Mean Corpuscular Hemoglobin 25, Mean Corpuscular Hemoglobin Concent 31, Red Cell Distribution Width 17.9, Platelet Count 262, Mean Platelet Volume 10.7, Immature Granulocyte % (Auto) 2, Neutrophils (%) (Auto) 74, Lymphocytes (%) (Auto) 15, Monocytes (%) (Auto) 8, Eosinophils (%) (Auto) 1, Basophils (%) (Auto) 0, Neutrophils # (Auto) 5.9, Lymphocytes # (Auto) 1.2, Monocytes # (Auto) 0.6, Eosinophils # (Auto) 0.1, Basophils # (Auto) 0.0, Immature Granulocyte # (Auto) 0.1, Sodium Level 137, Potassium Level 4.0, Chloride Level 104, Carbon Dioxide Level 22, Anion Gap 11, Blood Urea Nitrogen 14, Creatinine 0.70, Estimat Glomerular Filtration Rate 87, BUN/Creatinine Ratio 20, Glucose Level 118, Calcium Level 8.1, Corrected Calcium 9.2, Total Bilirubin 0.8, Aspartate Amino Transf (AST/SGOT) 30, Alanine Aminotransferase (ALT/SGPT) 16, Alkaline Phosphatase 86, Total Protein 6.0, Albumin 2.6 04/26/22 10:37: Iron Level 25, Vitamin B12 Level >2000 04/29/22 05:40: White Blood Count 7.9, Red Blood Count 3.35, Hemoglobin 8.0, Hematocrit 28, Mean Corpuscular Volume 83, Mean Corpuscular Hemoglobin 24, Mean Corpuscular Hemoglobin Concent 29, Red Cell Distribution Width 18.9, Platelet Count 412, Mean Platelet Volume 9.9, Immature Granulocyte % (Auto) 2, Neutrophils (%) (Auto) 65, Lymphocytes (%) (Auto) 23, Monocytes (%) (Auto) 8, Eosinophils (%) (Auto) 1, Basophils (%) (Auto) 1, Neutrophils # (Auto) 5.1, Lymphocytes # (Auto) 1.8, Monocytes # (Auto) 0.6, Eosinophils # (Auto) 0.1, Basophils # (Auto) 0.1, Immature Granulocyte # (Auto) 0.1, Sodium Level 136, Potassium Level 4.1, Chloride Level 102, Carbon Dioxide Level 26, Anion Gap 8, Blood Urea Nitrogen 11, Creatinine 0.77, Estimat Glomerular Filtration Rate 77, BUN/Creatinine Ratio 14, Glucose Level 122, Calcium Level 8.3, Corrected Calcium 9.3, Total Bilirubin 0.6, Aspartate Amino Transf (AST/SGOT) 30, Alanine Aminotransferase (ALT/SGPT) 15, Alkaline Phosphatase 83, Total Protein 6.2, Albumin 2.7 Discharge Home Medications: Active Scripts Active Cefdinir 300 Mg Capsule 300 Mg PO BID Oxycodone-Acetaminophen 5-325 (Oxycodone HCl/Acetaminophen) 5 Mg-325 Mg Tablet 1 Each PO Q6H PRN MDD 6 Cyclobenzaprine HCl 10 Mg Tablet 10 Mg PO Q8H PRN Vitamin B-12 (Cyanocobalamin (Vitamin B-12)) 1,000 Mcg Tablet 1,000 Mcg PO DAILY Reported Xarelto Tablet (Rivaroxaban) 20 Mg Tablet 20 Mg PO DAILY Metoprolol Succinate 50 Mg Tab.er.24h 50 Mg PO DAILY Levothyroxine Sodium 100 Mcg Tablet 100 Mcg PO DAILY Instructions to patient/family Please see electronic discharge instructions given to patient. Diagnosis/Problems Diagnosis/Problems (1) Debility JEYSON SHEFFIELD DO May 02, 2022 05:29
[2022-05-02] MEDS: CATHETER FLUSH 10 ML SYR IVP SCH (06:11)
[2022-05-02] MEDS: LEVOTHYROXINE 100 MCG (LEVOTHROID) TAB PO SCH (06:11)
[2022-05-02 07:44] VITALS: BP 106/62
[2022-05-02] MEDS: RIVAROXABAN 20 MG TABLET (XARELTO) PO SCH (08:11)
[2022-05-02] MEDS: SENNA W/DOCUSATE (SENOKOT S) TABLET PO SCH (08:12)
[2022-05-02] MEDS: meTOproloL SUCCINATE 50 MG (TOPROL XL) TAB PO SCH (08:12)
[2022-05-02] MEDS: DOCUSATE SODIUM 100 MG (COLACE) CAP PO SCH (08:12)
[2022-05-02] MEDS: CYANOCOBALAMIN 1,000 MCG (VITAMIN B-12) TABLET PO SCH (08:12)
[2022-05-02] MEDS: polyethylene glycoL POWDER 17 GM (MIRALAX) PACK PO SCH (08:13)
[2022-05-02] MEDS: cefTRIAXone 1 GM/50 ML (PRE-MIX) IV SCH (08:26)
--- NOTE | 2022-05-02 09:10 | Therapy Team Discharge Summary ---
Therapy Discharge Summary Discharge Recommendations Date of Discharge Physical Therapy Patient admitted to the ARU on Apr 25, 2022 with a diagnosis of debility. She is currently independent with all bed mobility, transfers and gait for 150 feet x 2 with one seated rest break. Patient is able to ascend/descend 12 steps with SBA. Patient has demonstrated significant overall improvement with demonstrates good potential to continue to progress with continued activity in a homehealth or outpatient setting. Roll Left to Right (QC): 6 Sit to Lying (QC): 6 Lying to Sitting/Side of Bed(Q: 6 Sit to Stand (QC): 6 Chair/Ejn-oh-Drqyr Xfer(QC): 6 Toilet Transfer (QC): 6 Car Transfer (QC): 6 Does the Patient Walk: Yes Mode of Locomotion: Walk Anticipated Mode of Locomotion: Walk Walk 10 feet (QC): 6 Walk 50 ft with 2 Turns(QC): 6 Walk 150 ft (QC): 6 Walking 10ft on uneven surface: 6 Distance: 150'x2 Gait Assistive Device: FWW Does the Pt Use a Wheelchair: No Wheel 50 ft with 2 turns (QC): 9 Wheel 150 ft (QC): 9 #of Steps: 12 1 Step (curb) (QC): 4 4 Steps (QC): 4 12 Steps (QC): 4 Walking Assistive Device: Walker Balance Sitting Static: Normal Balance Sitting Dynamic: Normal Balance-Standing Static: Normal Picking up an Object (QC): 6 Occupational Therapy Decreased Activ Tolerance, Decreased UE Strength, Impaired I ADL's Eating (QC): 6 Oral Hygiene (QC): 6 Shower/Bathe Self (QC): 6 Upper Body Dressing (QC): 6 Lower Body Dressing (QC): 6 On/Off Footwear (QC): 6 (IND slip on shoes, pt would require min A with socks due to back pain.) Toileting Hygiene (QC): 6 PT Mcc Goals Mcc Goals PT Mcc Goals Time Frame: May 09, 2022 Roll Left to Right (QC): 6 Sit to Lying (QC): 6 Lying-Sitting on Side/Bed(QC): 6 Sit to Stand (QC): 6 Chair/Glw-bv-Qsqza Xfer(QC): 6 Toilet/Commode Transfer (QC): 6 Car Transfer (QC): 6 Does the Patient Walk: Yes Walk 10 feet (QC): 6 Walk 10ft-Uneven Surface(QC): 6 Walk 50ft with 2 Turns (QC): 6 Walk 150 ft (QC): 6 Wheel 50 feet with 2 turns (QC: 9 Wheel 150 feet: 9 1 Step (curb) (QC): 4 (SBA) 4 Steps (QC): 4 (SBA) 12 Steps (QC): 88 Picking up an Object (QC): 6 (using radiator repairer) OT Order Dispatcher Goals Order Dispatcher Goals Time Frame: May 17, 2022 Acute change in mental status: 0 Inattention: 0 Disorganized thinkin Altered level of consciousness: 0 Eating (QC): 6 (met) Oral Hygiene (QC): 6 (met) Toileting Hygiene (QC): 6 (met) Shower/Bathe Self (QC): 6 (met) Upper Body Dressing (QC): 6 (met) Lower Body Dressing (QC): 6 (met) On/Off Footwear (QC): 6 (met) Additional Goals: 1-Demonstrate ADL Tasks, 2-Verbalize Understanding, 3- ImproveStrength/Larry 1=Demonstrate adherence to instructed precautions during ADL tasks. 2=Patient will verbalize/demonstrate understanding of assistive devices/m odifications for ADL. 3=Patient will improve strength/tolerance for activity to enable patient to perform ADL's. RAMSEY VYAS PT May 02, 2022 09:10
--- NOTE | 2022-05-02 11:17 | D/C HH Face to Face Order ---
D/C Face to Face Orders Reconcile Patient Problems Problems Reviewed?: Yes Instructions for Patient Via [facility], Patient Instructions/FollowUp: pcp 1 week Physician to follow Patient: chc Discharge Diet for Home: No Restrictions Patient Problems: debility Patient Data-Allergies,Ht & Wt Patient Allergies: Coded Allergies: No Known Drug Allergies (Unverified , 04/25/22) Home Health Need/Face to Face Date of Face to Face: May 02, 2022 Clinical Findings: Muscle weakness, Unsteady gait I have seen Pt qctt-hs-jhdj: Yes Discharged To: Home Diagnosis/Conditions: debility Patient is Homebound due to: Muscle weakness Homebound Status Due to the above stated illness, injury or surgical procedure (medical condition or diagnosis) and associated clinical findings, the patient is homebound because of his/her inability to leave home except with aid of a supportive device and/or person AND leaving the home requires a considerable and taxing effort or is medically contraindicated. Pt req the following assistanc: Walker Home Health Nursing Orders Home Health Services Order: Nursing Services, Machine Sole Leveler-Evaluate & Treat, Physical Therapy-Evaluate & Treat Home Health Infusion Therapy Line Start Date: Apr 27, 2022 Certify Stmt I certify that this patient is under my care and that I, a nurse practitioner or a physician; a clinical assistant working with me, had a face to face encounter that -me ets the physician face to face encounter requirements with this patient as dated. JEYSON SHEFFIELD DO May 02, 2022 11:17
--- NOTE | 2022-05-03 09:39 | Therapy Team Discharge Summary ---
Therapy Discharge Summary Discharge Recommendations Date of Discharge May 02, 2022 at 11:55 Physical Therapy Roll Left to Right (QC): 6 Sit to Lying (QC): 6 Lying to Sitting/Side of Bed(Q: 6 Sit to Stand (QC): 6 Chair/Tli-wk-Cphbh Xfer(QC): 6 Toilet Transfer (QC): 6 Car Transfer (QC): 6 Does the Patient Walk: Yes Mode of Locomotion: Walk Anticipated Mode of Locomotion: Walk Walk 10 feet (QC): 6 Walk 50 ft with 2 Turns(QC): 6 Walk 150 ft (QC): 6 Walking 10ft on uneven surface: 6 Distance: 150'x2 Gait Assistive Device: FWW Does the Pt Use a Wheelchair: No Wheel 50 ft with 2 turns (QC): 9 Wheel 150 ft (QC): 9 #of Steps: 12 1 Step (curb) (QC): 4 4 Steps (QC): 4 12 Steps (QC): 4 Walking Assistive Device: Walker Balance Sitting Static: Normal Balance Sitting Dynamic: Normal Balance-Standing Static: Normal Picking up an Object (QC): 6 Occupational Therapy Pt admitted to ARU with debility. At [facility], pt was independent with ADLS and functional mobility without AD. Upon initial evaluation, pt was independent with eating and footwear, required set up with oral care and UE dressing, and SBA with showering, LE dressing, and toileting. OT tx focused on increasing BUE strength and activity and increasing safety and independence with ADLS and functional mobility. Pt made good progress towards goals, meeting IND with all ADLS. Pt discharged home, d/c from OT. Decreased Activ Tolerance, Decreased UE Strength, Impaired I ADL's Eating (QC): 6 Oral Hygiene (QC): 6 Shower/Bathe Self (QC): 6 Upper Body Dressing (QC): 6 Lower Body Dressing (QC): 6 On/Off Footwear (QC): 6 (IND slip on shoes, pt would require min A with socks due to back pain.) Toileting Hygiene (QC): 6 PT Nursing Home Goals Nursing Home Goals PT Jig Box Operator Goals Time Frame: May 09, 2022 Roll Left to Right (QC): 6 Sit to Lying (QC): 6 Lying-Sitting on Side/Bed(QC): 6 Sit to Stand (QC): 6 Chair/Wvz-je-Yqdro Xfer(QC): 6 Toilet/Commode Transfer (QC): 6 Car Transfer (QC): 6 Does the Patient Walk: Yes Walk 10 feet (QC): 6 Walk 10ft-Uneven Surface(QC): 6 Walk 50ft with 2 Turns (QC): 6 Walk 150 ft (QC): 6 Wheel 50 feet with 2 turns (QC: 9 Wheel 150 feet: 9 1 Step (curb) (QC): 4 (SBA) 4 Steps (QC): 4 (SBA) 12 Steps (QC): 88 Picking up an Object (QC): 6 (using demurrage man) OT Nursing Home Goals Jig Box Operator Goals Time Frame: May 17, 2022 Acute change in mental status: 0 Inattention: 0 Disorganized thinkin Altered level of consciousness: 0 Eating (QC): 6 (met) Oral Hygiene (QC): 6 (met) Toileting Hygiene (QC): 6 (met) Shower/Bathe Self (QC): 6 (met) Upper Body Dressing (QC): 6 (met) Lower Body Dressing (QC): 6 (met) On/Off Footwear (QC): 6 (met) Additional Goals: 1-Demonstrate ADL Tasks, 2-Verbalize Understanding, 3- ImproveStrength/Larry 1=Demonstrate adherence to instructed precautions during ADL tasks. 2=Patient will verbalize/demonstrate understanding of assistive devices/modifications for ADL. 3=Patient will improve strength/tolerance for activity to enable patient to perform ADL's. JESS REY OT May 03, 2022 09:39
== END 2022-05-02 11:55 | disposition home health service (06) | DRG 947 ==
LOC: UNDODISIN 05-01 13:30
PROVIDERS: ADMIT Internal Medicine; ATTEND Internal Medicine
DX: R53.81 Other malaise (principal); A41.51 Sepsis due to Escherichia coli [E. coli]; N39.0 Urinary tract infection, site not specified; I48.91 Unspecified atrial fibrillation; G47.33 Obstructive sleep apnea (adult) (pediatric); E78.00 Pure hypercholesterolemia, unspecified; I10 Essential (primary) hypertension; K21.9 Gastro-esophageal reflux disease without esophagitis; M19.91 Primary osteoarthritis, unspecified site; E03.9 Hypothyroidism, unspecified; Z79.01 Long term (current) use of anticoagulants; G89.29 Other chronic pain
CPT/HCPCS: 36415; 72100; 80053; 82607; 83540; 85025

== ENCOUNTER 2022-05-31 15:22 | Inpatient (IN) | payer MEDICARE ==
[~2022-05-31] VITALS: Ht 160 cm; Wt 102.7 kg
[~2022-05-31 15:22] MED LIST: CEFD300C3 PO; CFTR1PB IV; CYAN-41 PO; CYCL10TA25 PO; LEVO100T7 PO; METO50TA7 PO; OXYC1TAB11 PO; RIVA20TA2 PO
[2022-05-31] MEDS ORDERED: LACTULOSE SYRUP 10GM/15ML (ENULOSE) 30ML UDC PO PRN (17:00)
[2022-05-31] MEDS ORDERED: BISACODYL 10 MG SUPP (DULCOLAX) PR PRN (17:00)
[2022-05-31] MEDS ORDERED: NS IV 500 ML 500 ML IV PRN (17:00)
[2022-05-31] MEDS ORDERED: CALCIUM CARBONATE 500 MG (TUMS) TAB.CHEW PO PRN (17:00)
[2022-05-31] MEDS ORDERED: diphenhydrAMINE 25 MG TAB (BENADRYL) PO PRN (17:00)
[2022-05-31] MEDS ORDERED: ONDANSETRON 4 MG (ZOFRAN) ORAL DISSOLVE TAB PO PRN (17:00)
[2022-05-31] MEDS ORDERED: MELATONIN 3 MG TABLET PO PRN (17:00)
[2022-05-31] MEDS ORDERED: polyethylene glycoL POWDER 17 GM (MIRALAX) PACK PO PRN (17:00)
[2022-05-31] MEDS ORDERED: ANTACID SUSP 30 ML UDC (MYLANTA) PO PRN (17:00)
[2022-05-31] MEDS ORDERED: MILK OF MAGNESIA 400 MG/5 ML 30 ML UDC PO PRN (17:00)
[2022-05-31] MEDS ORDERED: ONDANSETRON 4 MG/2 ML (SDV) Z0FRAN IV PRN (17:00)
[2022-05-31] MEDS ORDERED: diphenhydrAMINE 50 MG/ML INJ (BENADRYL) IVP PRN (17:00)
--- NOTE | 2022-05-31 17:28 | Tele-ICU Progress Note ---
Subjective Date Seen by a Provider: May 31, 2022 Subjective/Events-last exam This virtual visit was conducted using real time audio/video. Thank you for asking us to see this patient for septic shock, source unknown Recent events: transferred from [place], NO signout from [facility] DEUTSCH PMH: CRF, HADLEY/CPAP, Afib, HL, HTN, GERD, LBP, hypothy. SH: smoking history: former PE: Pale, obese, comfortable. VSS. 118/70 HR 80 afib. O2 sat 94% on RA HEENT: No obvious masses, adenopathy or JVD. Chest: clear to auscultation. CV:Irreg S1 S2 No murmur or added sounds. Abd: Non-tender. Bowel sounds Y. : Unremarkable. [place] Y. PERSONAL CARER/psychiatric: Grossly intact. No obvious focal findings. Extremities: No edema. Capillary refill < 3 seconds. Skin: unremarkable. Results:pending Available chart/ vitals / labs / images reviewed. Video assessment done using teleICU camera, rest of exam as per RN. A/P: . Critical Care: critically ill patient. Cont. IVF, abx, Levophed Discussed with KATT Sheriff. Asked RN to reach out to eICU if any questions or concerns later. Time spent with patient/coordination of care with other health professionals (mins): 20 Sepsis Event Evaluation Height, Weight, BMI Height: '" Weight: lbs. oz. kg; 40.03 BMI Method: Exam Exam Patient acknowledged, consented, and participated in this virtual visit which was conducted using real time audio/video Height & Weight Height: '" Weight: lbs. oz. kg; 40.03 BMI Method: General Appearance: No Apparent Distress, Obese Respiratory: Lungs Clear Peripheral Pulses: 1+ Dorsalis Pedis (R), 1+ Left Dors-Pedis (L) Assessment/Plan Assessment/Plan See free text Critical Care: Critically Ill Patient JESSENIA PITTS MD May 31, 2022 17:28
[2022-05-31 18:06] LABS: BASOPHILS # (AUTO) 0.1 10^3/uL (0.0-0.1); BASOPHILS % (AUTO) 0 % (0-10); EOSINOPHILS % (AUTO) 0 % (0-10); HEMATOCRIT 34 % (35-52); HEMOGLOBIN 10.4 g/dL (11.5-16.0); LYMPHOCYTES # (AUTO) 1.1 10^3/uL (1.0-4.0); LYMPHOCYTES % (AUTO) 4 % (12-44); MEAN CORPUSCULAR HEMOGLOBIN 27 pg (25-34); MEAN CORPUSCULAR HGB CONC 30 g/dL (32-36); MEAN CORPUSCULAR VOLUME 89 fL (80-99); MEAN PLATELET VOLUME 9.4 fL (9.0-12.2); MONOCYTES # (AUTO) 0.6 10^3/uL (0.0-1.0); MONOCYTES % (AUTO) 2 % (0-12); NEUTROPHILS # (AUTO) 24.1 10^3/uL (1.8-7.8); NEUTROPHILS % (AUTO) 91 % (42-75); PLATELET COUNT 206 10^3/uL (130-400); WHITE BLOOD COUNT 26.5 10^3/uL (4.3-11.0)
[2022-05-31 18:12] LABS: ALBUMIN 2.7 GM/DL (3.2-4.5); POTASSIUM 4.2 MMOL/L (3.6-5.0)
[2022-05-31 18:14] LABS: CALCIUM 8.7 MG/DL (8.5-10.1)
[2022-05-31 18:15] LABS: TOTAL PROTEIN 6.5 GM/DL (6.4-8.2)
[2022-05-31 18:17] LABS: BILIRUBIN,TOTAL 1.1 MG/DL (0.1-1.0)
[2022-05-31 18:18] LABS: CREATININE SERUM 1.02 MG/DL (0.60-1.30)
[2022-05-31] MEDS: CEFEPIME INJECTION 1,000 MG in NS (IVPB) 50 ML IV SCH (18:47)
[2022-05-31] MEDS: NOREPINEPHRINE 8 MG/250 ML 250 ML IV SCH (18:49)
[2022-05-31 18:59] LABS: BAND NEUTROPHILS 8 %; LYMPHOCYTES % (MANUAL) 3 %; MONOCYTES % (MANUAL) 3 %; NEUTROPHILS % (MANUAL) 86 %
[2022-05-31 19:00] LABS: ANISOCYTOSIS MARKED; BASOPHILS % (MANUAL) 0 %; EOSINOPHILS % (MANUAL) 0 %; POLYCHROMASIA SLIGHT
[2022-05-31] MEDS: LACTATED RINGERS 1,000 ML IV SCH (19:20)
[2022-05-31] MEDS: SENNOSIDES 8.6 MG (SENOKOT) TAB PO SCH (22:02)
[2022-05-31] MEDS: DOCUSATE SODIUM 100 MG (COLACE) CAP PO SCH (22:02)
[2022-05-31] MEDS: ACETAMINOPHEN 325 MG TABLET PO PRN (23:52)
[2022-06-01] MEDS: CEFEPIME INJECTION 1,000 MG in NS (IVPB) 50 ML IV SCH ×3 (01:46→17:31)
[2022-06-01] MEDS: NOREPINEPHRINE 8 MG/250 ML 250 ML IV SCH ×2 (03:00→17:20)
[2022-06-01 04:47] LABS: BASOPHILS # (AUTO) 0.1 10^3/uL (0.0-0.1); BASOPHILS % (AUTO) 0 % (0-10); EOSINOPHILS # (AUTO) 0.1 10^3/uL (0.0-0.3); EOSINOPHILS % (AUTO) 0 % (0-10); HEMATOCRIT 32 % (35-52); HEMOGLOBIN 9.7 g/dL (11.5-16.0); LYMPHOCYTES # (AUTO) 1.3 10^3/uL (1.0-4.0); LYMPHOCYTES % (AUTO) 6 % (12-44); MEAN CORPUSCULAR HEMOGLOBIN 27 pg (25-34); MEAN CORPUSCULAR HGB CONC 31 g/dL (32-36); MEAN CORPUSCULAR VOLUME 87 fL (80-99); MEAN PLATELET VOLUME 9.5 fL (9.0-12.2); MONOCYTES # (AUTO) 0.8 10^3/uL (0.0-1.0); MONOCYTES % (AUTO) 4 % (0-12); NEUTROPHILS # (AUTO) 19.3 10^3/uL (1.8-7.8); NEUTROPHILS % (AUTO) 89 % (42-75); PLATELET COUNT 219 10^3/uL (130-400); WHITE BLOOD COUNT 21.8 10^3/uL (4.3-11.0)
[2022-06-01 05:18] LABS: CALCIUM 8.5 MG/DL (8.5-10.1); CREATININE SERUM 0.79 MG/DL (0.60-1.30); MAGNESIUM 2.2 MG/DL (1.6-2.4); POTASSIUM 4.2 MMOL/L (3.6-5.0)
[2022-06-01] MEDS: POTASSIUM CL 10MEQ/50ML IVPB 50 ML IV SCH (05:55)
[2022-06-01] MEDS: KCL 20 MEQ TAB (K-DUR) PO SCH (05:55)
[2022-06-01] MEDS: MAGNESIUM 1 GM/100 ML IVPB 100 ML IV SCH (05:55)
[2022-06-01] MEDS: ACETAMINOPHEN 325 MG TABLET PO PRN ×2 (06:15→10:24)
[2022-06-01] MEDS: LACTATED RINGERS 1,000 ML IV SCH ×3 (07:41→21:22)
--- NOTE | 2022-06-01 08:37 | Diagnostic Imaging Report ---
EXAM: CHEST 1 VIEW, AP/PA ONLY. INDICATION: Sepsis. COMPARISON: None. FINDINGS: Elevation of the right hemidiaphragm. Cardiomegaly with mild pulmonary vascular congestion. Implantable loop recorder. Cardiac pacer. Right IJ CVC tip low SVC. No pleural effusion or pneumothorax. No acute osseous findings. IMPRESSION: Cardiomegaly with mild pulmonary vascular congestion. Dictated by: Dictated on workstation # [id number]
[2022-06-01] MEDS ORDERED: VIT1CAPS44 PO (09:08)
[2022-06-01] MEDS ORDERED: ACET-2267 PO (09:08)
[2022-06-01] MEDS ORDERED: NAPR-915 PO (09:08)
[2022-06-01] MEDS ORDERED: ESCI5TAB PO (09:08)
[2022-06-01] MEDS ORDERED: BUPR1PAT2 TD (09:08)
[2022-06-01] MEDS ORDERED: CALC-78 PO (09:08)
[2022-06-01] MEDS ORDERED: CHOL200074 PO (09:08)
[2022-06-01] MEDS ORDERED: LIDO1ADH78 TP (09:08)
[2022-06-01] MEDS: SENNOSIDES 8.6 MG (SENOKOT) TAB PO SCH ×2 (09:10→20:11)
[2022-06-01] MEDS: DOCUSATE SODIUM 100 MG (COLACE) CAP PO SCH ×2 (09:11→20:11)
[2022-06-01] MEDS: morphine INJ 4 MG/ML 1 ML (VIAL/SYRINGE) IVP PRN ×2 (10:53→16:58)
[2022-06-01] MEDS ORDERED: NS 100 ML (IVPB) BAG IV ONE (11:15)
[2022-06-01] MEDS ORDERED: IOHEXOL 350 MG/ML 100 ML (OMNIPAQUE 350) VIAL IV ONE (11:15)
[2022-06-01] MEDS ORDERED: HOLD METFORMIN - RECEIVED CONTRAST 20 ML VIAL IV SCH (11:15)
--- NOTE | 2022-06-01 11:48 | Diagnostic Imaging Report ---
PROCEDURE: CT thoracic and lumbar spine with and without contrast. TECHNIQUE: CT imaging of the thoracic and lumbar spine before and after the administration of intravenous contrast. Auto Exposure Controls were utilized during the CT exam to meet ALARA standards for radiation dose reduction. INDICATION: Sepsis and back pain. FINDINGS: CT THORACIC SPINE: The curvature and alignment of the thoracic spine are normal. The vertebral body heights are well-maintained. No acute compression fracture is identified. Evaluation for discitis or vertebral osteomyelitis is limited with CT; however, no definite endplate destruction or erosive changes are seen. The paraspinous tissues are unremarkable for fluid collection or abscess. 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 There appear to be multiple intrarenal nonobstructing calculi in the left kidney. CT LUMBAR SPINE: There is normal lordotic curvature. There is retrolisthesis of L3 on L4. There is central compression involving the L4 vertebral body, age indeterminate. A vacuum disc is noted at the L3-L4 and L4-L5 levels. The paraspinous tissues are unremarkable. There is severe multilevel degenerative disc disease with variable disc space narrowing and marginal spurring. No enhancing mass or fluid collection is identified. IMPRESSION: Severe lumbar spondylosis. There appears to be a central compression deformity of the L4 vertebral body which appears acute or subacute. No other compression fractures are seen. No other significant abnormality is detected. Dictated by: Dictated on workstation # [id number]
--- NOTE | 2022-06-01 12:27 | Tele-ICU Progress Note ---
Subjective Date Seen by a Provider: Jun 01, 2022 Time Seen by a Provider: 11:02 Subjective/Events-last exam (Tele-ICU Physician , consultation) Available chart/ vitals / labs / Images reviewed H&P is from ER notes Patient's information available about PMH, allergy reviewed in EMR. ROS as per chart and RN report Video assessment done using teleICU camera, rest of exam as per RN Discussed with RN. She is a 82-year-old female has a history of recent urinary tract infection caused by E. coli and also chronic back pain with a poor appetite apparently she was treated and released from this hospital earlier in April09/12/2021. She was living with her daughter at home and she went to the [facility] according to her daughter and see if she is slumped over and she was taken to the [facility] where she was found to have a hypotension requiring Levophed hence she is transferred to [facility]. Now she is feeling somewhat better and she is taken off the Levophed. Not much information available in the computer for this admission I have reviewed her previous admission and obtain some history and discussed with the patient's daughter who is in room. Apparently her pain doctor ordered an MRI of the back for chronic back pain but in view of her pacemaker insertion it was not done yet awaiting to be confirmed that it is compatible with MRI. She is in no acute respiratory distress at this time. Impression 1. Suspected sepsis 2. Possible urinary tract infection recurrent 3. Chronic back pain rule out any discitis. 4. Poor appetite Recommendations 1. Continue IV hydration 2. Agree with CT scan of the lumbar and thoracic spine until we can get an MRI of the spine. Meanwhile we will continue cefepime and will add vancomycin until the CT of the spine results are available. 3. DVT prophylaxis and ulcer prophylaxis. 4. Management of pain per primary care. Coordination of care with bedside consultants and primary care. Sepsis Event Evaluation Height, Weight, BMI Height: '" Weight: lbs. oz. kg; 40.03 BMI Method: Focused Exam Lactate Level 05/31/22 17:56: Lactic Acid Level 1.22 Exam Exam Patient acknowledged, consented, and participated in this virtual visit which was conducted using real time audio/video Vital Signs Date Time Temp Pulse Resp B/P (MAP) Pulse Ox O2 Delivery O2 Flow Rate FiO2 06/01/22 12:00 80 16 117/70 (86) 92 Room Air 06/01/22 11:52 36.2 06/01/22 11:15 80 17 134/78 (96) 95 Room Air 06/01/22 10:00 80 31 125/75 (92) 93 Room Air 06/01/22 09:00 80 27 131/73 (92) 95 Room Air 06/01/22 08:00 80 30 135/76 (95) 95 Room Air 06/01/22 07:55 36.6 06/01/22 07:00 80 06/01/22 07:00 80 9 120/69 (86) 94 Room Air 06/01/22 06:00 80 22 113/67 (82) 94 Room Air 06/01/22 05:00 80 18 129/69 (89) 93 Room Air 06/01/22 04:00 79 23 104/60 (75) 97 Room Air 06/01/22 04:00 99 Room Air 06/01/22 03:00 80 06/01/22 03:00 80 22 104/60 (75) 97 Room Air 06/01/22 02:00 80 19 127/69 (88) 96 Room Air 06/01/22 01:00 80 06/01/22 01:00 80 19 104/61 (75) 95 Room Air 06/01/22 00:00 36.4 06/01/22 00:00 80 17 119/68 (85) 95 Room Air 05/31/22 23:59 99 Room Air 05/31/22 23:00 80 17 117/71 (86) 94 Room Air 05/31/22 22:00 80 21 117/69 (85) 95 Room Air 05/31/22 21:30 NIV CPAP 05/31/22 21:00 81 21 120/74 (89) 94 Room Air 05/31/22 20:00 99 Room Air 05/31/22 20:00 80 15 128/74 (92) 97 Room Air 05/31/22 20:00 36.6 05/31/22 19:00 80 05/31/22 19:00 79 21 118/72 (87) 96 Room Air 05/31/22 18:49 79 116/85 05/31/22 18:00 80 21 126/73 (90) 96 Room Air 05/31/22 17:33 80 05/31/22 17:00 80 11 118/69 (85) 97 Room Air 05/31/22 16:30 82 26 128/81 (97) 97 Room Air 05/31/22 16:25 93 Nasal Cannula 3.00 I & O 06/01/22 07:00 Intake Total 900 ml Output Total 900 ml Balance 0 ml Height & Weight Height: '" Weight: lbs. oz. kg; 40.03 BMI Method: General Appearance: No Apparent Distress, Obese Respiratory: Lungs Clear Peripheral Pulses: 1+ Dorsalis Pedis (R), 1+ Left Dors-Pedis (L) Results Lab Laboratory Tests 05/31/22 17:56 06/01/22 04:30 Assessment/Plan Assessment/Plan as above Critical Care: Critically Ill Patient Time spent with patient (mins): 25 ANA SIMMS MD Jun 01, 2022 12:27
[2022-06-01] MEDS ORDERED: VANCOMYCIN INJECTION 0.1 MG in NS (IVPB) 250 ML IV SCH (12:30)
[2022-06-01] MEDS ORDERED: VANCOMYCIN 2000 MG/NS 500 ML IVPB IV SCH ×2 (13:00)
--- NOTE | 2022-06-01 16:34 | History & Physical-Hospitalist ---
History of Present Illness HPI/Chief Complaint Carmen Saunders is an 82 year old female who presented to the [facility] ER with back pain and was found to be hypotensive. She has been admitted with sepsis and urinary tract infections a couple times recently. She denies fevers and chills. She denies shortness of breath and cough. She denies dysuria, frequency, and urgency. She denies headache, neck pain, and photophobia. She has back pain in her lower back on the right side. She denies rash. She denies lightheadedness and dizziness. She has not been on antibiotics since she completed a course of antibiotcs nearly a month ago for a urinary tract infection. Source: patient, family Exam Limitations: no limitations Date Seen 05/31/22 Time Seen by a Provider: 18:15 Attending Physician [facility] PCP Admitting Physician: Belinda Dominguez MD Attending Physician: Belinda Dominguez MD Referring Physician Date of Admission May 31, 2022 at 16:10 Home Medications & Allergies Home Medications Reviewed patient Home Medication Reconciliation performed by pharmacy medication reconciliations central sterile technician and/or nursing. Patients Allergies have been reviewed. Allergies Allergies Coded Allergies No Known Drug Allergies (Mnptxzeimm59/1/22) Past Uskxftu-Ijoker-Wnomzs Hx Patient Social History Tobacco Use?: No Smoking Status: Never a Smoker Smokeless Tobacco Frequency: Never a User Use of E-Cig and/or Vaping dev: No Use of E-Cig and/or Vaping Demarco: Never a User Substance use?: No Alcohol Use?: No Pt feels they are or have been: No Immunizations Up To Date Date of Influenza Vaccine: Mar 05, 2022 PED Vaccines UTD: No Seasonal Allergies Seasonal Allergies: Yes Current Status Advance Directives: Yes Advance Directive Location: Family to bring in copy Communicates: Verbally Primary Language: Nauruan Preferred Spoken Language: Nauruan Is interpretation needed?: No Implanted or [employer] D: CPAP, Pacemaker Past Medical History Surgeries: Breast, Joint Replacement Currently Using CPAP: Yes Currently Using BIPAP: No Atrial Fibrillation, High Cholesterol, Hypertension Sexually Transmitted Disease: No HIV/AIDS: No Bladder Infection Gastroesophageal Reflux Arthritis, Chronic Back Pain Hypothyroidsim Macular Degeneration Loss of Vision: Right Hearing Impairment: Denies Blood Disorders: No Adverse Reaction/Blood Tranf: No Family Medical History Cancer Review of Systems Constitutional: no symptoms reported Respiratory: no symptoms reported Cardiovascular: no symptoms reported Gastrointestinal: no symptoms reported Genitourinary: no symptoms reported Physical Exam Physical Exam Vital Signs Vital Signs - First Documented 05/31/22 05/31/22 16:25 16:30 Pulse 82 Resp 26 B/P (MAP) 128/81 (97) Pulse Ox 93 O2 Delivery Nasal Cannula O2 Flow Rate 3.00 Capillary Refill : Height, Weight, BMI Height: '" Weight: lbs. oz. kg; 40.03 BMI Method: General Appearance: No Apparent Distress, Obese HEENT: PERRL/EOMI, Pharynx Normal Neck: Normal Inspection, Supple Respiratory: Lungs Clear, No Respiratory Distress Cardiovascular: Regular Rate, Rhythm, No Murmur Gastrointestinal: Normal Bowel Sounds, Soft Extremity: Normal Inspection, Non Tender, No Pedal Edema Neurologic/Psychiatric: Alert, No Motor/Sensory Deficits Skin: Normal Color, Warm/Dry Results Results/Procedures Labs Laboratory Tests 05/31/22 17:56 06/01/22 04:30 Patient resulted labs reviewed. Imaging: Reviewed Imaging Report Assessment/Plan Admission Diagnosis Shock Admission Status: Inpatient Order (span 2 midnights) Reason for Inpatient Admission: IV pressors Assessment and Plan Shock MEGAN Back pain Possibly septic No infectious source identified Recurrent UTIs recently UA negative CXR negatve Blood cultures pending Started on Levophed Cefepime IV fluids Atrial fibrillation Hypothyroidism Continue home meds as able Critical Care Critically Ill Patient Diagnosis/Problems Diagnosis/Problems (1) Shock Status: Acute (2) MEGAN (acute kidney injury) Status: Acute (3) Back pain Status: Acute Qualifiers: Back pain location: low back pain Chronicity: acute Back pain laterality: right Sciatica presence: without sciatica Qualified Codes: M54.50 - Low back pain, unspecified (4) Obesity Status: Chronic (5) Paroxysmal atrial fibrillation Status: Chronic (6) Hypothyroidism Status: Chronic BELINDA DOMINGUEZ MD Jun 01, 2022 16:34
--- NOTE | 2022-06-01 16:45 | Progress Note - Hospitalist ---
Subjective HPI/CC On Admission Date Seen by Provider: Jun 01, 2022 Time Seen by Provider: 10:05 Carmen Saunders is an 82 year old female who presented to the [facility] ER with back pain and was found to be hypotensive. She has been admitted with sepsis and urinary tract infections a couple times recently. She denies fevers and chills. She denies shortness of breath and cough. She denies dysuria, frequency, and urgency. She denies headache, neck pain, and photophobia. She has back pain in her lower back on the right side. She denies rash. She denies lightheadedness and dizziness. She has not been on antibiotics since she completed a course of antibiotcs nearly a month ago for a urinary tract infection. Subjective/Events-last exam She continues to have back pain. She has no other complaints. She denies fevers. She denies shortness of breath. Focused Exam Lactate Level 05/31/22 17:56: Lactic Acid Level 1.22 Objective Exam Vital Signs Vital Signs Date Time Temp Pulse Resp B/P (MAP) Pulse Ox O2 Delivery O2 Flow Rate FiO2 06/01/22 16:20 36.3 06/01/22 16:00 80 18 119/71 (87) 95 Room Air 05/31/22 16:25 3.00 Capillary Refill : General Appearance: No Apparent Distress, Obese Respiratory: Lungs Clear, No Respiratory Distress Cardiovascular: Regular Rate, Rhythm, No Murmur Gastrointestinal: Normal Bowel Sounds, Soft Extremity: Normal Inspection, No Pedal Edema Neurologic/Psychiatric: Alert, No Motor/Sensory Deficits Skin: Normal Color, Warm/Dry Results/Procedures Lab Laboratory Tests 05/31/22 17:56 06/01/22 04:30 Patient resulted labs reviewed. Imaging: Reviewed Imaging Report Assessment/Plan Assessment and Plan Assess & Plan/Chief Complaint Septic shock Gram negative bacteremia Blood cultures with gram negative bacillus, discussed with micro at [facility] UA negative CXR negatve CT abdomen did not identify infectious source, non-obstructive nephrolithiasis Unclear source of bacteremia, likely urinary Off Levophed Cefepime IV fluids Lumbar spondolysis Compression fracture CT spine with severe spondolysis, L4 compression fracture Pain regimen Atrial fibrillation Hypothyroidism Continue home meds as able MEGAN, resolved Critical Care Critically Ill Patient Diagnosis/Problems Diagnosis/Problems (1) Septic shock Status: Acute (2) Gram-negative bacteremia Status: Acute (3) Spondylosis Status: Acute (4) Compression fracture of lumbar vertebra Status: Acute Qualifiers: Encounter type: initial encounter Lumbar vertebra fracture level: L4 Qualified Codes: S32.040A - Wedge compression fracture of fourth lumbar vertebra, initial encounter for closed fracture (5) MEGAN (acute kidney injury) Status: Acute (6) Back pain Status: Acute Qualifiers: Back pain location: low back pain Chronicity: acute Back pain laterality: right Sciatica presence: without sciatica Qualified Codes: M54.50 - Low back pain, unspecified (7) Obesity Status: Chronic (8) Paroxysmal atrial fibrillation Status: Chronic (9) Hypothyroidism Status: Chronic BELINDA DOMINGUEZ MD Jun 01, 2022 16:45
[2022-06-01] MEDS: VANCOMYCIN 1 GM/NS 250 ML IVPB IV SCH ×2 (21:26)
[2022-06-02] MEDS: CEFEPIME INJECTION 1,000 MG in NS (IVPB) 50 ML IV SCH ×3 (01:21→17:48)
[2022-06-02 03:47] LABS: BASOPHILS % (AUTO) 0 % (0-10); EOSINOPHILS # (AUTO) 0.1 10^3/uL (0.0-0.3); EOSINOPHILS % (AUTO) 1 % (0-10); HEMATOCRIT 31 % (35-52); HEMOGLOBIN 9.5 g/dL (11.5-16.0); LYMPHOCYTES # (AUTO) 1.3 10^3/uL (1.0-4.0); LYMPHOCYTES % (AUTO) 8 % (12-44); MEAN CORPUSCULAR HEMOGLOBIN 27 pg (25-34); MEAN CORPUSCULAR HGB CONC 31 g/dL (32-36); MEAN CORPUSCULAR VOLUME 87 fL (80-99); MEAN PLATELET VOLUME 9.2 fL (9.0-12.2); MONOCYTES # (AUTO) 0.9 10^3/uL (0.0-1.0); MONOCYTES % (AUTO) 6 % (0-12); NEUTROPHILS # (AUTO) 13.2 10^3/uL (1.8-7.8); NEUTROPHILS % (AUTO) 84 % (42-75); PLATELET COUNT 202 10^3/uL (130-400); WHITE BLOOD COUNT 15.7 10^3/uL (4.3-11.0)
[2022-06-02 03:56] LABS: POTASSIUM 4.1 MMOL/L (3.6-5.0)
[2022-06-02 03:57] LABS: CALCIUM 8.3 MG/DL (8.5-10.1)
[2022-06-02] MEDS: NOREPINEPHRINE 8 MG/250 ML 250 ML IV SCH (03:58)
[2022-06-02] MEDS: KCL 20 MEQ TAB (K-DUR) PO SCH (03:58)
[2022-06-02] MEDS: POTASSIUM CL 10MEQ/50ML IVPB 50 ML IV SCH (03:58)
[2022-06-02 04:01] LABS: CREATININE SERUM 0.62 MG/DL (0.60-1.30)
[2022-06-02] MEDS: morphine INJ 4 MG/ML 1 ML (VIAL/SYRINGE) IVP PRN ×4 (04:06→23:36)
[2022-06-02] MEDS: MAGNESIUM 1 GM/100 ML IVPB 100 ML IV SCH (05:03)
[2022-06-02] MEDS: LEVOTHYROXINE 100 MCG (LEVOTHROID) TAB PO SCH (05:31)
--- NOTE | 2022-06-02 07:35 | Tele-ICU Progress Note ---
Subjective Date Seen by a Provider: Jun 02, 2022 Time Seen by a Provider: 12:02 Subjective/Events-last exam (Tele-ICU Physician , Progress note) Available chart/ vitals / labs / Images reviewed H&P is from ER notes Patient's information available about PMH, allergy reviewed in EMR. ROS as per chart and RN report Video assessment done using teleICU camera, rest of exam as per RN Discussed with RN. She is a 82-year-old female has a history of recent urinary tract infection caused by E. coli and also chronic back pain with a poor appetite apparently she was treated and released from this hospital earlier in April of 09/12/2021. She was living with her daughter at home and she went to the [facility] according to her daughter and see if she is slumped over and she was taken to the [facility] where she was found to have a hypotension requiring Levophed hence she is transferred to [facility]. Now she is feeling somewhat better and she is taken off the Levophed. Not much information available in the computer for this admission I have reviewed her previous admission and obtain some history and discussed with the patient's daughter who is in room. Apparently her pain doctor ordered an MRI of the back for chronic back pain but in view of her pacemaker insertion it was not done yet awaiting to be confirmed that it is compatible with MRI. She is in no acute respiratory distress at this time. 06/02/2022. resting comfortably. so far blood c/s negative. CT spine noted. L4 compression fracture. no evidense of abscess or inflamation. Impression 1. Suspected sepsis improving 2. Possible urinary tract infection recurrent 3. Chronic back pain probably due to L4 compression fracture 4. Poor appetite Recommendations 1. Continue IV vancomycin for one more day and if blood c/s negative may discontinue 2. She would benefit from kyphoplasty when able. 3. DVT prophylaxis and ulcer prophylaxis. 4. Management of pain per primary care. Coordination of care with bedside consultants and primary care. Sepsis Event Evaluation Height, Weight, BMI Height: '" Weight: lbs. oz. kg; 40.03 BMI Method: Focused Exam Lactate Level 05/31/22 17:56: Lactic Acid Level 1.22 Exam Exam Patient acknowledged, consented, and participated in this virtual visit which was conducted using real time audio/video Vital Signs Date Time Temp Pulse Resp B/P (MAP) Pulse Ox O2 Delivery O2 Flow Rate FiO2 06/02/22 06:46 Room Air 0.00 06/02/22 06:00 80 17 138/80 (99) 95 Room Air 06/02/22 05:00 80 18 119/58 (78) 96 Room Air 06/02/22 04:27 36.7 Room Air 06/02/22 04:00 80 18 149/72 (97) 96 Room Air 06/02/22 04:00 98 Room Air 06/02/22 03:00 80 31 130/74 (92) 94 Room Air 06/02/22 02:00 80 39 137/76 (96) 96 Room Air 06/02/22 01:00 80 24 122/59 (80) 93 Room Air 06/02/22 01:00 80 06/02/22 00:08 36.7 06/02/22 00:00 36.9 06/02/22 00:00 80 14 128/69 (88) 95 Room Air 06/01/22 23:59 98 Room Air 06/01/22 23:00 80 21 131/75 (93) 94 Room Air 06/01/22 22:00 80 27 148/90 (109) 97 Room Air 06/01/22 21:00 80 28 149/85 (106) 100 Room Air 06/01/22 20:17 35.9 06/01/22 20:00 80 16 123/72 (89) 94 Room Air 06/01/22 20:00 98 Room Air 06/01/22 19:00 80 06/01/22 19:00 80 14 118/71 (87) 94 Room Air 06/01/22 18:00 80 27 128/78 (95) 96 Room Air 06/01/22 17:00 80 16 126/81 (96) 96 Room Air 06/01/22 16:20 36.3 06/01/22 16:00 80 18 119/71 (87) 95 Room Air 06/01/22 16:00 99 Room Air 06/01/22 15:00 80 16 124/76 (92) 97 Room Air 06/01/22 14:00 80 14 126/76 (93) 93 Room Air 06/01/22 13:00 80 20 122/73 (89) 94 Room Air 06/01/22 13:00 80 06/01/22 12:00 80 16 117/70 (86) 92 Room Air 06/01/22 12:00 98 Room Air 06/01/22 11:52 36.2 06/01/22 11:15 80 17 134/78 (96) 95 Room Air 06/01/22 11:10 80 124/63 (83) Room Air 06/01/22 10:55 80 130/75 (93) Room Air 06/01/22 10:00 80 31 125/75 (92) 93 Room Air 06/01/22 09:00 80 27 131/73 (92) 95 Room Air 06/01/22 08:00 97 Room Air 06/01/22 08:00 80 30 135/76 (95) 95 Room Air 06/01/22 07:55 36.6 I & O 06/02/22 07:00 Intake Total 3620 ml Output Total 2175 ml Balance 1445 ml Height & Weight Height: '" Weight: lbs. oz. kg; 40.03 BMI Method: General Appearance: No Apparent Distress, Obese HEENT: PERRL/EOMI, Pharynx Normal Neck: Normal Inspection, Supple Respiratory: Lungs Clear, No Respiratory Distress Cardiovascular: Regular Rate, Rhythm, No Murmur Peripheral Pulses: 1+ Dorsalis Pedis (R), 1+ Left Dors-Pedis (L) Extremity: Normal Inspection, No Pedal Edema Neurologic/Psychiatric: Alert, No Motor/Sensory Deficits Skin: Normal Color, Warm/Dry Results Lab Laboratory Tests 05/31/22 17:56 06/01/22 04:30 06/02/22 03:40 Assessment/Plan Assessment/Plan as above Critical Care: Critically Ill Patient Time spent with patient (mins): 15 ANA SIMMS MD Jun 02, 2022 07:35
[2022-06-02] MEDS: SENNOSIDES 8.6 MG (SENOKOT) TAB PO SCH ×2 (09:20→19:31)
[2022-06-02] MEDS: DOCUSATE SODIUM 100 MG (COLACE) CAP PO SCH ×2 (09:20→19:31)
[2022-06-02] MEDS: RIVAROXABAN 20 MG TABLET (XARELTO) PO SCH (09:22)
[2022-06-02] MEDS: VANCOMYCIN 1 GM/NS 250 ML IVPB IV SCH ×2 (09:23)
--- NOTE | 2022-06-02 13:27 | Progress Note - Hospitalist ---
Subjective HPI/CC On Admission Date Seen by Provider: Jun 02, 2022 Time Seen by Provider: 10:05 Carmen Saunders is an 82 year old female who presented to the [facility] with back pain and was found to be hypotensive. She has been admitted with sepsis and urinary tract infections a couple times recently. She denies fevers and chills. She denies shortness of breath and cough. She denies dysuria, frequency, and urgency. She denies headache, neck pain, and photophobia. She has back pain in her lower back on the right side. She denies rash. She denies lightheadedness and dizziness. She has not been on antibiotics since she completed a course of antibiotcs nearly a month ago for a urinary tract infection. Subjective/Events-last exam She is sleeping in bed. She denies pain. She has no other complaints. Focused Exam Lactate Level 05/31/22 17:56: Lactic Acid Level 1.22 Objective Exam Vital Signs Vital Signs Date Time Temp Pulse Resp B/P (MAP) Pulse Ox O2 Delivery O2 Flow Rate FiO2 06/02/22 13:00 80 06/02/22 12:00 11 151/83 (105) 94 Room Air 06/02/22 11:50 36.8 06/02/22 06:46 0.00 Capillary Refill : General Appearance: No Apparent Distress, Obese Respiratory: Lungs Clear, No Respiratory Distress Cardiovascular: Regular Rate, Rhythm, No Murmur Gastrointestinal: Normal Bowel Sounds, Soft Extremity: Normal Inspection, No Pedal Edema Neurologic/Psychiatric: Alert, No Motor/Sensory Deficits Skin: Normal Color, Warm/Dry Results/Procedures Lab Laboratory Tests 06/02/22 03:40 Patient resulted labs reviewed. Imaging: Reviewed Imaging Report Assessment/Plan Assessment and Plan Assess & Plan/Chief Complaint Septic shock, resolved Gram negative bacteremia Blood cultures with gram negative bacillus, awaiting final ID and susceptibilities UA negative CXR negatve CT abdomen did not identify infectious source, non-obstructive nephrolithiasis Unclear source of bacteremia, likely urinary Off Levophed Continue Cefepime Stop Vancomycin Gentle IV fluids Stable, transfer to medical floor Lumbar spondolysis Compression fracture CT spine with severe spondolysis, L4 compression fracture Pain regimen Atrial fibrillation Hypothyroidism Continue home meds as able MEGAN, resolved Critical Care Critically Ill Patient Diagnosis/Problems Diagnosis/Problems (1) Septic shock Status: Resolved Resolution Date/Time: 06/02/22 @ 13:26 (2) Gram-negative bacteremia Status: Acute (3) Spondylosis Status: Acute (4) Compression fracture of lumbar vertebra Status: Acute Qualifiers: Encounter type: initial encounter Lumbar vertebra fracture level: L4 Tevin lified Codes: S32.040A - Wedge compression fracture of fourth lumbar vertebra, initial encounter for closed fracture (5) MEGAN (acute kidney injury) Status: Acute (6) Back pain Status: Acute Qualifiers: Back pain location: low back pain Chronicity: acute Back pain laterality: right Sciatica presence: without sciatica Qualified Codes: M54.50 - Low back pain, unspecified (7) Obesity Status: Chronic (8) Paroxysmal atrial fibrillation Status: Chronic (9) Hypothyroidism Status: Chronic BELINDA DOMINGUEZ MD Jun 02, 2022 13:27
[2022-06-02] MEDS: LACTATED RINGERS 1,000 ML IV SCH (15:12)
[2022-06-02 15:42] VITALS: BP 120/63
[2022-06-02] MEDS: CYCLOBENZAPRINE 10 MG (FLEXERIL) TAB PO PRN (18:33)
[2022-06-02 19:37] VITALS: BP 124/64
[2022-06-02] MEDS ORDERED: TROUGH ORDER-PHARMACY XX NR (21:00)
[2022-06-02 23:22] VITALS: BP 156/72
[2022-06-03] MEDS: CEFEPIME INJECTION 1,000 MG in NS (IVPB) 50 ML IV SCH ×3 (02:24→17:05)
[2022-06-03] MEDS: LACTATED RINGERS 1,000 ML IV SCH ×2 (03:45→17:04)
[2022-06-03 03:51] VITALS: BP 124/69
[2022-06-03 04:06] LABS: BASOPHILS % (AUTO) 0 % (0-10); EOSINOPHILS # (AUTO) 0.1 10^3/uL (0.0-0.3); EOSINOPHILS % (AUTO) 1 % (0-10); HEMATOCRIT 31 % (35-52); HEMOGLOBIN 9.7 g/dL (11.5-16.0); LYMPHOCYTES # (AUTO) 1.6 10^3/uL (1.0-4.0); LYMPHOCYTES % (AUTO) 14 % (12-44); MEAN CORPUSCULAR HEMOGLOBIN 27 pg (25-34); MEAN CORPUSCULAR HGB CONC 32 g/dL (32-36); MEAN CORPUSCULAR VOLUME 85 fL (80-99); MEAN PLATELET VOLUME 9.7 fL (9.0-12.2); MONOCYTES # (AUTO) 0.9 10^3/uL (0.0-1.0); MONOCYTES % (AUTO) 8 % (0-12); NEUTROPHILS # (AUTO) 7.9 10^3/uL (1.8-7.8); NEUTROPHILS % (AUTO) 73 % (42-75); PLATELET COUNT 213 10^3/uL (130-400); WHITE BLOOD COUNT 10.8 10^3/uL (4.3-11.0)
[2022-06-03 04:26] LABS: POTASSIUM 3.9 MMOL/L (3.6-5.0)
[2022-06-03 04:27] LABS: CALCIUM 8.3 MG/DL (8.5-10.1)
[2022-06-03 04:32] LABS: CREATININE SERUM 0.64 MG/DL (0.60-1.30)
[2022-06-03 04:34] LABS: MAGNESIUM 1.9 MG/DL (1.6-2.4)
[2022-06-03] MEDS: MAGNESIUM 1 GM/100 ML IVPB 100 ML IV SCH (05:10)
[2022-06-03] MEDS: KCL 20 MEQ TAB (K-DUR) PO SCH (05:11)
[2022-06-03] MEDS: POTASSIUM CL 10MEQ/50ML IVPB 50 ML IV SCH (05:11)
[2022-06-03 06:18] LABS: ALBUMIN 2.4 GM/DL (3.2-4.5); BILIRUBIN,DIRECT 0.3 MG/DL (0.0-0.3); BILIRUBIN,INDIRECT 0.3 MG/DL; BILIRUBIN,TOTAL 0.6 MG/DL (0.1-1.0); TOTAL PROTEIN 5.8 GM/DL (6.4-8.2)
[2022-06-03] MEDS: LEVOTHYROXINE 100 MCG (LEVOTHROID) TAB PO SCH (06:35)
[2022-06-03] MEDS: morphine INJ 4 MG/ML 1 ML (VIAL/SYRINGE) IVP PRN ×2 (06:39→10:16)
[2022-06-03 07:21] VITALS: BP 155/88
[2022-06-03] MEDS: DOCUSATE SODIUM 100 MG (COLACE) CAP PO SCH ×2 (07:38→20:39)
[2022-06-03] MEDS: SENNOSIDES 8.6 MG (SENOKOT) TAB PO SCH ×2 (07:38→20:39)
[2022-06-03] MEDS: RIVAROXABAN 20 MG TABLET (XARELTO) PO SCH (08:14)
--- NOTE | 2022-06-03 10:17 | Physical Therapy Evaluation ---
PT Evaluation-General Medical Diagnosis Admission Date May 31, 2022 at 16:10 Medical Diagnosis: sepsis/hypotension Onset Date: May 31, 2022 Therapy Diagnosis Therapy Diagnosis: uncontrolled back pain/weakness/debility Precautions Precautions/Isolations: Fall Prevention, Standard Precautions Referral Physician: Ebenezer Reason for Referral: Evaluation/Treatment Medical History Pertinent Medical History: Atrial Fib, HTN, Macular Degenertion Additional Medical History morbid obesity Current History transfer from [facility] secondary to back pain and hypotension Reviewed History: Yes Social History Home: Single Level Current Living Status: Children Prior Prior Level of Function SCALE: Activities may be completed with or without assistive devices. 0-Czpcdkybhe-pusnirz completes the activity by him/herself with no assistance from a helper. 5-Set-up or Clean-up Assistance-helper sets up or cleans up; patient completes activity. [place] assists only prior to or following the activity. 4-Supervision or Touching Assistance-helper provides verbal cues and/or touching/steadying and/or contact guard assistance as patient completes activity. Assistance may be provided throughout the activity or intermittently. 3-Partial/Moderate Assistance-helper does LESS THAN HALF the effort. [place] lifts, holds or supports trunk or limbs, but provides less than half the effort. 2-Substantial/Maximal Assistance-helper does MORE THAN HALF the effort. [place] lifts or holds trunk or limbs and provides more than half the effort. 1-Uwbnmrlpm-eiwqbo does ALL the effort. Patient does none of the effort to complete the activity. Or, the assistance of 2 or more helpers is required for the patient to complete the activity. If activity was not attempted, code reason: 7-Patient Refused. 9-Not Applicable-not attempted and the patient did not perform the activity before the current illness, exacerbation or injury. 10-Not Attempted due to Environmental Limitations-(lack of equipment, weather restraints, etc.). 88-Not Attempted due to Medical Conditions or Safety Concerns. Bed Mobility: 6 Transfers (B,C,W/C): 6 Gait: 5 Indoor Mobility (Ambulation): Independent Prior Devices Use: Walker PT Evaluation-Current Subjective Patient yells at this therapist due to back pain without PT even touching patient. Objective Patient Orientation: Normal For Age Attachments: [place] Catheter, IV ROM/Strength ROM Lower Extremities unable to assess due to patient not tolerating PROM bilateral LE Strength Lower Extremities NT due to uncontrolled pain Integumentary/Posture Bladder Incontinence: [place]ver Cath Neuromuscular (Tone, Coordination, Reflexes) unable to assess Sensory Vision: Unable to Assess Hearing: Functional Transfers Roll Left to Right (QC): 1 (patient ceased treatment) Sit to Lying (QC): 7 Lying to Sitting/Side of Bed(Q: 7 Sit to Stand (QC): 7 Chair/Mrx-kq-Dosus Xfer(QC): 7 Gait Walk 10 feet (QC): 7 Walk 50 ft with 2 Turns(QC): 7 Walk 150 ft (QC): 7 Assessment/Needs Patient ceased treatment due to uncontrolled back pain and inability to tolerated minimal activity. Physician notified. Rehab Potential: Guarded PT Pocket Builder Goals Halfway Goals PT Pocket Builder Goals Time Frame: Jun 15, 2022 Roll Left & Right (QC): 3 Sit to Lying (QC): 3 Lying-Sitting on Side/Bed(QC): 3 Sit to Stand (QC): 3 Chair/Bnj-xb-Guvha Xfer(QC): 3 Walk 10 feet (QC): 3 PT Plan Problem List Problem List: Activity Tolerance, Functional Strength, Safety, Balance, Gait, Transfer, Bed Mobility Treatment/Plan Treatment Plan: Continue Plan of Care Treatment Plan: Bed Mobility, Education, Functional Activity Larry, Functional Strength, Gait, Safety, Therapeutic Exercise, Transfers Treatment Duration: Jun 15, 2022 Frequency: 6 times per week Estimated Hrs Per Day: .25 hour per day Time Time In: 805 Time Out: 820 DATE: Jun 03, 2022 Total Billed Treatment Time: 15 Total Billed Treatment 1 visit [facility] 15 min IRINA OHARA PT Jun 03, 2022 10:17
[2022-06-03 11:29] VITALS: BP 147/78
--- NOTE | 2022-06-03 11:48 | Occupational Therapy Eval ---
OT Evaluation-General/PLF Medical Diagnosis Admission Date May 31, 2022 at 16:10 Medical Diagnosis: sepsis/hypotension Onset Date: May 31, 2022 Therapy Diagnosis Therapy Diagnosis: Weakness, Debility Precautions Precautions/Isolations: Fall Prevention, Standard Precautions Weight Bear Status Weight Bearing Restriction: Weight Bearing/Tolerated Referral Physician: Ebenezer Brown Reason: Activity Tolerance, Self Care, Evaluation/Treatment, Strengthening/ROM Medical History Pertinent Medical History: Atrial Fib, HTN, Macular Degenertion Additional Medical History Joint replacement Reviewed History: Yes Social History Home: Single Level Current Living Status: Children (With daughter) Entry Into Home: Stairs With Railing Steps Into Home: 6 ADL-Prior Level of Function SCALE: Activities may be completed with or without assistive devices. 1-Hplahobcld-aksfxhs completes the activity by him/herself with no assistance from a helper. 5-Set-up or Clean-up Assistance-helper sets up or cleans up; patient completes activity. [place] assists only prior to or following the activity. 4-Supervision or Touching Assistance-helper provides verbal cues and/or touching/steadying and/or contact guard assistance as patient completes activity. Assistance may be provided throughout the activity or intermittently. 3-Partial/Moderate Assistance-helper does LESS THAN HALF the effort. [place] lifts, holds or supports trunk or limbs, but provides less than half the effort. 2-Substantial/Maximal Assistance-helper does MORE THAN HALF the effort. [place] lifts or holds trunk or limbs and provides more than half the effort. 8-Hnoqpapvu-ornbof does ALL the effort. Patient does none of the effort to complete the activity. Or, the assistance of 2 or more helpers is required for the patient to complete the activity. If activity was not attempted, code reason: 7-Patient Refused. 9-Not Applicable-not attempted and the patient did not perform the activity before the current illness, exacerbation or injury. 10-Not Attempted due to Environmental Limitations-(lack of equipment, weather restraints, etc.). 88-Not Attempted due to Medical Conditions or Safety Concerns. ADL PLOF Comments Daughter in room. Reports that pt. is typically independent. The last month has become more dependent on her walker. Self Care: Independent Functional Cognition: Unknown DME/Equipment Comments Pt. has a walker. OT Current Status Subjective Pt. in bed. She reports 10/10 back pain. Daughter reports that she is on morphine and is still having pain. Mental Status/Objective Patient Orientation: Person ADL-Treatment Oral Hygiene (QC): 4 (SBA to brush teeth at bed level.) Other Treatments Pt. in bed. She is groggy. She declines all attempts at OOB activity. Daughter in room and states that pt. has been in a lot of pain. Pt. declines all treatment but does agree to wash her face, brush her hair, and brush her teeth. OT gets her these items, and stands by, giving her things while she completes each task. OT attempts to put HOB up so that pt. can be more elevated to brush her teeth. However, pt. reports that this hurts too bad and only lets OT put HOB up slightly. Pt. is able to hold her brush and toothbrush and complete the task. Declines all other treatment. OT offers to assist her to reposition in bed. She declines this. Education OT Patient Education: Modified ADL techniques, Progress toward Goal/Update tx plan, Purpose of tx/functional activities, Reviewed precautions, Rehab process Teaching Recipient: Patient Teaching Methods: Demonstration, Discussion Response to Teaching: Verbalize Understanding, Reinforcement Needed OT Short Term Goals Short Term Goals Time Frame: Jun 17, 2022 Eatin Oral hygiene: 5 Toileting hygiene: 3 Shower/bathe self: 3 Upper body dressin Lower body dressin Putting on/taking off footwear: 3 OT Senior Care Goals Cinder Crane Operator Goals Time Frame: Jul 01, 2022 Eating (QC): 6 Oral Hygiene (QC): 5 Toileting Hygiene (QC): 5 Shower/Bathe Self (QC): 5 Upper Body Dressing (QC): 6 Lower Body Dressing (QC): 5 (With AE) On/Off Footwear (QC): 5 (With AE) Additional Goals: 1-Demonstrate ADL Tasks, 2-Verbalize Understanding, 3-ImproveStrength/Larry 1=Demonstrate adherence to instructed precautions during ADL tasks. 2=Patient will verbalize/demonstrate understanding of assistive devices/modifications for ADL. 3=Patient will improve strength/tolerance for activity to enable patient to perform ADL's. OT Education/Plan Problem List/Assessment Assessment: Decreased Activ Tolerance, Decreased UE Strength, Dependent Transfers, Impaired Bed Mobility, Impaired Funct Balance, Impaired I ADL's, Impaired Self-Care Skills, Restricted Funct UE ROM Discharge Recommendations Plan/Recommendations: Continue POC Therapy Discharge Recommendati: Post Acute OT Equpiment Recommendations-D/C: Hip Kit Treatment Plan/Plan of Care Treatment,Training & Education: Yes Patient would benefit from OT for education, treatment and training to promote independence in ADL's, mobility, safety and/or upper extremity function for ADL's. Plan of Care: ADL Retraining, Functional Mobility, UE Funct Exercise/Act Treatment Duration: Jul 01, 2022 Frequency: 3 times per week (3-5x/week) Rehab Potential: Guarded Time Start Time: 09:00 Stop Time: 09:10 DATE: Jun 03, 2022 Total Time Billed (hr/min): 10 Billed Treatment Time 1, ROSELINE MELVIN OT Jun 03, 2022 11:48
--- NOTE | 2022-06-03 13:09 | Progress Note - Hospitalist ---
SAIMA GREENE 06/03/22 1309: Subjective HPI/CC On Admission Date Seen by Provider: Jun 03, 2022 Time Seen by Provider: 10:00 Carmen Saunders is an 82 year old female who presented to the [place] ER with back pain and was found to be hypotensive. She has been admitted with sepsis and urinary tract infections a couple times recently. She denies fevers and chills. She denies shortness of breath and cough. She denies dysuria, frequency, and urgency. She denies headache, neck pain, and photophobia. She has back pain in her lower back on the right side. She denies rash. She denies lightheadedness and dizziness. She has not been on antibiotics since she completed a course of antibiotcs nearly a month ago for a urinary tract infection. Subjective/Events-last exam No acute overnight events. Unfortunately, Ms. Saunders is still experiencing significant back pain even with morphine. The pain is located paraspinally and slightly on the right side of the mid-back. PT came by to work with her this morning and she tried to participate but was not able to due to pain. She is frustrated because she used to be able to live independently and is worried that will not be possible if her back pain continues to be this severe. Review of Systems General: No Chills, No Night Sweats, No Fatigue, No Malaise, No Appetite, No Other Pulmonary: No Dyspnea, No Cough, No Pleuritic Chest Pain, No Other Cardiovascular: No: Chest Pain, Palpitations, Orthopnea, Paroxysmal Noc. Dyspnea, Edema, Lt Headedness, Other Gastrointestinal: No: Nausea, Vomiting, Abdominal Pain, Diarrhea, Constipation, Melena, Hematochezia, Other Musculoskeletal: back pain Focused Exam Lactate Level 05/31/22 17:56: Lactic Acid Level 1.22 Objective Exam Vital Signs Vital Signs Date Time Temp Pulse Resp B/P (MAP) Pulse Ox O2 Delivery O2 Flow Rate FiO2 06/03/22 11:29 36.4 79 19 147/78 (101) 94 Room Air 06/02/22 14:47 0.00 0.00 Capillary Refill : General Appearance: No Apparent Distress Respiratory: Normal Breath Sounds, No Accessory Muscle Use, No Respiratory Distress Cardiovascular: Regular Rate, Rhythm Gastrointestinal: Normal Bowel Sounds Back: Vertebral Tenderness Neurologic/Psychiatric: Alert, Oriented x3, Normal Mood/Affect Results/Procedures Lab Laboratory Tests 06/03/22 03:57 Patient resulted labs reviewed. Assessment/Plan Assessment and Plan Assess & Plan/Chief Complaint Assess & Plan/Chief Complaint Septic shock, resolved Gram negative bacteremia Blood cultures obtained in [place] grew gram negative bacillus UA negative CXR negative CT abdomen did not identify infectious source nor nephrolithiasis Unclear source of bacteremia, likely urinary 06/03: WBC wnl at 10.8. No growth to date on blood cultures obtained in-house on 05/31. Continue cefepime. Continue IV LR. Lumbar spondolysis Compression fracture CT spine with severe spondolysis, L4 compression fracture 06/03: Unable to work with PT team due to pain. Continue pain regimen of morphine & tramadol. Atrial fibrillation Hypothyroidism Continue home meds as able MEGAN, resolved OPAL SHEFFIELD DO 06/03/222118: Assessment/Plan Assessment and Plan Assess & Plan/Chief Complaint Assessment: Bacteremia of E.Coli Sepsis UTI Compression fracture, unable to move without excruciating pain Severe debility Plan: Pain control PT and OT Rocephin antibiotic Discontinue Cefepime Needs placement Poor prognosis utilization management rn Supervisory-Addendum Brief Verification & Attestation Participated in pt care: history, MDM, physical Personally performed: exam, history, MDM, supervision of care Care discussed with: Medical Student Procedures: n/a Results interpretation: Verified all documentation Verification and Attestation of Medical Student E/M Service A medical student performed and documented this service in my presence. I rev iewed and verified all information documented by the medical student and made modifications to such information, when appropriate. I personally performed the physical exam and medical decision making. Opal Sheffield, Jun 03, 2022,21:15 SAIMA GREENE Jun 03, 2022 13:09 OPAL SHEFFIELD DO Jun 03, 2022 21:19
[2022-06-03] MEDS ORDERED: CALC-192 PO (14:19)
[2022-06-03] MEDS ORDERED: BUPR1PAT TD (14:19)
[2022-06-03] MEDS ORDERED: NS (IVPB) 50 ML ONE (15:12)
[2022-06-03 15:47] VITALS: BP 135/69
[2022-06-03 19:12] VITALS: BP 137/76
[2022-06-03] MEDS ORDERED: polyethylene glycoL POWDER 17 GM (MIRALAX) PACK PO ONE (21:30)
[2022-06-03] MEDS ORDERED: ACETAMINOPHEN 500 MG TAB (TYLENOL) PO PRN (21:30)
[2022-06-03] MEDS ORDERED: NAPROXEN 250 MG (NAPROSYN) TABLET PO PRN (21:45)
[2022-06-03] MEDS ORDERED: LIDOCAINE 4% (SALONPAS) PATCH TOP PRN (21:45)
[2022-06-03 23:27] VITALS: BP 136/63
[2022-06-04] MEDS ORDERED: NS (IVPB) 50 ML ONE (02:38)
[2022-06-04] MEDS: CEFEPIME INJECTION 1,000 MG in NS (IVPB) 50 ML IV SCH ×2 (02:45→08:15)
[2022-06-04 03:36] VITALS: BP 138/78
[2022-06-04] MEDS: POTASSIUM CL 10MEQ/50ML IVPB 50 ML IV SCH (06:00)
[2022-06-04] MEDS: KCL 20 MEQ TAB (K-DUR) PO SCH (06:00)
[2022-06-04] MEDS: LEVOTHYROXINE 100 MCG (LEVOTHROID) TAB PO SCH (06:12)
[2022-06-04 06:24] LABS: BASOPHILS # (AUTO) 0.1 10^3/uL (0.0-0.1); BASOPHILS % (AUTO) 0 % (0-10); EOSINOPHILS # (AUTO) 0.1 10^3/uL (0.0-0.3); EOSINOPHILS % (AUTO) 1 % (0-10); HEMATOCRIT 31 % (35-52); LYMPHOCYTES # (AUTO) 1.4 10^3/uL (1.0-4.0); LYMPHOCYTES % (AUTO) 12 % (12-44); MEAN CORPUSCULAR HEMOGLOBIN 27 pg (25-34); MEAN CORPUSCULAR HGB CONC 32 g/dL (32-36); MEAN CORPUSCULAR VOLUME 85 fL (80-99); MEAN PLATELET VOLUME 9.6 fL (9.0-12.2); MONOCYTES # (AUTO) 0.9 10^3/uL (0.0-1.0); MONOCYTES % (AUTO) 8 % (0-12); NEUTROPHILS # (AUTO) 8.2 10^3/uL (1.8-7.8); NEUTROPHILS % (AUTO) 73 % (42-75); PLATELET COUNT 212 10^3/uL (130-400); WHITE BLOOD COUNT 11.2 10^3/uL (4.3-11.0)
[2022-06-04 06:58] LABS: ALBUMIN 2.5 GM/DL (3.2-4.5); BILIRUBIN,TOTAL 0.8 MG/DL (0.1-1.0); CALCIUM 8.5 MG/DL (8.5-10.1); CREATININE SERUM 0.62 MG/DL (0.60-1.30); POTASSIUM 3.8 MMOL/L (3.6-5.0); TOTAL PROTEIN 5.9 GM/DL (6.4-8.2)
[2022-06-04] MEDS: polyethylene glycoL POWDER 17 GM (MIRALAX) PACK PO SCH ×2 (07:18→20:32)
[2022-06-04] MEDS: DOCUSATE SODIUM 100 MG (COLACE) CAP PO SCH ×2 (07:18→20:32)
[2022-06-04] MEDS: SENNOSIDES 8.6 MG (SENOKOT) TAB PO SCH ×2 (07:18→20:32)
[2022-06-04 07:31] VITALS: BP 148/76
[2022-06-04] MEDS: MAGNESIUM 1 GM/100 ML IVPB 100 ML IV SCH (07:45)
[2022-06-04] MEDS: CALCIUM CARB + VIT D 600 MG (CALCARB + D) TAB PO SCH ×2 (08:13→20:08)
[2022-06-04] MEDS: LACTATED RINGERS 1,000 ML IV SCH (08:15)
[2022-06-04] MEDS: RIVAROXABAN 20 MG TABLET (XARELTO) PO SCH (08:15)
[2022-06-04] MEDS ORDERED: PRESERVISION AREDS SOFTGEL (BAUSH & LOMB) PO SCH (09:00)
[2022-06-04] MEDS: morphine INJ 4 MG/ML 1 ML (VIAL/SYRINGE) IVP PRN (09:31)
[2022-06-04] MEDS: cefTRIAXone 1 GM PRE-MIX 50 ML IV SCH (09:58)
--- NOTE | 2022-06-04 10:34 | Progress Note - Hospitalist ---
SAIMA GREENE 06/04/22 1034: Subjective HPI/CC On Admission Date Seen by Provider: Jun 04, 2022 Time Seen by Provider: 09:30 Carmen Saunders is an 82 year old female who presented to the [facility] ER with back pain and was found to be hypotensive. She has been admitted with sepsis and urinary tract infections a couple times recently. She denies fevers and chills. She denies shortness of breath and cough. She denies dysuria, frequency, and urgency. She denies headache, neck pain, and photophobia. She has back pain in her lower back on the right side. She denies rash. She denies lightheadedness and dizziness. She has not been on antibiotics since she completed a course of antibiotcs nearly a month ago for a urinary tract infection. Subjective/Events-last exam No acute overnight events. Was able to get a good night of sleep last night without requiring PRN morphine (only taking tramadol). States her back pain is usually manageable if she lies still and doesn't move around much. I asked if she would be willing to work with PT today, and she replied that due to the extent of pain that caused yesterday she'd prefer not to. She is tolerating diet w/o n/v. Had a loose stool yesterday. Review of systems: Negative except as described above. Objective Exam Vital Signs Vital Signs Date Time Temp Pulse Resp B/P (MAP) Pulse Ox O2 Delivery O2 Flow Rate FiO2 06/04/22 11:16 36.6 80 18 152/90 (110) 97 Room Air 06/02/22 14:47 0.00 0.00 Capillary Refill : General Appearance: No Apparent Distress Respiratory: Normal Breath Sounds, No Accessory Muscle Use, No Respiratory Distress Cardiovascular: Regular Rate, Rhythm, No Gallop, No Murmur Back: Vertebral Tenderness Neurologic/Psychiatric: Alert, Oriented x3 Results/Procedures Lab Laboratory Tests 06/04/22 06:15 Patient resulted labs reviewed. Assessment/Plan Assessment and Plan Assess & Plan/Chief Complaint Assess & Plan/Chief Complaint Septic shock, resolved Gram negative bacteremia Blood cultures obtained in [facility] grew gram negative bacillus UA negative CXR negative CT abdomen did not identify infectious source nor nephrolithiasis Unclear source of bacteremia, likely urinary 06/03: WBC wnl at 10.8. No growth to date on blood cultures obtained in-house on 05/31. Continue cefepime. Continue IV LR. 06/04: WBC 11.2. In-house blood cultures grew E. coli. Switched IV cefepime to IV ceftriaxone. Lumbar spondolysis Compression fracture CT spine with severe spondolysis, L4 compression fracture 06/03: Unable to work with PT team due to pain. Continue pain regimen of morphine & tramadol. 06/04: Back pain improved and is tolerable this morning, but most movements cause severe pain. Did not require PRN morphine yesterday afternoon or overnight. Continue PRN tramadol, PRN morphine, PRN lidocaine patches. Working on placement at facility. Atrial fibrillation Hypothyroidism Continue home meds as able MEGAN, resolved OPAL SHEFFIELD DO 06/05/22 0525: Subjective Subjective/Events-last exam Had in depth discussion with son outside the room Will discontinue Cefepime, narrow down to Rocephin for bacteremia on blood cul tures for E.Coli Pain is okay as long as she doesn't move I did talk to the son about the likely decline in overall status, he is not ready to admit to that Supervisory-Addendum Brief Verification & Attestation Participated in pt care: history, MDM, physical Personally performed: exam, history, MDM, supervision of care Care discussed with: Medical Student Procedures: n/a Results interpretation: Verified all documentation Verification and Attestation of Medical Student E/M Service A medical student performed and documented this service in my presence. I reviewed and verified all information documented by the medical student and made modifications to such information, when appropriate. I personally performed the physical exam and medical decision making. Opal Sheffield, Jun 05, 2022,05:24 SAIMA GREENE Jun 04, 2022 10:34 OPAL SHEFFIELD DO Jun 05, 2022 05:25
[2022-06-04 11:16] VITALS: BP 152/90
--- NOTE | 2022-06-04 11:56 | Occ Therapy Progress Note ---
Therapy Progress Note Pt just received pain medications per family member. Pt very lethargic. Family refused OT session. Will attempt tomorrow. RENUKA ROSENBERG Jun 04, 2022 11:55
--- NOTE | 2022-06-04 14:35 | Physical Therapy Progress Note ---
Therapy Progress Note Attempted to see patient for treatment. She politely refused. Will check back as time permits. RAMSEY VYAS PT Jun 04, 2022 14:35
[2022-06-04 15:43] VITALS: BP 135/66
[2022-06-04] MEDS: VITAMIN D3 25 MCG (1,000 UNITS) TABLET PO SCH (17:09)
[2022-06-04 19:12] VITALS: BP 137/76
[2022-06-04] MEDS: PRESERVISION AREDS SOFTGEL (BAUSH & LOMB) PO SCH (20:09)
[2022-06-04 23:34] VITALS: BP 134/80
[2022-06-05 03:18] VITALS: BP 114/59
[2022-06-05] MEDS: LEVOTHYROXINE 100 MCG (LEVOTHROID) TAB PO SCH (05:20)
[2022-06-05 05:33] LABS: BASOPHILS # (AUTO) 0.1 10^3/uL (0.0-0.1); BASOPHILS % (AUTO) 0 % (0-10); EOSINOPHILS # (AUTO) 0.1 10^3/uL (0.0-0.3); EOSINOPHILS % (AUTO) 1 % (0-10); HEMATOCRIT 33 % (35-52); HEMOGLOBIN 10.6 g/dL (11.5-16.0); LYMPHOCYTES # (AUTO) 1.4 10^3/uL (1.0-4.0); LYMPHOCYTES % (AUTO) 10 % (12-44); MEAN CORPUSCULAR HEMOGLOBIN 27 pg (25-34); MEAN CORPUSCULAR HGB CONC 32 g/dL (32-36); MEAN CORPUSCULAR VOLUME 85 fL (80-99); MEAN PLATELET VOLUME 9.9 fL (9.0-12.2); MONOCYTES # (AUTO) 0.9 10^3/uL (0.0-1.0); MONOCYTES % (AUTO) 6 % (0-12); NEUTROPHILS # (AUTO) 11.1 10^3/uL (1.8-7.8); NEUTROPHILS % (AUTO) 79 % (42-75); PLATELET COUNT 223 10^3/uL (130-400); WHITE BLOOD COUNT 14.1 10^3/uL (4.3-11.0)
[2022-06-05 06:00] LABS: ALBUMIN 2.7 GM/DL (3.2-4.5); CALCIUM 8.6 MG/DL (8.5-10.1); CREATININE SERUM 0.65 MG/DL (0.60-1.30); MAGNESIUM 1.9 MG/DL (1.6-2.4); POTASSIUM 3.7 MMOL/L (3.6-5.0); TOTAL PROTEIN 6.4 GM/DL (6.4-8.2)
[2022-06-05] MEDS: POTASSIUM CL 10MEQ/50ML IVPB 50 ML IV SCH (06:04)
[2022-06-05] MEDS: MAGNESIUM 1 GM/100 ML IVPB 100 ML IV SCH (06:05)
[2022-06-05] MEDS: KCL 20 MEQ TAB (K-DUR) PO SCH (06:05)
[2022-06-05] MEDS ORDERED: MULTIVIT W/MINERALS TAB (THERAGRAN M) PO SCH (07:00)
[2022-06-05 07:19] VITALS: BP 137/79
[2022-06-05] MEDS: CALCIUM CARB + VIT D 600 MG (CALCARB + D) TAB PO SCH ×2 (08:48→19:55)
[2022-06-05] MEDS: RIVAROXABAN 20 MG TABLET (XARELTO) PO SCH (08:48)
[2022-06-05] MEDS: cefTRIAXone 1 GM PRE-MIX 50 ML IV SCH (08:48)
[2022-06-05] MEDS: polyethylene glycoL POWDER 17 GM (MIRALAX) PACK PO SCH ×2 (08:54→19:56)
[2022-06-05] MEDS: DOCUSATE SODIUM 100 MG (COLACE) CAP PO SCH ×2 (08:54→19:56)
[2022-06-05] MEDS: SENNOSIDES 8.6 MG (SENOKOT) TAB PO SCH ×2 (08:54→19:56)
[2022-06-05] MEDS: PRESERVISION AREDS SOFTGEL (BAUSH & LOMB) PO SCH ×2 (08:55→19:59)
[2022-06-05] MEDS ORDERED: VANCOMYCIN INJECTION 1,000 MG in NS (IVPB) 250 ML IV SCH (10:00)
[2022-06-05 10:28] LABS: BILIRUBIN,URINE NEGATIVE (NEGATIVE); CLARITY,URINE CLEAR; COLOR,URINE YELLOW; GLUCOSE, URINE (UA) NEGATIVE (NEGATIVE); KETONES,URINE TRACE (NEGATIVE); LEUKOCYTE ESTERASE ,URINE NEGATIVE (NEGATIVE); NITRITE,URINE NEGATIVE (NEGATIVE); PROTEIN,URINE TRACE (NEGATIVE)
[2022-06-05 10:53] LABS: BACTERIA,URINE TRACE /HPF; WBC,URINE 0-2 /HPF; YEAST,URINE MODERATE /HPF
[2022-06-05] MEDS ORDERED: VANCOMYCIN 1,750 MG/NS 500 ML IVPB IV NR ×2 (11:00)
[2022-06-05 11:05] VITALS: BP 134/75
[2022-06-05] MEDS: MEROPENEM 1,000 MG in NS (IVPB) 100 ML IV SCH ×2 (11:21→22:24)
--- NOTE | 2022-06-05 11:49 | Progress Note - Hospitalist ---
SAIMA GREENE 06/05/22 1149: Subjective HPI/CC On Admission Date Seen by Provider: Jun 05, 2022 Time Seen by Provider: 10:15 Carmen Saunders is an 82 year old female who presented to the [place] ER with back pain and was found to be hypotensive. She has been admitted with sepsis and urinary tract infections a couple times recently. She denies fevers and chills. She denies shortness of breath and cough. She denies dysuria, frequency, and urgency. She denies headache, neck pain, and photophobia. She has back pain in her lower back on the right side. She denies rash. She denies lightheadedness and dizziness. She has not been on antibiotics since she completed a course of antibiotcs nearly a month ago for a urinary tract infection. Subjective/Events-last exam No acute events overnight. Ms. Saunders slept well last night, and oxycodone helped relieve her back pain even with movement related to helping her turn in bed. However, she reported a new anterior right thigh/groin pain that has been bothering her since last night or early this morning. She is tolerating diet without n/v. Review of systems: Negative except as described above. Objective Exam Vital Signs Vital Signs Date Time Temp Pulse Resp B/P (MAP) Pulse Ox O2 Delivery O2 Flow Rate FiO2 06/05/22 11:05 36.5 82 20 134/75 (94) 92 Room Air 0.00 0.00 Capillary Refill : General Appearance: No Apparent Distress Respiratory: Normal Breath Sounds, No Accessory Muscle Use, No Respiratory Distress Cardiovascular: Regular Rate, Rhythm Extremity: No Pedal Edema Results/Procedures Lab Laboratory Tests 06/05/22 05:18 Patient resulted labs reviewed. Assessment/Plan Assessment and Plan Assess & Plan/Chief Complaint Septic shock, resolved Gram negative bacteremia - Blood cultures obtained in [place] grew gram negative bacillus - UA negative - CXR negative - CT abdomen did not identify infectious source nor nephrolithiasis - Unclear source of bacteremia, likely urinary - 06/03: WBC wnl at 10.8. No growth to date on blood cultures obtained in-house on 05/31. Continue cefepime. Continue IV LR. - 06/04: WBC 11.2. In-house blood cultures grew E. coli. Switched IV cefepime to IV ceftriaxone. - 06/05: WBC back up to 14.1 & procalcitonin elevated at 1.22. Concern for recurrent infection. Switched IV ceftriaxone to IV vancomycin + IV meropenem. Urinalysis with trace bacteria, protein, & ketones. 2+ RBC. Negative for WBC & leukocyte esterase. Nitrite negative. Moderate yeast. Urine & blood cultures ordered, will f/u results. Debility Lumbar spondolysis Compression fracture - CT spine with severe spondolysis, L4 compression fracture - 06/03: Unable to work with PT team due to pain. Continue pain regimen of morphine & tramadol. - 06/04: Back pain improved and is tolerable this morning, but most movements cause severe pain. Did not require PRN morphine yesterday afternoon or overnight. Continue PRN tramadol, PRN oxycodone, PRN morphine, PRN lidocaine patches. Working on placement at facility. - 06/05: Back pain improved with oxycodone, but now with new R anterior thigh/groin pain that is bothersome. Continue PRN tramadol, PRN oxycodone, PRN morphine, PRN lidocaine patches. Working on placement at facility ([facility]). Atrial fibrillation Hypothyroidism - Continue home meds as able MEGAN, resolved OPAL SHEFFIELD DO 06/06/22 0505: Subjective Subjective/Events-last exam Pt is declining Noted procalcitonin more elevated and white count now at 14 from 11 Pt still can't move really well at all Updated daughter who is a nurse at the bedside I did then talk to her and her son outside the room, I did tell them that decline is expected Hopefully will be able to evaluate the source of the infection then go to [facility] [place], if she fails that she will need hospice Review of Systems General: Fatigue, Malaise Objective Exam General Appearance: No Apparent Distress, WD/WN, Chronically ill, Obese Respiratory: Normal Breath Sounds, No Accessory Muscle Use Cardiovascular: Regular Rate, Rhythm Assessment/Plan Assessment and Plan Assess & Plan/Chief Complaint Broad spectrum abx Poor prognosis Supervisory-Addendum Brief Verification & Attestation Participated in pt care: history, MDM, physical Personally performed: exam, history, MDM, supervision of care Care discussed with: Medical Student Procedures: n/a Results interpretation: Verified all documentation Verification and Attestation of Medical Student E/M Service A medical student performed and documented this service in my presence. I reviewed and verified all information documented by the medical student and made modifications to such information, when appropriate. I personally performed the physical exam and medical decision making. Opal Sheffield, Jun 06, 2022,05:04 SAIMA GREENE Jun 05, 2022 11:49 OPAL SHEFFIELD DO Jun 06, 2022 05:05
--- NOTE | 2022-06-05 13:31 | Physical Therapy Progress Note ---
Therapy Progress Note Attempted to see patient for PT treatment. Patients son in the room and refused treatment due to significant pain. Patient and son were educated by this PT the benefit of activity to promote healing. Son again refused treatment and patient nodder her head "no" as well. Patient and son were advised if pain improved today to have nursing contact the therapy department and this PT would attempt to mobilize patient again. RAMSEY VYAS PT Jun 05, 2022 13:31
--- NOTE | 2022-06-05 13:45 | Occ Therapy Progress Note ---
Therapy Progress Note Family refused OT session. Son stated that pt was in 10/10 back pain and is hurting to much to move. Educated son on benefits of therapy and movement, son continues to refuse. RENUKA ROSENBERG Jun 05, 2022 13:45
[2022-06-05 15:34] VITALS: BP 140/77
[2022-06-05] MEDS: VITAMIN D3 25 MCG (1,000 UNITS) TABLET PO SCH (17:28)
[2022-06-05 18:52] VITALS: BP 162/77
[2022-06-05] MEDS: CYCLOBENZAPRINE 10 MG (FLEXERIL) TAB PO PRN (20:03)
[2022-06-05] MEDS: morphine INJ 4 MG/ML 1 ML (VIAL/SYRINGE) IVP PRN (22:36)
[2022-06-05 23:40] VITALS: BP 144/81
[2022-06-06 03:44] VITALS: BP 132/65
[2022-06-06] MEDS: LEVOTHYROXINE 100 MCG (LEVOTHROID) TAB PO SCH (05:23)
[2022-06-06 05:47] LABS: BASOPHILS % (AUTO) 0 % (0-10); EOSINOPHILS # (AUTO) 0.1 10^3/uL (0.0-0.3); EOSINOPHILS % (AUTO) 1 % (0-10); HEMATOCRIT 31 % (35-52); HEMOGLOBIN 9.8 g/dL (11.5-16.0); LYMPHOCYTES # (AUTO) 1.3 10^3/uL (1.0-4.0); LYMPHOCYTES % (AUTO) 10 % (12-44); MEAN CORPUSCULAR HEMOGLOBIN 27 pg (25-34); MEAN CORPUSCULAR HGB CONC 31 g/dL (32-36); MEAN CORPUSCULAR VOLUME 86 fL (80-99); MEAN PLATELET VOLUME 9.7 fL (9.0-12.2); MONOCYTES # (AUTO) 0.7 10^3/uL (0.0-1.0); MONOCYTES % (AUTO) 6 % (0-12); NEUTROPHILS # (AUTO) 10.6 10^3/uL (1.8-7.8); NEUTROPHILS % (AUTO) 80 % (42-75); PLATELET COUNT 218 10^3/uL (130-400); WHITE BLOOD COUNT 13.2 10^3/uL (4.3-11.0)
[2022-06-06 05:59] LABS: ALBUMIN 2.4 GM/DL (3.2-4.5); POTASSIUM 3.8 MMOL/L (3.6-5.0)
[2022-06-06 06:00] LABS: CALCIUM 8.1 MG/DL (8.5-10.1)
[2022-06-06 06:02] LABS: TOTAL PROTEIN 5.9 GM/DL (6.4-8.2)
[2022-06-06 06:03] LABS: BILIRUBIN,TOTAL 0.8 MG/DL (0.1-1.0)
[2022-06-06 06:05] LABS: CREATININE SERUM 0.62 MG/DL (0.60-1.30)
[2022-06-06] MEDS: polyethylene glycoL POWDER 17 GM (MIRALAX) PACK PO SCH ×2 (07:55→20:42)
[2022-06-06] MEDS: SENNOSIDES 8.6 MG (SENOKOT) TAB PO SCH ×2 (07:59→20:42)
[2022-06-06 08:10] VITALS: BP 139/73
[2022-06-06] MEDS: RIVAROXABAN 20 MG TABLET (XARELTO) PO SCH (09:16)
[2022-06-06] MEDS: DOCUSATE SODIUM 100 MG (COLACE) CAP PO SCH ×2 (09:16→20:42)
[2022-06-06] MEDS: CALCIUM CARB + VIT D 600 MG (CALCARB + D) TAB PO SCH ×2 (09:16→20:41)
[2022-06-06] MEDS: MEROPENEM 1,000 MG in NS (IVPB) 100 ML IV SCH (09:17)
[2022-06-06] MEDS: PRESERVISION AREDS SOFTGEL (BAUSH & LOMB) PO SCH ×2 (09:17→20:41)
--- NOTE | 2022-06-06 10:40 | Physical Therapy Progress Note ---
Therapy Progress Note Patient's family declined PT at this time. Patient is resting in bed. PT will attempt later today. RN present. 1 ref IRINA OHARA PT Jun 06, 2022 10:40
[2022-06-06] MEDS ORDERED: VANCOMYCIN 1250 MG/NS 250 ML IVPB IV SCH ×2 (11:00)
[2022-06-06 11:04] VITALS: BP 123/69
[2022-06-06] MEDS: FLUCONAZOLE 100 MG/50 ML 50 ML IV SCH (11:25)
[2022-06-06] MEDS: fentaNYL PATCH 12 MCG (DURAGESIC) TD SCH (11:26)
--- NOTE | 2022-06-06 12:30 | Progress Note - Hospitalist ---
SAIMA GREENE 06/06/22 1230: Subjective HPI/CC On Admission Date Seen by Provider: Jun 06, 2022 Time Seen by Provider: 11:00 Carmen Saunders is an 82 year old female who presented to the [place] ER with back pain and was found to be hypotensive. She has been admitted with sepsis and urinary tract infections a couple times recently. She denies fevers and chills. She denies shortness of breath and cough. She denies dysuria, frequency, and urgency. She denies headache, neck pain, and photophobia. She has back pain in her lower back on the right side. She denies rash. She denies lightheadedness and dizziness. She has not been on antibiotics since she completed a course of antibiotcs nearly a month ago for a urinary tract infection. Subjective/Events-last exam No acute events overnight. Pt was resting this morning when I went in to check on her. Her son said that she had been experiencing a lot of back pain overnight and required morphine and oxycodone. The right anterior thigh/groin pain from yesterday has not been an issue. She is tolerating diet w/o n/v, although she hasn't had much of an appetite d/t pain. Ms. Saunders was not able to work with PT yesterday d/t pain. Review of systems: Negative except as described above. Objective Exam Vital Signs Vital Signs Date Time Temp Pulse Resp B/P (MAP) Pulse Ox O2 Delivery O2 Flow Rate FiO2 06/06/22 11:04 36.5 73 18 123/69 (87) 96 Room Air 0.00 0.00 Capillary Refill : General Appearance: No Apparent Distress Respiratory: Lungs Clear, Normal Breath Sounds, No Accessory Muscle Use, No Respiratory Distress Cardiovascular: Regular Rate, Rhythm, No Edema Back: Vertebral Tenderness Results/Procedures Lab Laboratory Tests 06/06/22 05:26 Patient resulted labs reviewed. Assessment/Plan Assessment and Plan Assess & Plan/Chief Complaint Septic shock, resolved Gram negative bacteremia - Blood cultures obtained in [place] grew gram negative bacillus - UA negative - CXR negative - CT abdomen did not identify infectious source nor nephrolithiasis - Unclear source of bacteremia, likely urinary - 06/03: WBC wnl at 10.8. No growth to date on blood cultures obtained in-house on 05/31. Continue cefepime. Continue IV LR. - 06/04: WBC 11.2. In-house blood cultures grew E. coli. Switched IV cefepime to IV ceftriaxone. - 06/05: WBC back up to 14.1 & procalcitonin elevated at 1.22. Concern for recurrent infection. Switched IV ceftriaxone to IV vancomycin + IV meropenem. Ur inalysis with trace bacteria, protein, & ketones. 2+ RBC. Negative for WBC & leukocyte esterase. Nitrite negative. Moderate yeast. Urine & blood cultures ordered, will f/u results. - 06/06: Urine culture grew yeast (>100K/ml), starting IV fluconazole to cover for possible fungal infection. Discontinuing IV vancomycin & IV meropenem, starting IV ceftriaxone. WBC 13.2. Debility Lumbar spondolysis Compression fracture - CT spine with severe spondolysis, L4 compression fracture - 06/03: Unable to work with PT team due to pain. Continue pain regimen of morphine & tramadol. - 06/04: Back pain improved and is tolerable this morning, but most movements cause severe pain. Did not require PRN morphine yesterday afternoon or overnight. Continue PRN tramadol, PRN oxycodone, PRN morphine, PRN lidocaine patches. Working on placement at facility. - 06/05: Back pain improved with oxycodone, but now with new R anterior thigh/groin pain that is bothersome. Continue PRN tramadol, PRN oxycodone, PRN morphine, PRN lidocaine patches. Working on placement at facility ([facility]). - 06/06: R anterior thigh/groin pain seems to have subsided, but still with significant back pain. Adding fentanyl patch. Continue PRN tramadol, PRN oxycodone, PRN morphine. May be able to discharge to [facility] tomorrow pending clinical course. Atrial fibrillation Hypothyroidism - Continue home meds as able MEGAN, resolved OPAL SHEFFIELD DO 06/07/22 0518: Assessment/Plan Assessment and Plan Assess & Plan/Chief Complaint Start Diflucan Add fentanyl patch Discharge to [place] tomorrow Supervisory-Addendum Brief Verification & Attestation Participated in pt care: history, MDM, physical Personally performed: exam, history, MDM, supervision of care Care discussed with: Medical Student Procedures: n/a Results interpretation: Verified all documentation Verification and Attestation of Medical Student E/M Service A medical student performed and documented this service in my presence. I reviewed and verified all information documented by the medical student and made modifications to such information, when appropriate. I personally performed the physical exam and medical decision making. Opal Sheffield, Jun 07, 2022,05:18 SAIMA GREENE Jun 06, 2022 12:30 OPAL SHEFFIELD DO Jun 07, 2022 05:18
[2022-06-06] MEDS ORDERED: cefTRIAXone 2,000 MG/NS 50 ML IVPB IV SCH ×2 (13:00)
--- NOTE | 2022-06-06 13:14 | Physical Therapy Daily Note ---
PT Daily Note-Current Subjective Patient agrees to attempt to sit EOB. Family present. Pain Section J - Health Conditions 1. Rarely or not at all 2. Occasionally 3. Frequently 4. Almost constantly 8. Unable to answer Pain Effect on Sleep: 4 Pain Interference with Therapy: 4 Pain Interference w/Day-to-Day: 4 Mental Status Patient Orientation: Normal For Age Attachments: Culver Catheter, IV Transfers SCALE: Activities may be completed with or without assistive devices. 7-Kqcytzejfn-vuzwfrq completes the activity by him/herself with no assistance from a helper. 5-Set-up or Clean-up Assistance-helper sets up or cleans up; patient completes activity. [place] assists only prior to or following the activity. 4-Supervision or Touching Assistance-helper provides verbal cues and/or touching/steadying and/or contact guard assistance as patient completes activity. Assistance may be provided throughout the activity or intermittently. 3-Partial/Moderate Assistance-helper does LESS THAN HALF the effort. [place] lifts, holds or supports trunk or limbs, but provides less than half the effort. 2-Substantial/Maximal Assistance-helper does MORE THAN HALF the effort. [place] lifts or holds trunk or limbs and provides more than half the effort. 0-Rhnyicvom-uunocq does ALL the effort. Patient does none of the effort to complete the activity. Or, the assistance of 2 or more helpers is required for the patient to complete the activity. If activity was not attempted, code reason: 7-Patient Refused. 9-Not Applicable-not attempted and the patient did not perform the activity before the current illness, exacerbation or injury. 10-Not Attempted due to Environmental Limitations-(lack of equipment, weather restraints, etc.). 88-Not Attempted due to Medical Conditions or Safety Concerns. Roll Left & Right (QC): 1 ( x 2) Assessment Attempted to sit to EOB, however, LBP continues to prevent this task. Patient was able to assist of PT to position right LE slightly off the EOB to attain sit, however, was unable to complete task due to increase c/o LBP. PCT in to assist with repositioning and cleansing patient after incontinent BM. Physician notified of progress. PT to continue to increase activity as tolerated by patient. PT Coating Mixer Goals Coating Mixer Goals PT Senior Living Goals Time Frame: Jun 15, 2022 Roll Left & Right (QC): 3 Sit to Lying (QC): 3 Lying-Sitting on Side/Bed(QC): 3 Sit to Stand (QC): 3 Chair/Auf-fb-Qdakq Xfer(QC): 3 Walk 10 feet (QC): 3 PT Plan Treatment/Plan Treatment Plan: Continue Plan of Care Treatment Plan: Bed Mobility, Education, Functional Activity Larry, Functional Strength, Gait, Safety, Therapeutic Exercise, Transfers Treatment Duration: Jun 15, 2022 Frequency: 6 times per week Estimated Hrs Per Day: .25 hour per day Time Time In: 1125 Time Out: 1148 DATE: Jun 06, 2022 Total Billed Treatment Time: 23 Total Billed Treatment 1 visit FA x 2 23 min IRINA OHARA PT Jun 06, 2022 13:14
--- NOTE | 2022-06-06 14:00 | Occupational Ther Daily Note ---
OT Current Status-Daily Note Subjective Pt sleeping in bed. Son present in room. Son initially wanted to refuse therapy, but encouraged son to have pt to complete AAROM for stretch/strengthen while in supine. Son left room while RM worked with pt. RM then educated son after session about having pt continue to work on moving B UE/LE to maintain ROM and some strength. Mental Status/Objective Patient Orientation: Person, Place, Time, Situation Attachments: IV ADL-Treatment Therapy Code Descriptions/Definitions Functional [place] Measure: 0=Not Assessed/NA 4=Minimal Assistance 1=Total Assistance 5=Supervision or Setup 2=Maximal Assistance 6=Modified [place] 3=Moderate Assistance 7=Complete IndependenceSCALE: Activities may be completed with or without assistive devices. 8-Wblckgytrj-xflmzjh completes the activity by him/herself with no assistance from a helper. 5-Set-up or Clean-up Assistance-helper sets up or cleans up; patient completes activity. [place] assists only prior to or following the activity. 4-Supervision or Touching Assistance-helper provides verbal cues and/or touching/steadying and/or contact guard assistance as patient completes activity. Assistance may be provided throughout the activity or intermittently. 3-Partial/Moderate Assistance-helper does LESS THAN HALF the effort. [place] lifts, holds or supports trunk or limbs, but provides less than half the effort. 2-Substantial/Maximal Assistance-helper does MORE THAN HALF the effort. [place] lifts or holds trunk or limbs and provides more than half the effort. 0-Ygogxkahn-psoatw does ALL the effort. Patient does none of the effort to complete the activity. Or, the assistance of 2 or more helpers is required for the patient to complete the activity. If activity was not attempted, code reason: 7-Patient Refused. 9-Not Applicable-not attempted and the patient did not perform the activity before the current illness, exacerbation or injury. 10-Not Attempted due to Environmental Limitations-(lack of equipment, weather restraints, etc.). 88-Not Attempted due to Medical Conditions or Safety Concerns. Other Treatment AAROM with B UE, pt falling asleep during session though would wake to name. Pt demonstrated WFL ROM throughout B UE. After session, pt sleeping in bed with call light/phone in reach. All needs met in room. OT Short Term Goals Short Term Goals Time Frame: Jun 17, 2022 Eatin Oral hygiene: 5 Toileting hygiene: 3 Shower/bathe self: 3 Upper body dressin Lower body dressin Putting on/taking off footwear: 3 OT Fdc Goals Drier Attendant Goals Time Frame: Jul 01, 2022 Eating (QC): 6 Oral Hygiene (QC): 5 Toileting Hygiene (QC): 5 Shower/Bathe Self (QC): 5 Upper Body Dressing (QC): 6 Lower Body Dressing (QC): 5 (With AE) On/Off Footwear (QC): 5 (With AE) Additional Goals: 1-Demonstrate ADL Tasks, 2-Verbalize Understanding, 3- ImproveStrength/Larry 1=Demonstrate adherence to instructed precautions during ADL tasks. 2=Patient will verbalize/demonstrate understanding of assistive devices/modifications for ADL. 3=Patient will improve strength/tolerance for activity to enable patient to perform ADL's. OT Education/Plan Problem List/Assessment Assessment: Decreased Activ Tolerance, Decreased UE Strength Discharge Recommendations Plan/Recommendations: Continue POC Treatment Plan/Plan of Care Patient would benefit from OT for education, treatment and training to promote independence in ADL's, mobility, safety and/or upper extremity function for ADL's. Plan of Care: ADL Retraining, Functional Mobility, UE Funct Exercise/Act Treatment Duration: Jul 01, 2022 Frequency: 3 times per week (3-5x/week) Rehab Potential: Guarded Time Start Time: 13:35 Stop Time: 13:45 DATE: Jun 06, 2022 Total Time Billed (hr/min): 10 Billed Treatment Time 1 visit-EX 1 (10 min) RENUKA ROSENBERG Jun 06, 2022 14:00
[2022-06-06 15:14] VITALS: BP 127/67
[2022-06-06] MEDS: VITAMIN D3 25 MCG (1,000 UNITS) TABLET PO SCH (18:20)
[2022-06-06 19:25] VITALS: BP 155/73
[2022-06-06 23:13] VITALS: BP 132/74
[2022-06-07 03:09] VITALS: BP 141/70
[2022-06-07] MEDS: LEVOTHYROXINE 100 MCG (LEVOTHROID) TAB PO SCH (04:53)
[2022-06-07 05:10] LABS: BASOPHILS % (AUTO) 0 % (0-10); EOSINOPHILS # (AUTO) 0.1 10^3/uL (0.0-0.3); EOSINOPHILS % (AUTO) 1 % (0-10); HEMATOCRIT 33 % (35-52); HEMOGLOBIN 10.5 g/dL (11.5-16.0); LYMPHOCYTES # (AUTO) 1.1 10^3/uL (1.0-4.0); LYMPHOCYTES % (AUTO) 10 % (12-44); MEAN CORPUSCULAR HEMOGLOBIN 27 pg (25-34); MEAN CORPUSCULAR HGB CONC 32 g/dL (32-36); MEAN CORPUSCULAR VOLUME 86 fL (80-99); MEAN PLATELET VOLUME 9.5 fL (9.0-12.2); MONOCYTES # (AUTO) 0.7 10^3/uL (0.0-1.0); MONOCYTES % (AUTO) 6 % (0-12); NEUTROPHILS # (AUTO) 9.2 10^3/uL (1.8-7.8); NEUTROPHILS % (AUTO) 80 % (42-75); PLATELET COUNT 226 10^3/uL (130-400); WHITE BLOOD COUNT 11.5 10^3/uL (4.3-11.0)
[2022-06-07 05:20] LABS: ALBUMIN 2.5 GM/DL (3.2-4.5); POTASSIUM 4.2 MMOL/L (3.6-5.0)
[2022-06-07 05:21] LABS: CALCIUM 8.1 MG/DL (8.5-10.1)
[2022-06-07 05:22] LABS: TOTAL PROTEIN 6.3 GM/DL (6.4-8.2)
[2022-06-07 05:24] LABS: BILIRUBIN,TOTAL 0.8 MG/DL (0.1-1.0)
[2022-06-07 05:26] LABS: CREATININE SERUM 0.6 MG/DL (0.60-1.30)
[2022-06-07 08:09] VITALS: BP 122/73
[2022-06-07] MEDS: DOCUSATE SODIUM 100 MG (COLACE) CAP PO SCH (08:40)
[2022-06-07] MEDS: SENNOSIDES 8.6 MG (SENOKOT) TAB PO SCH (08:40)
[2022-06-07] MEDS: polyethylene glycoL POWDER 17 GM (MIRALAX) PACK PO SCH (08:40)
[2022-06-07] MEDS: CALCIUM CARB + VIT D 600 MG (CALCARB + D) TAB PO SCH (09:25)
[2022-06-07] MEDS: RIVAROXABAN 20 MG TABLET (XARELTO) PO SCH (09:25)
[2022-06-07] MEDS: CYCLOBENZAPRINE 10 MG (FLEXERIL) TAB PO PRN (09:25)
[2022-06-07] MEDS: PRESERVISION AREDS SOFTGEL (BAUSH & LOMB) PO SCH (09:26)
[2022-06-07] MEDS: FLUCONAZOLE 100 MG/50 ML 50 ML IV SCH (09:26)
[2022-06-07] MEDS ORDERED: TROUGH ORDER-PHARMACY XX NR (10:00)
[2022-06-07] MEDS ORDERED: LIDO1ADH78 TP (11:34)
[2022-06-07] MEDS ORDERED: RIVA20TA2 PO (11:34)
[2022-06-07] MEDS ORDERED: ESCI5TAB PO (11:34)
[2022-06-07] MEDS ORDERED: LEVO100T7 PO (11:34)
[2022-06-07] MEDS ORDERED: METO50TA7 PO (11:34)
[2022-06-07] MEDS ORDERED: OXC5T PO (11:34)
[2022-06-07] MEDS ORDERED: FEN12TD TD (11:34)
[2022-06-07] MEDS ORDERED: CYCL10TA25 PO (11:34)
[2022-06-07] MEDS ORDERED: ONDA4TAB11 PO (11:34)
--- NOTE | 2022-06-07 11:36 | Discharge Inst-Skilled Nursing ---
Discharge Inst-Skilled NF Reconcile Patient Problems Problems Reviewed?: Yes Chief Complaint Carmen Saunders is an 82 year old female who presented to the [place] ER with back pain and was found to be hypotensive. She has been admitted with sepsis and urinary tract infections a couple times recently. She denies fevers and chills. She denies shortness of breath and cough. She denies dysuria, frequency, and urgency. She denies headache, neck pain, and photophobia. She has back pain in her lower back on the right side. She denies rash. She denies lightheadedness and dizziness. She has not been on antibiotics since she completed a course of antibiotcs nearly a month ago for a urinary tract infection. Patient Instructions Patient Problems: UTI Debility COmpression fractures Goal: [place] Consult/Follow Up/Orders Skilled NF Admit to: [facility] Certification (SNF) I certify that SNF services are required to be given on an inpatient basis because of the above named patient's need for [facility] care on a continuing basis for the conditions(s) for which he/she was receiving inpatient hospital services prior to his/her transfer to the SNF. Nursing Home Facility Order: Nursing Services, Appraisal Coordinator-Evaluate & Treat, Physical Therapy-Evaluate & Treat Oxygen Delivery Method: NIV CPAP Resuscitation Status: Do Not Resuscitate New & Resume Previous Orders New Medications: Cyclobenzaprine HCl (Cyclobenzaprine HCl) 10 Mg Tablet 10 MG PO Q8H PRN for MUSCLE SPASMS, #20 TAB Fentanyl (Fentanyl Patch 12 MCG) 12 Mcg/Hour Patch.td72 12 MCG TD Q72H for 3 Days, PATCH Ondansetron (Ondansetron Odt) 4 Mg Tab.rapdis 4 MG PO Q6H PRN for NAUSEA/VOMITING-1ST LINE, #20 TAB Oxycodone Hcl (Oxyir Tablet) 5 Mg Tab 5 MG PO Q4H PRN for PAIN-SEVERE (8-10), #30 TAB Changed Medications: Metoprolol Succinate (Metoprolol Succinate) 50 Mg Tab.er.24h 25 MG PO HS, #30 TAB (Changed from: TAKES OF A 50MG) daily Continued Medications: Acetaminophen (Tylenol Extra Strength) 500 Mg Tablet 500 MG PO BID PRN PRN for PAIN-MILD (1-4), TAB Calcium Carbonate/Vitamin D3 (Calcium 600 + Vit D3 Tablet) 600 Mg Calcium-10 Mcg (400 Unit) Tablet 1 EACH PO BID, TAB Cholecalciferol (Vitamin D3) (Vitamin D3) 50 Mcg (2000 Unit) Capsule 50 MCG PO 1800, CAP Escitalopram Oxalate (Lexapro) 5 Mg Tablet 5 MG PO DAILY, #30 TAB (This prescription has been renewed) Levothyroxine Sodium (Levothyroxine Sodium) 100 Mcg Tablet 100 MCG PO DAILY, #30 TAB (This prescription has been renewed) Lidocaine (Lidocaine) 4 % Adh..patch 1 EACH TP Q12H PRN for PAIN-MODERATE (5-7), #30 PATCH (This prescription has been renewed) Rivaroxaban (Xarelto Tablet) 20 Mg Tablet 20 MG PO HS, #30 TAB (This prescription has been renewed) Vit C/E/Zn/Coppr/Lutein/Zeaxan (Preservision Areds 2 Softgel) 250MG-90MG Capsule 1 EACH PO BID, CAP Discontinued Medications: Buprenorphine (Butrans) 5 Mcg/Hour Patch.tdwk 2 EACH TD TUES, PATCH USING 2 (5MCG) PATCHES Naproxen (Naproxen) 500 Mg Tablet 500 MG PO Q12H PRN for PAIN-MODERATE (5-7) for 3 Days, TAB Other Instructions Keep le catheter until ambulatory Opal Ortiz Jun 07, 2022 11:35 OPAL ORTIZ DO Jun 07, 2022 11:36
--- NOTE | 2022-06-07 11:37 | Discharge Summary ---
Discharge Summary Hospital Course Was the Problem List Reviewed?: Yes Problems/Dx: (1) Septic shock Status: Resolved (2) Gram-negative bacteremia Status: Acute (3) Spondylosis Status: Acute (4) Compression fracture of lumbar vertebra Status: Acute Qualifiers: Qualified Codes: S32.040A - Wedge compression fracture of fourth lumbar vertebra, initial encounter for closed fracture (5) MEGAN (acute kidney injury) Status: Acute (6) Back pain Status: Acute Qualifiers: Qualified Codes: M54.50 - Low back pain, unspecified (7) Obesity Status: Chronic (8) Paroxysmal atrial fibrillation Status: Chronic (9) Hypothyroidism Status: Chronic Hospital Course Date of Admission: May 31, 2022 at 16:10 Admission Diagnosis : [facility] Date of [facility]: 06/07/22 Discharge Diagnosis: [ ] Hospital Course: Carmen Saunders is an 82 y/o female who presented to the [place] ED with back pain and was found to be hypotensive. She had been admitted with sepsis & UTIs twice in the recent past, most recently in April 2022 with E. coli UTI and sepsis. Review of systems was positive for right-sided low back pain, and negative for fever, chills, headache, neck pain, dizziness, shortness of breath, cough, rash, urinary frequency & urgency, and dysuria, dysuria, frequency, and urgency. Ms. Saunders not been on antibiotics since completing the course that was associated with her April 2022 admission. Urinalysis & CXR were unremarkable, and blood cultures were drawn. She was started on Levophed, IV cefepime, & IV fluids. Admitted to the ICU at [facility] on 05/31/22. Diagnoses on admission included shock (rule out sepsis), MEGAN, a-fib, hypothyroidism, & back pain. Her hypotension had resolved by 06/01 and Levophed was stopped. Blood cultures obtained in [place] grew gram negative bacilli, and IV vancomycin was initiated. CT spine on 06/01 demonstrated severe lumbar spondylosis and a compression fracture at L4. On 06/02 she was transferred from ICU to floor due to continued clinical improvement. We stopped vancomycin & continued cefepime. On 06/03, the in-house blood cultures grew E. coli, so cefepime was discontinued and we started IV ceftriaxone. On 06/05, her WBC count jumped back up to 14.1 & procalcitonin was elevated at 1.22, causing concern for recurrent infection. We switched IV ceftriaxone to IV vancomycin + IV meropenem. Urinalysis showed trace bacteria, protein, & ketones; 2+ RBC; negative for WBC & leukocyte esterase; nitrite negative; moderate yeast. Urine & blood cultures were ordered. On 06/06, WBC decreased slightly to 13.2, and urine culture grew yeast (>100K/ml) so IV fluconazole was begun. We discontinued IV vancomycin & IV meropenem, and started IV ceftriaxone. Ms. Saunders unfortunately dealt with intermittently severe back pain throughout her hospitalization that limited her ability to participate with PT & OT. On 06/07, back pain was under better control with fentanyl patch & PRN oxycodone. Did not require PRN morphine yesterday 06/06, and she was able to do some light stretching and range of motion exercises with OT yesterday. She is discharging today 06/07 to [facility]. We will change IV ceftriaxone to PO cefdinir. Changing IV fluconazole to PO. Continue current pain regimen of PRN morphine, PRN oxycodone, & PRN fentanyl patches. Labs and Pending Lab Test: Laboratory Tests 06/07/22 05:04: White Blood Count 11.5H, Red Blood Count 3.84, Hemoglobin 10.5L, Hematocrit 33L, Mean Corpuscular Volume 86, Mean Corpuscular Hemoglobin 27, Mean Corpuscular Hemoglobin Concent 32, Red Cell Distribution Width 24.0H, Platelet Count 226, Mean Platelet Volume 9.5, Immature Granulocyte % (Auto) 2, Neutrophils (%) (Auto) 80H, Lymphocytes (%) (Auto) 10L, Monocytes (%) (Auto) 6, Eosinophils (%) (Auto) 1, Basophils (%) (Auto) 0, Neutrophils # (Auto) 9.2H, Lymphocytes # (Auto) 1.1, Monocytes # (Auto) 0.7, Eosinophils # (Auto) 0.1, Basophils # (Auto) 0.0, Immature Granulocyte # (Auto) 0.3H, Sodium Level 131L, Potassium Level 4.2, Chloride Level 96L, Carbon Dioxide Level 24, Anion Gap 11, Blood Urea Nitrogen 10, Creatinine 0.60, Estimat Glomerular Filtration Rate 90, BUN/Creatinine Ratio 17, Glucose Level 105, Calcium Level 8.1L, Corrected Calcium 9.3, Total Bilirubin 0.8, Aspartate Amino Transf (AST/SGOT) 33, Alanine Aminotransferase (ALT/SGPT) 15, Alkaline Phosphatase 119, Total Protein 6.3L, Albumin 2.5L 06/07/22 09:33: Vancomycin Level Trough 7.0L Microbiology 06/05/22 Blood Culture - Preliminary, Resulted No growth 06/05/22 Urine Culture - Preliminary, Resulted YEAST 05/31/22 MRSA Screen - Final, Complete MRSA not isolated Home Meds Active Ondansetron Odt (Ondansetron) 4 Mg Tab.rapdis 4 Mg PO Q6H PRN Oxyir Tablet (Oxycodone HCl) 5 Mg Tab 5 Mg PO Q4H PRN Fentanyl Patch 12 MCG (Fentanyl) 12 Mcg/Hour Patch.td72 12 Mcg TD Q72H 3 Days Cyclobenzaprine HCl 10 Mg Tablet 10 Mg PO Q8H PRN Lidocaine 4 % Adh..patch 1 Each TP Q12H PRN Lexapro (Escitalopram Oxalate) 5 Mg Tablet 5 Mg PO DAILY Xarelto Tablet (Rivaroxaban) 20 Mg Tablet 20 Mg PO HS Metoprolol Succinate 50 Mg Tab.er.24h 25 Mg PO HS daily Levothyroxine Sodium 100 Mcg Tablet 100 Mcg PO DAILY Reported Butrans (Buprenorphine) 5 Mcg/Hour Patch.tdwk 2 Each TD TUES USING 2 (5MCG) PATCHES Calcium 600 + Vit D3 Tablet (Calcium Carbonate/Vitamin D3) 600 Mg Calcium-10 Mcg (400 Unit) Tablet 1 Each PO BID Naproxen 500 Mg Tablet 500 Mg PO Q12H PRN 3 Days Tylenol Extra Strength (Acetaminophen) 500 Mg Tablet 500 Mg PO BID PRN PRN Vitamin D3 (Cholecalciferol (Vitamin D3)) 50 Mcg (2000 Unit) Capsule 50 Mcg PO 1800 Preservision Areds 2 Softgel (Vit C/E/Zn/Coppr/Lutein/Zeaxan) 250MG-90MG Capsule 1 Each PO BID Assessment/Pt Instructions PCP for long-term rounds Discharge Planning: <30 minutes discharge planning Discharge Physical Examination Vital Signs Vital Signs Date Time Temp Pulse Resp B/P (MAP) Pulse Ox O2 Delivery O2 Flow Rate FiO2 06/07/22 08:09 35.8 79 16 122/73 (89) 94 NIV CPAP 06/06/22 11:04 0.00 0.00 General Appearance: No Apparent Distress, WD/WN, Chronically ill Allergies: Coded Allergies: No Known Drug Allergies (Unverified , 04/25/22) Discharge Summary Date of Admission May 31, 2022 at 16:10 Date of Discharge Discharge Date: Jun 07, 2022 Admission Diagnosis Shock Discharge Diagnosis Start Diflucan Add fentanyl patch Discharge to [facility] tomorrow (1) Septic shock Status: Resolved (2) Gram-negative bacteremia Status: Acute (3) Spondylosis Status: Acute (4) Compression fracture of lumbar vertebra Status: Acute Qualifiers: Qualified Codes: S32.040A - Wedge compression fracture of fourth lumbar vert ebra, initial encounter for closed fracture (5) MEGAN (acute kidney injury) Status: Acute (6) Back pain Status: Acute Qualifiers: Qualified Codes: M54.50 - Low back pain, unspecified (7) Obesity Status: Chronic (8) Paroxysmal atrial fibrillation Status: Chronic (9) Hypothyroidism Status: Chronic JEYSON SHEFFIELD DO Jun 07, 2022 11:37
[2022-06-07 11:43] VITALS: BP 141/69
--- NOTE | 2022-06-07 12:11 | Progress Note ---
SAIMA GREENE 06/07/22 1211: Progress Note Carmen Saunders is an 82 y/o female who presented to the [place] ED with back pain and was found to be hypotensive. She had been admitted with sepsis & UTIs twice in the recent past, most recently in April 2022 with E. coli UTI and sepsis. Review of systems was positive for right-sided low back pain, and negative for fever, chills, headache, neck pain, dizziness, shortness of breath, cough, rash, urinary frequency & urgency, and dysuria, dysuria, frequency, and urgency. Ms. Saunders not been on antibiotics since completing the course that was associated with her April 2022 admission. Urinalysis & CXR were unremarkable, and blood cultures were drawn. She was started on Levophed, IV cefepime, & IV fluids. Admitted to the ICU at [facility] on 05/31/22. Diagnoses on admission included shock (rule out sepsis), MEGAN, a-fib, hypothyroidism, & back pain. Her hypotension had resolved by 06/01 and Levophed was stopped. Blood cultures obtained in [place] grew gram negative bacilli, and IV vancomycin was initiated. CT spine on 06/01 demonstrated severe lumbar spondylosis and a compression fracture at L4. On 06/02 she was transferred from ICU to floor due to continued clinical improvement. We stopped vancomycin & continued cefepime. On 06/03, the in-house blood cultures grew E. coli, so cefepime was discontinued and we started IV ceftriaxone. On 06/05, her WBC count jumped back up to 14.1 & procalcitonin was elevated at 1.22, causing concern for recurrent infection. We switched IV ceftriaxone to IV vancomycin + IV meropenem. Urinalysis showed trace bacteria, protein, & ketones; 2+ RBC; negative for WBC & leukocyte esterase; nitrite negative; moderate yeast. Urine & blood cultures were ordered. On 06/06, WBC decreased slightly to 13.2, and urine culture grew yeast (>100K/ml) so IV fluconazole was begun. We discontinued IV vancomycin & IV meropenem, and started IV ceftriaxone. Ms. Saunders unfortunately dealt with intermittently severe back pain throughout her hospitalization that limited her ability to participate with PT & OT. On 06/07, back pain was under better control with fentanyl patch & PRN oxycodone. Did not require PRN morphine yesterday 06/06, and she was able to do some light stretching and range of motion exercises with OT yesterday. She is discharging today 06/07 to [facility]. We will change IV ceftriaxone to PO cefdinir. Changing IV fluconazole to PO. Continue current pain regimen of PRN morphine, PRN oxycodone, & PRN fentanyl patches. OPAL SHEFFIELD DO 06/07/221955: Supervisory-Addendum Brief Verification & Attestation Participated in pt care: history, MDM, physical Personally performed: exam, history, MDM, supervision of care Care discussed with: Medical Student Procedures: n/a Results interpretation: Verified all documentation Verification and Attestation of Medical Student E/M Service A medical student performed and documented this service in my presence. I reviewed and verified all information documented by the medical student and made modifications to such information, when appropriate. I personally performed the physical exam and medical decision making. Opal Sheffield, Jun 07, 2022,19:56 SAIMA GREENE Jun 07, 2022 12:11 OPAL SHEFFIELD DO Jun 07, 2022 19:56
[2022-06-07] MEDS: fentaNYL PATCH 12 MCG (DURAGESIC) TD SCH (13:24)
[2022-06-08] MEDS ORDERED: FLUC100T PO (07:29)
[2022-06-08] MEDS ORDERED: CEFD300C3 PO (07:29)
[2022-06-09] MEDS ORDERED: FENTANYL PATCH REMOVAL TP SCH (10:59)
== END 2022-06-07 13:27 | DRG 871 ==
LOC: ICU 16:10 → 4TH 06-02 14:40
PROVIDERS: ADMIT Internal Medicine; ATTEND Internal Medicine
PROC: 5A09357 Assistance with Respiratory Ventilation, Less than 24 Consecutive Hours, Continuous Positive Airway Pressure (ICD-10-PCS; principal; 2022-05-31)
DX: A41.50 Gram-negative sepsis, unspecified (principal); R65.21 Severe sepsis with septic shock; N17.9 Acute kidney failure, unspecified; M48.56XA Collapsed vertebra, not elsewhere classified, lumbar region, initial encounter for fracture; Z68.41 Body mass index [BMI] 40.0-44.9, adult; E66.9 Obesity, unspecified; I48.0 Paroxysmal atrial fibrillation; I10 Essential (primary) hypertension; M54.50 Low back pain, unspecified; M47.9 Spondylosis, unspecified; E03.9 Hypothyroidism, unspecified; R53.81 Other malaise; G89.29 Other chronic pain; Z66 Do not resuscitate
CPT/HCPCS: 36415; 71045; 72130; 72133; 80048; 80053; 80076; 80202; 81000; 83605; 83735; 84145; 85007; 85025; 85027; 87040; 87077; 87081; 87088; 87186